=== PATIENT | male | born 1940 | race Caucasian/White ===

== ENCOUNTER 2018-02-09 12:48 | Emergency (ER) | payer MEDICARE, OTHER, SELFPAY ==
[2018-02-09 12:49] VITALS: BP 174/90; PULSE 61; RESP 14; TEMP 36.6; O2SAT 96; BMI 25.4
--- NOTE | 2018-02-09 13:07 | RAD_ITS ---
STUDY: X-RAY CHEST REASON FOR EXAM: Male, 77 years old. Chest pain for 2 weeks. TECHNIQUE: Frontal and lateral views of the chest. COMPARISON: None. FINDINGS: The lungs are hyperexpanded. There is no demonstrated pleural abnormality. There is borderline cardiomegaly with sternotomy wires and a dual-lead cardiac pacer. Normal mediastinum and heather. Normal visualized pulmonary arteries. There is atherosclerotic calcification of the aortic arch with tortuosity. Normal visualized thoracic spine. Normal visualized ribs, clavicles, and shoulders. There is no demonstrated abnormality of the visualized soft tissue structures of the upper abdomen. RAD/Chest PA and Lateral IMPRESSION: Borderline cardiomegaly with hyperexpansion. No acute or active cardiopulmonary disease. Electronically Signed: Carlos Alberto Santana MD at 14:01 EDT , Service support ,
--- NOTE | 2018-02-09 13:07 | EKG12_ITS ---
Test Reason : CP Blood Pressure : / mmHG Vent. Rate : 065 BPM Atrial Rate : 065 BPM P-R Int : 168 ms QRS Dur : 142 ms QT Int : 430 ms P-R-T Axes : 052 013 036 degrees QTc Int : 447 ms Normal sinus rhythm Right bundle branch block Abnormal ECG Confirmed by MARIANNA NICOLE, CATHERINE ([id number]), script editor MARSHA DAMIAN ([id number]) on 02/11/2018 2:11:34 PM Referred By: ERIN Confirmed By:CATHERINE CABRAL MD
--- NOTE | 2018-02-09 13:14 | PCA ---
NO OLD EKG
[2018-02-09 13:44] LABS: Absolute Lymphocyte Count 3.06 X10^3/ul (0.83-4.51); Absolute Neutrophil Count 2.3 X10^3/uL (2.0-7.7); Basophil# 0.01 X10^3/uL; Basophil% 0.2 % (0-1); Eosinophil# 0.18 X10^3/uL; Hematocrit 49.4 % (40-54); Hemoglobin 17.3 g/dl (13.0-16.5); Lymphocyte # 3.06 X10^3/ul (4.0); Mean Corpuscular Hgb 35.4 pg (27.0-32.0); Mean Platelet Vol. 9.9 fl (6.2-12.0); Monocyte% 8.3 % (0-10); Neutrophil # 2.25 X10^3/uL (2.7-7.7); Neutrophil % 37.5 % (47-70); POSITIVE COUNT NO; POSITIVE DIFFERENTIAL NO; POSITIVE MORPHOLOGY NO; Platelet Count 157 K/mm3 (150-450); RBC Distribution Width SD 48.9 fl (35.1-43.9); Red Blood Count 4.89 M/mm3 (4.6-6.2)
[2018-02-09 14:01] LABS: Anion Gap 7 (5-15); BUN 19 mg/dL (7-18); BUN/Creat Ratio 18.8 RATIO (10-20); Calcium,Total 9.5 mg/dL (8.5-10.1); Chloride 104 mmol/L (98-107); Creatinine, Serum 1.01 mg/dL (0.70-1.30); EST Glomerular Filtration Rate 77 mL/min (>60); Est Glom Filt Rate - Afr Amer 93 mL/min (>60); Estimated Creatinine Clearance 65.25 ml/min; Glucose 139 mg/dL (74-106); Potassium 4.2 mmol/L (3.5-5.1); Sodium Level 140 mmol/L (136-145)
--- NOTE | 2018-02-09 14:50 | ED.VISSUMM ---
- ER Visit Summary Date of Service: 02/09/18 Chief Complaint: Chest pain History of Present Illness: The patient is a 77 M presenting for evaluation secondary chest pain. Patient has an underlying history of a quintuple bypass as well as cardiac stenting in the past. Patient states that a couple weeks ago [place] and had an onset of chest pain. He described it as a tightness the last 2-3 minutes. He states that he has not had any similar episodes since then, but was concerned because the symptoms he was having were similar to what he had when he had his [place] in the past. Patient denies any DVT or PE risk factors. He is going to be establishing with Dr. Diaz a week from Friday. Physical Examination: Vital signs are within normal limits, patient is afebrile. General: Patient is well-nourished well-developed and in no acute distress. Head: Normocephalic, atraumatic Eyes: Pupils equal round and reactive bilaterally, extra occular motion intact bialterally ENT: Moist mucous membranes Neck: Supple, no lymphadenopathy, no JVD, no meningismus CVS: Heart regular rate and rhythm, no murmurs, rubs or gallops, radial pulses 2+ bilaterally Resp: Respirations nondistressed, lung sounds clear bilaterally Abdomen: Soft, nontender, nondistended, no palpable masses, normal bowel sounds Back: Nontender Extremities: Nontender, atraumatic, active full range of motion, no peripheral edema Skin: warm, no rashes, no petechia Neuro: Alert and oriented x 4, CN 2-12 intact, no lateralizing neurological defecits Psyc: Normal affect Test Results: EKG demonstrates right bundle branch block with a rate of [address] segments normal T waves. Chest x-ray shows cardiomegaly. CBC chemistry troponin are unremarkable. Emergency Department Course and Treatment: Patient presented for evaluation secondary to chest pain. His workup was negative as noted above. Patient's SUZANNA score is 3 and his heart score is 6. Patient seem to have an episode of stable angina. At this point I do not believe that he requires admission. I discussed patient's case with Dr. Diaz who is in agreement and will follow the patient up as an outpatient. Patient was given signs and symptoms for which to return, and he was discharged in stable condition Disposition: Discharge Impression: 1. Stable angina This note was generated with Kiss[employer] dictation software. It may contain incorrect words, spelling, and punctuation that were not noted in review of the chart prior to signing ED Disposition - Plan for ED Patient: Disposition: Home or Assisted Living Chief Complaint: Chest Pain Instructions: ED Chest Pain Angina Stable Referrals: Gregg Diza MD [STAFF PHYSICIAN] - Keep Velma appointment
--- NOTE | 2018-02-09 14:55 | ED.DCSUM_ITS ---
- ER Visit Summary Date of Service: 02/09/18 Chief Complaint: Chest pain History of Present Illness: The patient is a 77 M presenting for evaluation secondary chest pain. Patient has an underlying history of a quintuple bypass as well as cardiac stenting in the past. Patient states that a couple weeks ago he [place] and had an onset of chest pain. He described it as a tightness the last 2-3 minutes. He states that he has not had any similar episodes since then, but was concerned because the symptoms he was having were similar to what he had when he had his [place] in the past. Patient denies any DVT or PE risk factors. He is going to be establishing with Dr. Diaz a week from Friday. Physical Examination: Vital signs are within normal limits, patient is afebrile. General: Patient is well-nourished well-developed and in no acute distress. Head: Normocephalic, atraumatic Eyes: Pupils equal round and reactive bilaterally, extra occular motion intact bialterally ENT: Moist mucous membranes Neck: Supple, no lymphadenopathy, no JVD, no meningismus CVS: Heart regular rate and rhythm, no murmurs, rubs or gallops, radial pulses 2 + bilaterally Resp: Respirations nondistressed, lung sounds clear bilaterally Abdomen: Soft, nontender, nondistended, no palpable masses, normal bowel sounds Back: Nontender Extremities: Nontender, atraumatic, active full range of motion, no peripheral edema Skin: warm, no rashes, no petechia Neuro: Alert and oriented x 4, CN 2-12 intact, no lateralizing neurological defecits Psyc: Normal affect Test Results: EKG demonstrates right bundle branch block with a rate of [address] segments normal T waves. Chest x-ray shows cardiomegaly. CBC chemistry troponin are unremarkable. Emergency Department Course and Treatment: Patient presented for evaluation secondary to chest pain. His workup was negative as noted above. Patient's SUZANNA score is 3 and his heart score is 6. Patient seem to have an episode of stable angina. At this point I do not believe that he requires admission. I discussed patient's case with Dr. Diaz who is in agreement and will follow the patient up as an outpatient. Patient was given signs and symptoms for which to return, and he was discharged in stable condition Disposition: Discharge Impression: 1. Stable angina This note was generated with [employer] dictation software. It may contain incorrect words, spelling, and punctuation that were not noted in review of the chart prior to signing ED Disposition - Plan for ED Patient: Disposition: Home or Assisted Living Chief Complaint: Chest Pain Instructions: ED Chest Pain Angina Stable Referrals: Gregg Diaz MD [STAFF PHYSICIAN] - Keep Velma appointment
[2018-02-09 14:57] VITALS: BP 174/89; PULSE 71; RESP 16; O2SAT 98
== END 2018-02-09 14:58 | disposition home or self-care (01) ==
PROVIDERS: Emergency Provider Emergency Medicine; Family Provider Family Medicine; PCP Family Medicine
DX: I25.118 Atherosclerotic heart disease of native coronary artery with other forms of angina pectoris (principal); I25.2 Old myocardial infarction; Z95.1 Presence of aortocoronary bypass graft; Z95.5 Presence of coronary angioplasty implant and graft
CPT/HCPCS: 71046; 80048; 84484; 85025; 93005; 99284

== ENCOUNTER → 2018-03-05 07:03 | Outpatient (CLI) | payer MEDICARE, OTHER, SELFPAY ==
--- NOTE | 2018-03-05 07:06 | ECHOD_ITS ---
Reason For Study: CAD Procedure This was a 2D Doppler, Color Flow transthoracic echocardiogram. The exam was of adequate technical quality. Exam performed in department. Left Ventricle Normal LV size. Sigmoid septum. Left ventricular systolic function is normal. The estimated ejection fraction is 55 %. Diastolic dysfunction: considered indeterminate. No regional wall motion abnormalities noted. Right Ventricle Normal RV size. ICD or pacer leads identified within the right ventricle. Normal systolic function. Atria The left atrium is mildly enlarged. Normal right atrium. ICD or pacer leads identified within the right atrium. No doppler evidence for ASD. Mitral Valve Normal mitral valve. Mild diffuse mitral valve thickening. Mild mitral valve prolapse, posterior leaflet. Trivial mitral valve insufficiency. Tricuspid Valve Normal tricuspid valve. Trivial tricuspid valve insufficiency. Right ventricular systolic pressure estimated to be 23 mmHg. Aortic Valve Trisinus/trileaflet aortic valve. Normal aortic valve. Pulmonic Valve The pulmonic valve is not well visualized. Trivial pulmonic valve insufficiency. Great Vessels Normal sized aortic root. Pericardium/Pleural No pericardial effusion. MMode/2D Measurements & Calculations LVIDd: 3.8 cm IVSd: 0.82 cm Ao root diam: 3.1 cm LVIDs: 3.0 cm FS: 22.6 % LA dimension: 3.2 cm LAV(MOD-bp): 43.8 ml EDV(MOD-sp4): 101.4 ml EDV(MOD-sp2): 111.1 ml LAV(MOD-bp) Indexed: 22.1 ml/m2 ESV(MOD-sp4): 60.0 ml EF(MOD-sp2): 64.1 % LAV(MOD-sp2): 42.2 ml EF(MOD-sp4): 40.9 % LAV(MOD-sp4): 39.8 ml SV(MOD-sp4): 41.4 ml SV(MOD-sp2): 71.3 ml LA A4 area: 15.4 cm2 RA A4 area: 12.7 cm2 Doppler Measurements & Calculations MV E max deejay: 53.2 cm/sec Lat Peak E' Deejay: 5.3 cm/sec Med Peak E' Deejay: 6.0 cm/sec MV A max deejay: 71.2 cm/sec E/E' lat: 10.0 E/E' med: 8.9 MV E/A: 0.75 Ao V2 max: 93.7 cm/sec LV V1 max: 78.6 cm/sec PA V2 max: 117.5 cm/sec Ao max P.5 mmHg LV V1 max P.5 mmHg TR max deejay: 224.1 cm/sec TR max P.1 mmHg Interpretation Summary Left ventricular systolic function is normal. The estimated ejection fraction is 55 %. Sigmoid septum. The left atrium is mildly enlarged. Mild diffuse mitral valve thickening. Mild mitral valve prolapse, posterior leaflet Trivial mitral valve insufficiency. Trivial tricuspid valve insufficiency. Trivial pulmonic valve insufficiency. Right ventricular systolic pressure estimated to be 23 mmHg. Diastolic dysfunction: considered indeterminate ICD or pacer leads identified within the right atrium ICD or pacer leads identified within the right ventricle. Ordering Physician: Gregg Diaz Referring Physician: MICHAEL VANG Performed By: Antonella Ashton, HERICS, RVT
--- NOTE | 2018-03-05 19:04 | STRESSREP_ITS ---
Stress Test Report Date: 03/05/2018 Procedure: Pharmacologic stress nuclear imaging study Indications: Chest pain; CAD; PCI Consent: Per the patient Procedure: The patient underwent pharmacologic (Regadenoson) evaluation with a peak heart rate of 97 beats per minute (66 predicted maximal heart rate) and a peak blood pressure of 196/98 mmHg. The baseline ECG demonstrated sinus rhythm; right bundle branch block pattern. The peak pharmacologic ECG demonstrated no obvious ECG changes. There were no cardiac dysrhythmias pretest, during pharmacologic infusion, or recovery. There was no complaint of chest discomfort during pharmacologic infusion or recovery. The examination was discontinued secondary to completion of protocol. Impression: 1. Pharmacologic (Regadenoson) evaluation 2. Peak pharmacologic ECG with no obvious ECG changes. 3. No cardiac dysrhythmias pretest, during pharmacologic infusion, or recovery 4. Nuclear images pending Myocardial perfusion imaging study: Technique: The patient was injected with 10.8 millicuries of technetium 99m Cardiolite and subsequently rest SPECT Cardiolite nuclear imaging was obtained in the horizontal long, vertical long, and short axis views. The patient underwent pharmacologic (Regadenoson) evaluation with a peak heart rate of 97 beats per minute (66% percent predicted maximal heart rate) and a peak blood pressure of 196/98 mmHg. The patient was injected with the 33.5 millicuries of technetium 99m Cardiolite and subsequently stress SPECT Cardiolite nuclear imaging was obtained in the horizontal long, vertical long, and short axis views. A gated Cardiolite study at peak stress was obtained. Interpretation: Rest and stress SPECT Cardiolite nuclear imaging status post realignment, normalization, and attenuation correction demonstrate the appearance, status post stress, of an area of decreased cardio perfusion/tracer uptake in the distal inferior and inferior apical segments. There is end systolic thickening and brightening. The gated Cardiolite study demonstrates myocardial thickening and inward wall motion. The reported LVEF is 69 %. Impression: 1. And stress SPECT cardio light nuclear imaging demonstrate status post stress and area of decreased tracer uptake in portions of the distal inferior and inferior apical segments appearing concerning for an area of stress-induced myocardial ischemia. 2. The gated Cardiolite study reports an LVEF of 69 %. This note was generated with TutorialTabation software. It may contain incorrect words, spelling, and punctuation that were not noted in checking the note before signing.
== END ==
PROVIDERS: Family Provider Family Medicine; PCP Family Medicine; Visit Provider Internal Medicine Cardiovascular Disease
DX: I25.10 Atherosclerotic heart disease of native coronary artery without angina pectoris (principal); R07.9 Chest pain, unspecified; Z95.0 Presence of cardiac pacemaker; Z95.1 Presence of aortocoronary bypass graft; Z98.61 Coronary angioplasty status
CPT/HCPCS: 78452; 93017; 93306; A9500; A4216; J2785

== ENCOUNTER → 2018-03-17 08:54 | Day surgery (SDC) | payer MEDICARE, OTHER, SELFPAY ==
[2018-03-16 09:15] LABS: Hematocrit 51.2 % (40-54); Mean Corp Hgb Conc 36.3 g/gl (32-36); Mean Corpuscular Hgb 36.5 pg (27.0-32.0); Mean Corpuscular Volume 100.6 fL (80-94); Mean Platelet Vol. 9.8 fl (6.2-12.0); Platelet Count 135 K/mm3 (150-450); RBC Distribution Width SD 48.2 fl (35.1-43.9); Red Blood Count 5.09 M/mm3 (4.6-6.2); White Blood Count 6.7 K/mm3 (4.4-11.0)
[2018-03-16 09:24] LABS: Prothrombin Time (Protime)PT. 13.2 SECONDS (11.7-14.9)
[2018-03-16 09:25] LABS: Partial Thromboplast Time 25.6 Seconds (24.1-36.2)
[2018-03-16 09:38] LABS: Anion Gap 5 (5-15); BUN 15 mg/dL (7-18); BUN/Creat Ratio 13.4 RATIO (10-20); Calcium,Total 9.4 mg/dL (8.5-10.1); Chloride 104 mmol/L (98-107); Creatinine, Serum 1.12 mg/dL (0.70-1.30); EST Glomerular Filtration Rate 68 mL/min (>60); Est Glom Filt Rate - Afr Amer 82 mL/min (>60); Glucose 164 mg/dL (74-106); Potassium 4.4 mmol/L (3.5-5.1); Sodium Level 138 mmol/L (136-145)
[2018-03-16 09:59] LABS: Hemoglobin 18.6 g/dl (13.0-16.5); Scan Indicated on CBC? Y/N NO
[2018-03-16 14:50] VITALS: BMI 25.4
--- NOTE | 2018-03-17 11:45 | CL.D_ITS ---
Patient Name: FRANK MUSTAFA Study Date: 03/17/2018 Performing: Gregg Diaz MD Ht: 70.07 inches 178 cm : 1940 Wt: 176.37 lbs 80 kg Age: 77 Gender: male BSA: 1.98 PROCEDURE(S) PERFORMED IF02-OIE/COR/LV/CABG CLINICAL PROFILE AND INDICATIONS Indications: Other: Abnormal Stress Nuclear Study Heart Failure: None Stress/Imaging Stress Test w/SPECT MPI: Yes Result: PositiveStress Test with SPECT MPI: Positive Angina Classification Anginal Classification w/in 2 Weeks: CCS III CAD Presentations: Stable angina. CONCLUSIONS Normal Left Ventricular End Diastolic Pressure Segmented LV systolic dysfunction- Mild LVEF: by LV gram 50 % [place] Multivessel CAD BYERS to LAD: patent SVG to DX1: patent SVG to OM3: patent SVG to OM1: previously reported as occluded SVG to RCA: previously reported as occluded RECOMMENDATIONS Risk factor modification Medical therapy DESCRIPTION OF PROCEDURE The patient arrived to the procedure lab. The risks and benefits of the procedure as well as a full d escription of our services here and current unavailability of surgical backup were fully explained to the patient and/or their significant other prior to the catheterization. The Timeout was completed, verifying the correct patient and procedure. The patient's procedural site was prepped and draped in the usual fashion. Local anesthetic was given subcutaneously to right groin region with Lidocaine 2%. Using a modified Seldinger technique, arterial access was obtained via the right femoral artery, a 4 Fr sheath was inserted Left Coronary Artery selective angiography was performed in multiple views us ing a 4 Fr. JL4 catheter. Right Coronary Artery selective angiography was then performed in multiple views using a 4 Fr. JR4 catheter. Saphenous Vein graft to the DIAG 1 selective angiography was perfor med in multiple views using a 4 Fr. JR4 catheter. Saphenous Vein graft to the OM 3 selective angiogra phy was performed in multiple views using a 4 Fr. JR4 catheter. Left internal mammary artery graft to the LAD selective angiography was performed in multiple views using a 4 Fr. JR4 catheter. Left Ventr iculography was performed in WAGGONER projection using a 4 Fr. Pigtail catheter. LV to AO pullback pressur es were then recorded.The arterial sheath was pulled and manual compression applied until hemostasis is achieved. CORONARY ANGIOGRAPHY DOMINANCE: Right Dominant LEFT HEART ASSESSMENT Left Ventricular Ejection Fraction: by LV Gram 50 % Inferior Basal Akinesis. Inferior Mid Hypokinesis. Inferior Apical Hypokinesis Normal Left Ventricular End Diastolic Pressure LVEDP: 7 mmHg LEFT MAIN: Mild calcification, Mild luminal irregularities LEFT ANTERIOR DECENDING ARTERY: PROX LAD: Eccentric: 95 % Stenosis MID LAD: Eccentric: 95 % Stenosis DISTAL LAD: Apical: small caliber vessel: diffuse: irregular: subtotally occluded CIRCUMFLEX ARTERY: PROX CIRC: Mild luminal irregularities, Non-obstructive, is occluded OM 1: Proximal - small caliber vessel: diffuse: irregular 25-50 % Stenosis OM 3: Proximal - fills from the SVG graft with no angiographically significant disease distal to yvette t attachment RIGHT CORONARY ARTERY: PROX RCA: Previously placed stent is patent MID RCA: Mild luminal irregularities RIGHT AV SEGMENT: Previously placed stent is patent GRAFTS: BYERS graft to the Mid LAD is patent Saphenous Vein graft to the 1st Diagonal is patent Saphenous Vein graft to the 3rd OM is patent Saphenous Vein graft to the 1st OM is previously reported as occluded and not reevaluated during this examination Saphenous Vein graft to the RCA is previously reported as occluded and not reevaluated during this ex amination VALVE FINDINGS: Normal Aortic Valve function Normal Mitral Valve function AORTIC ROOT: Angiographically normal COMPLICATIONS No Complications PROCEDURE MEDICATIONS Versed 1 mg IV Versed 1 mg IV Oxygen: 2 L/min via nasal cannula SUMMARY OF HEMODYNAMIC DATA Time AIR REST ECG 09:17:52 ECG 10:26:58 AO 145/80 (106) SA 10:57:41 LV 136/-2, 6 11:01:51 LV 138/-2, 7 11:01:58 LVp 138/-3, 6 11:02:09 AOp 142/76 (103) 11:02:15 LV 162/2, 16 11:13:40 LV 150/1, 13 11:13:48 LV 143/2, 16 11:14:59 LVp 159/1, 19 11:15:14 AOp 160/82 (115) 11:15:19 Signed By Gregg Diaz MD On 03/17/2018 11:44:55 Gregg Diaz MD
== END ==
PROVIDERS: Family Provider Family Medicine; PCP Family Medicine; Visit Provider Internal Medicine Cardiovascular Disease
DX: I25.810 Atherosclerosis of coronary artery bypass graft(s) without angina pectoris (principal); R07.9 Chest pain, unspecified; I10 Essential (primary) hypertension; E78.5 Hyperlipidemia, unspecified; I45.10 Unspecified right bundle-branch block; M19.90 Unspecified osteoarthritis, unspecified site; R94.39 Abnormal result of other cardiovascular function study; Z79.82 Long term (current) use of aspirin; Z79.899 Other long term (current) drug therapy; Z95.0 Presence of cardiac pacemaker; Z95.1 Presence of aortocoronary bypass graft; Z95.5 Presence of coronary angioplasty implant and graft
CPT/HCPCS: 36415; 80048; 85027; 85610; 85730; 93459; 99152; 99153; J7040; C1894; Q9967

== ENCOUNTER 2018-09-18 18:58 | Observation (INO) | payer MEDICARE, OTHER, SELFPAY ==
[2018-09-14 09:18] VITALS: BMI 25.6
[2018-09-18] VITALS (13 sets, daily range): BP systolic 129–190; BP diastolic 72–121; PULSE 64–87; RESP 16–20; TEMP 36.2–36.7; O2SAT 95–97; BMI 25.2
--- NOTE | 2018-09-18 12:53 | EKG12_ITS ---
Test Reason : PRE-OP Blood Pressure : / mmHG Vent. Rate : 124 BPM Atrial Rate : 124 BPM P-R Int : 000 ms QRS Dur : 136 ms QT Int : 166 ms P-R-T Axes : 000 012 000 degrees QTc Int : 238 ms Wide QRS tachycardia with frequent ventricular-paced complexes and Premature supraventricular complex es in a pattern of bigeminy Right bundle branch block Abnormal ECG When compared with ECG of 09-FEB-2018 13:01, Electronic ventricular pacemaker has replaced Sinus rhythm Vent. rate has increased BY 59 BPM Confirmed by SHANNON MELO ([id number]), social media editor MARSHA DAMIAN ([id number]) on 09/30/2018 2:47:37 PM Referred By: Teddy Eli Confirmed By:SHANNON MELO
[2018-09-18 13:20] LABS: Hematocrit 46.1 % (40-54); Hemoglobin 16.2 g/dl (13.0-16.5); Mean Corp Hgb Conc 35.1 g/gl (32-36); Mean Corpuscular Hgb 35.5 pg (27.0-32.0); Mean Corpuscular Volume 101.1 fL (80-94); Mean Platelet Vol. 9.5 fl (6.2-12.0); Platelet Count 234 K/mm3 (150-450); RBC Distribution Width CV 12.2 % (11.6-14.6); RBC Distribution Width SD 44.7 fl (35.1-43.9); Red Blood Count 4.56 M/mm3 (4.6-6.2)
[2018-09-18 13:24] LABS: Scan Indicated on CBC? Y/N NO
[2018-09-18 13:28] LABS: Anion Gap 7 (5-15); BUN 19 mg/dL (7-18); BUN/Creat Ratio 15.6 RATIO (10-20); Calcium,Total 9.1 mg/dL (8.5-10.1); Chloride 105 mmol/L (98-107); Creatinine, Serum 1.22 mg/dL (0.70-1.30); EST Glomerular Filtration Rate 61 mL/min (>60); Est Glom Filt Rate - Afr Amer 74 mL/min (>60); Estimated Creatinine Clearance 54.02 ml/min; Glucose 142 mg/dL (74-106); Sodium Level 141 mmol/L (136-145)
--- NOTE | 2018-09-18 14:15 | RAD_ITS ---
HISTORY: Gallstones. COMPARISON: None FINDINGS: Total Fluoroscopic Time: 61 seconds with total radiation dose 26.2 mgy # of Fluroscopic Images: 121 Multiple spot intraoperative films are presented for evaluation. Gallbladder intraluminal filling defects related to gallstones. No filling defects are identified in the common bile duct. There is no extrahepatic biliary ductal dilatation. There is free flow of contrast into the duodenum. RAD/Cholangiogram/ O R,Initial IMPRESSION: 1. Negative exam. No biliary dilatation or retained common duct stones. 2. Please see surgical report for competence of details at 0026 Reported and signed by: Axel Cantrell MD Electronically Signed: Axel Cantrell, at 0:24 EST Tel , Service support ,
--- NOTE | 2018-09-18 14:15 | GALL_PTH ---
PATIENT: FRANK MUSTAFA LOC: MS2 U#:[id number] AGE/SX: 77/M [place] [facility] [id number] RE09/18/[address]: Dr. Teddy Eli MD : 1940 BED: 1 DIS: 09/19/2018 SPEC #: [id number] RECD: 09/21/18 09:40 STATUS: YOBANI LETTY #: [id number] LAUREN: 09/18/18 14:[address]: Teddy Eli DEPT: SURGICAL PATHOLOGY RECD BY: Flory Brady ENTERED: 09/21/18 11:15 SP TYPE: NAVIN NELSON DR: Dr. 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 Focal epithelial dysplastic changes. SJ:chris 09/22/18 COMMENT Case has been reviewed in consultation with Dr. Kulkarni who concurs with the above diagnosis. IDC:AM MICROSCOPIC DESCRIPTION Slides are reviewed. GROSS DESCRIPTION Received is one container labeled with the patient's name and designated gallbladder. The specimen consists of a gallbladder measuring 9.5 cm in length and up to 4 cm in diameter. The external surface is pink-colbert, smooth and glistening for the most part. Focally it is granular, hemorrhagic and contains cautery artifact. The gallbladder contains turbid, cloudy, reddish-brown bile and multiple black, irregular stones measuring in aggregate 3.5 x 2.5 x 1 cm and 0.3 to 1.2 cm in greatest dimension. The mucosa is bile-stained and without any mass lesions. The gallbladder wall measures up to 0.5 cm in thickness. [employer]r sections from the gallbladder and the cystic duct are submitted in one cassette. / HUMBERTO:chris 09/21/18 More sections from the gallbladder wall are submitted in three more cassettes, 2-4. / HUMBERTO:chris 09/22/18 TC:2 CPT: 73736
[2018-09-18] MEDS: Bupiv/Epi 0.5% Mpf 30 ML Vial (17:17)
--- NOTE | 2018-09-18 17:36 | PCM.DC.GB ---
Discharge Diet: Light diet - advance as tolerated Discharge Activity: Return to Normal Activity, May Not Drive - for 2-3 days or while taking narcotic pain medicataions., - - Do not drive, work heavy equipment or sign legal documents for 24 hours. May shower in (days): 1 - with the bandage in place. Lifting Restrictions: 20 lbs for 2 weeks Additional Activity Instructions:: Pain medication may cause nausea. You should typically eat light foods as you take your pain medications. Pain medication may also cause constipation. If this is a problem for you, please discuss with your doctor. Call your doctor if your incision/area has: Continuous Slow Oozing, Sudden Increased Bleeding, Increased Pain/ Swelling, Increased Redness, Foul Smelling Discharge, Fever of 101 or Higher Call your doctor if you observe: Fever of 101 or Higher Suture Line Care: Avoid Pulling/Pushing, Avoid Pinching/Bending Additional Dressing/Incision Instructions:: Leave operative bandaids on for 2 days. When you remove dressing, leave Steri-Strips on until your follow-up appointment, or until the Steri-Strips fall off on their own. Allergies/Adverse Reactions: Allergies No Known Allergies Allergy (Verified 09/17/18 12:07) Medications to take at Discharge aspirin 81 mg tablet,delayed release 162 mg PO QDAY 02/17/18 calcium carbonate 600 mg calcium (1,500 mg) tablet 600 mg PO QDAY tab 02/17/18 carvedilol 12.5 mg tablet 12.5 mg PO BID 02/17/18 pravastatin 40 mg tablet 40 mg PO QDAY 02/17/18 multivitamin tablet 1 tab PO QDAY 02/20/18 nitroglycerin 0.4 mg sublingual tablet 0.4 mg SUBLINGUAL Q5M PRN #90 tab 02/20/18 Oxycodone HCl/Acetaminophen [Percocet 5/325] 1 - 2 tablet PO Q4H PRN PRN 7 Days #30 tablet 09/18/18 The following prescriptions were given: Oxycodone HCl/Acetaminophen [Percocet 5/325] 1 - 2 tablet PO Q4H PRN PRN 7 Days #30 tablet PRN Reason: Pain Primary Care Physician: Adam Simms MD [Primary Care Provider] - Test Results: Test results from this visit will be discussed in further detail at your follow-up appointment, if applicable. Please Follow Up With: Teddy Eli MD When: Please call to schedule 2 week follow up appointment. [phone]
--- NOTE | 2018-09-18 17:38 | OP.PCM_ITS ---
Problem List (1) Acute cholecystitis Status: Acute Report of Operation Date of Procedure: 09/18/18 Pre-Operative Diagnosis: Cholecystitis Post-Operative Diagnosis: Acute cholecystitis Surgery/Procedure Performed:: Laparoscopic cholecystectomy with cholangiogram Description of Surgical Findings:: Patient had a very inflamed gallbladder. Intraoperative cholangiogram showed good flow into the duodenum with no filling defects. Specimen's removed: Gallbladder and contents Description of Procedure: After obtaining informed consent patient was brought back to the operating room. General anesthesia was induced. The abdomen was prepped and draped in usual sterile fashion. A small midline incision was made superior to the umbilicus a nd deepened to the level of fascia. The fascia was elevated and incised. Next the peritoneum was elevated and incised in the same fashion. Finger sweep was performed and the Castañeda trocar was placed into the abdomen. The balloon was inflated. The abdomen was inflated to 15 mmHg. Next a camera was introduced into the abdomen and the abdomen was inspected. Next under direct visualization three 5-mm ports were placed one subxiphoid and 2 subcostal. The gallbladder was very inflamed. The gallbladder was punctured with an aspiration needle and the contents were aspirated. Next the gallbladder was elevated and retracted toward the right shoulder. The peritoneum was stripped from the gallbladder. The infundibulum was located and retracted laterally. Next the triangle of Calot was dissected and the cystic duct and cystic artery were identified. Cholangiograms were performed. The Cain catheter was used to clamp across the infundibulum and the needle was inserted into the gallbladder. Under fluoroscopy contrast was instilled into the gallbladder and the common duct, cystic duct as well as proximal hepatic ducts were identified. There was good filling of the duodenum. There were no filling defects noted in the common bile duct. The clamp was removed as well as the needle and the infundibulum was grasped once more. Three hemolock clips were placed across the cystic duct. The cystic duct was then divided leaving 2 clips on the stump. The cystic artery was clipped and divided in the same fashion. The hook cautery was then used to take the gallbladder off of the gallbladder bed. Hemostasis was obtained. Gallbladder fossa was irrigated and no active bleeding or bile leakage was noted. Next the camera switched to a 5 mm camera and introduced in the subxiphoid port. An Endopouch bag was placed through the umbilical port and the gallbladder was placed into it. The gallbladder was then removed through the umbilical incision. The camera was then reinserted through the umbilical port. The gallbladder fossa was inspected once more and noted to be hemostatic with no leaking bile. The abdomen was suctioned dry the 5 mm ports were removed under direct visualization. The umbilical port was then removed and the air was removed from the abdomen. Next using an 0 Vicryl suture the umbilical fascia was closed in a [id number] fashion. The umbilical port site was irrigated local anesthetic was administered to all the incisions. All the incisions were closed subcuticular 4-0 Monocryl sutures followed by Steri-Strips and dressings. The patient was awoken and taken to PACU in stable condition. - Admit VTE Documentation VTE Mechan Device Prophylaxis: SCD's
[2018-09-18] MEDS: Carvedilol 12.5 MG Tablet PO (21:01)
[2018-09-18] MEDS: Docusate Sodium 100 MG Capsule PO (21:01)
[2018-09-18] MEDS: Morphine 2 MG/ML Syringe IV (21:21)
[2018-09-18] MEDS: 0.9% Normal Saline 1,000 ML 100 ML IV (21:26)
[2018-09-18] MEDS: oxyCODONE 5 MG Tablet PO (22:42)
[2018-09-19 00:28] VITALS: BP 138/77; PULSE 80; RESP 16; TEMP 36.7; O2SAT 97
[2018-09-19] MEDS: Acetaminophen 325 MG Tablet 650 MG PO ×2 (00:56→07:20)
[2018-09-19 05:33] VITALS: BP 142/78; PULSE 68; RESP 16; TEMP 36.8; O2SAT 95
[2018-09-19 05:39] VITALS: PULSE 68; RESP 16; O2SAT 95
[2018-09-19 06:52] LABS: Absolute Lymphocyte Count 2.28 X10^3/ul (0.83-4.51); Absolute Neutrophil Count 5.7 X10^3/uL (2.0-7.7); Basophil# 0.02 X10^3/uL; Basophil% 0.2 % (0-1); Eosinophil# 0.04 X10^3/uL; Eosinophils% 0.5 % (0-5); Hematocrit 41.3 % (40-54); Hemoglobin 14.4 g/dl (13.0-16.5); Lymphocyte # 2.28 X10^3/ul (4.0); Lymphocyte % 25.8 % (19-41); Mean Corp Hgb Conc 34.9 g/gl (32-36); Mean Corpuscular Hgb 35.7 pg (27.0-32.0); Mean Corpuscular Volume 102.5 fL (80-94); Mean Platelet Vol. 9.7 fl (6.2-12.0); Monocyte# 0.73 X10^3/uL; Monocyte% 8.3 % (0-10); Neutrophil # 5.74 X10^3/uL (2.7-7.7); Platelet Count 187 K/mm3 (150-450); RBC Distribution Width SD 44.3 fl (35.1-43.9); Red Blood Count 4.03 M/mm3 (4.6-6.2); White Blood Count 8.8 K/mm3 (4.4-11.0)
[2018-09-19 06:58] LABS: POSITIVE COUNT NO; POSITIVE DIFFERENTIAL NO; POSITIVE MORPHOLOGY NO
[2018-09-19 07:07] LABS: ALB/GLOB Ratio 0.9 RATIO (0.9-2.4); AST(SGOT) 98 U/L (15-37); Alanine Aminotransfer ALT/SGPT 108 U/L (16-61); Albumin, Serum 2.9 g/dL (3.2-5.0); Alkaline Phosphatase 74 U/L (45-117); Anion Gap 8 (5-15); BUN 16 mg/dL (7-18); BUN/Creat Ratio 14.3 RATIO (10-20); Calcium,Total 8.2 mg/dL (8.5-10.1); Chloride 103 mmol/L (98-107); Creatinine, Serum 1.12 mg/dL (0.70-1.30); EST Glomerular Filtration Rate 68 mL/min (>60); Est Glom Filt Rate - Afr Amer 82 mL/min (>60); Estimated Creatinine Clearance 58.84 ml/min; Globulin 3.3 g/dL (2.2-4.2); Glucose 201 mg/dL (74-106); Potassium 3.9 mmol/L (3.5-5.1); Protein, Total 6.2 g/dL (6.4-8.2); Sodium Level 138 mmol/L (136-145)
--- NOTE | 2018-09-19 07:42 | PCM.PN.SRG ---
Patient Problems: Active and Suspected Problems (Last Reviewed 09/14/18 @ 09:17 by Chio Trejo) Acute cholecystitis (Acute) Subjective: Patient is doing well this morning with no nausea or vomiting. His pain is well controlled on Tylenol. He is tolerating a diet. - Physical Exam General: Alert, Oriented x3, Cooperative, No apparent distress HEENT: Atraumatic Lungs: Normal air movement Cardiovascular: Regular rate, Regular Rhythm Abdomen: Soft, Non Tender, Non-Distended Vital Signs Temp Pulse Resp BP Pulse Ox 98.2 F 68 16 142/78 H 95 09/19/18 05:33 09/19/18 05:39 09/19/18 05:39 09/19/18 05:33 09/19/18 05:39 Oxygen Flow Rate (L/min) 1 Oxygen Delivery Method Nasal Cannula Weight: 175 lb 14.862 oz Body Mass Index (BMI) 25.2 Intake and Output for Last 24 Hours 09/17/18 09/18/18 09/19/18 23:59 23:59 23:59 Intake Total 1600 / 1600 1439 / 1439 Output Total 475 / 475 Balance 1600 / 1600 964 / 964 Laboratory Tests Past 24 Hrs 09/18/18 09/18/18 09/19/18 13:00 13:00 06:28 WBC 8.0 8.8 RBC 4.56 L 4.03 L Hgb 16.2 14.4 Hct 46.1 41.3 MCV 101.1 H 102.5 H MCH 35.5 H 35.7 H MCHC 35.1 34.9 RDW 12.2 12.0 RDW Differential 44.7 H 44.3 H Plt Count 234 187 MPV 9.5 9.7 Immature Gran % (Auto) 0.200 Neut % (Auto) 65.0 Lymph % (Auto) 25.8 [place] % (Auto) 8.3 Eos % (Auto) 0.5 Baso % (Auto) 0.2 Absolute Neuts (auto) 5.7 Absolute Lymphs (auto) 2.28 Total Counted Not Reportable Sodium 141 Potassium 4.0 Chloride 105 Carbon Dioxide 29.0 Anion Gap 7 BUN 19 H Creatinine 1.22 Estim Creat Clear Calc 54.02 Est GFR (MDRD) Af Amer 74 Est GFR (MDRD) Non-Af 61 BUN/Creatinine Ratio 15.6 Glucose 142 H Calcium 9.1 Total Bilirubin AST ALT Alkaline Phosphatase Total Protein Albumin Globulin Albumin/Globulin Ratio 09/19/18 06:28 WBC RBC Hgb Hct MCV MCH MCHC RDW RDW Differential Plt Count MPV Immature Gran % (Auto) Neut % (Auto) Lymph % (Auto) [place] % (Auto) Eos % (Auto) Baso % (Auto) Absolute Neuts (auto) Absolute Lymphs (auto) Total Counted Sodium 138 Potassium 3.9 Chloride 103 Carbon Dioxide 27.0 Anion Gap 8 BUN 16 Creatinine 1.12 Estim Creat Clear Calc 58.84 Est GFR (MDRD) Af Amer 82 Est GFR (MDRD) Non-Af 68 BUN/Creatinine Ratio 14.3 Glucose 201 H Calcium 8.2 L Total Bilirubin 1.20 H AST 98 H ALT 108 H Alkaline Phosphatase 74 Total Protein 6.2 L Albumin 2.9 L Globulin 3.3 Albumin/Globulin Ratio 0.9 Medical Necessity - Tobacco Use Smoking Status: Former smoker Assessment/Plan All Active Problems (Last Reviewed 09/14/18 @ 09:17 by Chio Trejo) Acute cholecystitis (Acute) Chest pain (Acute) Abnormal stress test (Acute) History of third degree heart block (Acute) RBBB (right bundle branch block) (Acute) 77-year-old male with acute cholecystitis status post laparoscopic cholecystectomy 1. Patient is doing well this morning. He is okay for discharge. He will follow-up with me in 2 weeks. Teddy Eli MD Pager: [facility] [address] [place] [address], [address] [place] [address] Office:
--- NOTE | 2018-09-19 07:43 | PCM.DC.SUM ---
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) CABG x5- BYERS to LAD, SVG to Diagonal, SVG to OM1, SVG to OM3, SVG to RCA 04/05/14 Presence of stent in coronary artery (Chronic ~05/04/14) PCI to the Distal RCA and PTCA/Stent x2 to Mid-Proximal RCA 05/04/14 Postsurgical percutaneous transluminal coronary angioplasty (PTCA) status (Chronic) PCI to the Distal RCA and PTCA/Stent x2 to Mid-Proximal RCA 05/04/14 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 Negative exam. No biliary dilatation or retained common duct stones. 2. Please see surgical report for competence of details at 0026 Reported and signed by: Axel Cantrell MD Electronically Signed: Axel Cantrell, at 0:24 EST Tel , Service support , Operations: [email or web address] Procedures: None Summary of Care Provided: The patient is a 77 year old M who was having right upper quadrant pain in the office. He had acute cholecystitis at an outside hospital. The patient had an elective cholecystectomy but due to the time of the surgery as it was late in the afternoon he was admitted for observation following surgery. The following morning he was tolerating a diet and doing well and discharged home in stable condition. - Physical Exam Vital Signs Temp Pulse Resp BP Pulse Ox 98.2 F 68 16 142/78 H 95 09/19/18 05:33 09/19/18 05:39 09/19/18 05:39 09/19/18 05:33 09/19/18 05:39 Oxygen Flow Rate (L/min) 1 Oxygen Delivery Method Nasal Cannula Weight: 175 lb 14.862 oz Body Mass Index (BMI) 25.2 Intake and Output for Last 24 Hours 09/17/18 09/18/18 09/19/18 23:59 23:59 23:59 Intake Total 1600 / 1600 1439 / 1439 Output Total 475 / 475 Balance 1600 / 1600 964 / 964 Laboratory Tests Past 24 Hrs 09/18/18 09/18/18 09/19/18 13:00 13:00 06:28 WBC 8.0 8.8 RBC 4.56 L 4.03 L Hgb 16.2 14.4 Hct 46.1 41.3 MCV 101.1 H 102.5 H MCH 35.5 H 35.7 H MCHC 35.1 34.9 RDW 12.2 12.0 RDW Differential 44.7 H 44.3 H Plt Count 234 187 MPV 9.5 9.7 Immature Gran % (Auto) 0.200 Neut % (Auto) 65.0 Lymph % (Auto) 25.8 [place] % (Auto) 8.3 Eos % (Auto) 0.5 Baso % (Auto) 0.2 Absolute Neuts (auto) 5.7 Absolute Lymphs (auto) 2.28 Total Counted Not Reportable Sodium 141 Potassium 4.0 Chloride 105 Carbon Dioxide 29.0 Anion Gap 7 BUN 19 H Creatinine 1.22 Estim Creat Clear Calc 54.02 Est GFR (MDRD) Af Amer 74 Est GFR (MDRD) Non-Af 61 BUN/Creatinine Ratio 15.6 Glucose 142 H Calcium 9.1 Total Bilirubin AST ALT Alkaline Phosphatase Total Protein Albumin Globulin Albumin/Globulin Ratio 09/19/18 06:28 WBC RBC Hgb Hct MCV MCH MCHC RDW RDW Differential Plt Count MPV Immature Gran % (Auto) Neut % (Auto) Lymph % (Auto) [place] % (Auto) Eos % (Auto) Baso % (Auto) Absolute Neuts (auto) Absolute Lymphs (auto) Total Counted Sodium 138 Potassium 3.9 Chloride 103 Carbon Dioxide 27.0 Anion Gap 8 BUN 16 Creatinine 1.12 Estim Creat Clear Calc 58.84 Est GFR (MDRD) Af Amer 82 Est GFR (MDRD) Non-Af 68 BUN/Creatinine Ratio 14.3 Glucose 201 H Calcium 8.2 L Total Bilirubin 1.20 H AST 98 H ALT 108 H Alkaline Phosphatase 74 Total Protein 6.2 L Albumin 2.9 L Globulin 3.3 Albumin/Globulin Ratio 0.9 Discharge Diet: Light diet - advance as tolerated Discharge Activity: Return to Normal Activity, May Not Drive - for 2-3 days or while taking narcotic pain medicataions., - - Do not drive, work heavy equipment or sign legal documents for 24 hours. May shower in (days): 1 - with the bandage in place. Additional Activity Instructions:: Pain medication may cause nausea. You should typically eat light foods as you take your pain medications. Pain medication may also cause constipation. If this is a problem for you, please discuss with your doctor. Call your doctor if your incision/area has: Continuous Slow Oozing, Sudden Increased Bleeding, Increased Pain/ Swelling, Increased Redness, Foul Smelling Discharge, Fever of 101 or Higher Call your doctor if you observe: Fever of 101 or Higher Suture Line Care: Avoid Pulling/Pushing, Avoid Pinching/Bending Additional Dressing/Incision Instructions:: Leave operative bandaids on for 2 days. When you remove dressing, leave Steri-Strips on until your follow-up appointment, or until the Steri-Strips fall off on their own. Home Medications: Medications to take at Discharge aspirin 81 mg tablet,delayed release 162 mg PO QDAY 02/17/18 calcium carbonate 600 mg calcium (1,500 mg) tablet 600 mg PO QDAY tab 02/17/18 carvedilol 12.5 mg tablet 12.5 mg PO BID 02/17/18 pravastatin 40 mg tablet 40 mg PO QDAY 02/17/18 multivitamin tablet 1 tab PO QDAY 02/20/18 nitroglycerin 0.4 mg sublingual tablet 0.4 mg SUBLINGUAL Q5M PRN #90 tab 02/20/18 Oxycodone HCl/Acetaminophen [Percocet 5/325] 1 - 2 tablet PO Q4H PRN PRN 7 Days #30 tablet 09/18/18 Following Prescrptions Were Given to Patient: Oxycodone HCl/Acetaminophen [Percocet 5/325] 1 - 2 tablet PO Q4H PRN PRN 7 Days #30 tablet PRN Reason: Pain Primary Care Physician: Adam Simms MD [Primary Care Provider] - Please Follow Up With: Teddy Eli MD When: Please call to schedule 2 week follow up appointment. [phone] Medical Necessity - Tobacco Use Smoking Status: Former smoker Meaningful Use Info Meaningful Use Diagnoses (Choose all that apply): None applicable
[2018-09-19 08:00] VITALS: O2SAT 92
[2018-09-19 08:55] VITALS: BP 126/75; PULSE 74; RESP 16; TEMP 36.6; O2SAT 92
[2018-09-19] MEDS: Aspirin E.C. 81 MG Tablet 162 MG PO (08:59)
[2018-09-19] MEDS: Calcium (Elemental) 500 MG Tablet PO (08:59)
[2018-09-19] MEDS: Docusate Sodium 100 MG Capsule PO (08:59)
[2018-09-19] MEDS: Carvedilol 12.5 MG Tablet PO (08:59)
[2018-09-19 09:09] VITALS: O2SAT 92
[2018-09-19] MEDS: Tamsulosin HCl 0.4 MG Capsule PO (11:20)
--- OUTSIDE RECORDS SUMMARY | 2018-11-04 07:42 | XMS RPT_ITS ---
:1940 Author Organization OHIP Support Name Relationship Address Phone EZEKIEL MUSTAFA Unavailable [address] + [place] [address] R Unavailable Unavailable Unavailable RAMSEY, EZEKIEL Unavailable [address] + [place] [address] R Unavailable Unavailable Unavailable RAMSEY, EZEKIEL Unavailable [address] + [place] [address] R Unavailable Unavailable Unavailable RAMSEY, EZEKIEL Unavailable [address] + [place] [address] R Unavailable Unavailable Unavailable RAMSEY, EZEKIEL Unavailable [address] + [place] [address] R Unavailable Unavailable Unavailable RAMSEY, EZEKIEL Unavailable [address] + [place] [address] R Unavailable Unavailable Unavailable RAMSEY, EZEKIEL Unavailable Unavailable + RAMSEY, GUZMAN Unavailable Unavailable + RAMSEY, EZEKIEL Unavailable [address] + [place] [address] R Unavailable Unavailable Unavailable RAMSEY, EZEKIEL Unavailable Unavailable + RAMSEY, GUZMAN Unavailable Unavailable + RAMSEY, EZEKIEL Unavailable Unavailable + RAMSEY, GUZMAN Unavailable Unavailable + RAMSEY, EZEKIEL Unavailable Unavailable + RAMSEY, GUZMAN Unavailable Unavailable + RAMSEY, EZEKIEL Unavailable [address] [phone] [place] [address] R Unavailable Unavailable Unavailable RAMSEY, EZEKIEL Unavailable [address] + [place] [address] R Unavailable Unavailable Unavailable RAMSEY, EZEKIEL Unavailable [address] [phone] [place] [address] R Unavailable Unavailable Unavailable RAMSEY, EZEKIEL Unavailable [address] + [place] [address] R Unavailable Unavailable Unavailable RAMSEY, EZEKIEL Unavailable [address] [phone] [place] [phone] R Unavailable Unavailable Unavailable R Unavailable Unavailable Unavailable RAMSEY, EZEKIEL Unavailable [address] [phone] [place] [address] CELESTE MUSTAFA Unavailable [address] + [place] [address] R Unavailable Unavailable Unavailable RAMSEY, EZEKIEL Unavailable [address] [phone] [place] [address] CELESTE MUSTAFA Unavailable [address] + [place] [address] R Unavailable Unavailable Unavailable Care Team Providers Name Role Phone CIERA SIMMONS, DR. MICHAEL Avila Attending Unavailable CIERA SIMMONS, DR. MICHAEL Avila Primary Care Unavailable CIERA SIMMONS, DR. MICHAEL Avila Attending Unavailable CIERA SIMMONS, DR. MICHAEL Avila Primary Care Unavailable SHERLYN SIMMONS, DR. AYE Gallardo Attending Unavailable CIERA SIMMONS, DR. MICHAEL Avila Primary Care Unavailable SHERLYN SIMMONS, DR. AYE Gallardo Attending Unavailable CIERA SIMMONS, DR. MICHAEL Avila Primary Care Unavailable Teddy Eli Attending Unavailable Teddy Eli Referring Unavailable MICHAEL SIMMS Primary Care Unavailable Teddy Eli Admitting Unavailable Teddy Eli Attending Unavailable Teddy Eli Referring Unavailable MICHAEL SIMMS Primary Care Unavailable Teddy Eli Consulting Unavailable MICHAEL SIMMS Primary Care Unavailable Celeste Luciano Attending Unavailable Alcira, Teddy Admitting Unavailable Teddy Eli Attending Unavailable Teddy Eli Referring Unavailable MICHAEL SIMMS Primary Care Unavailable Teddy Eli Consulting Unavailable Teddy Eli Attending Unavailable NAUMOFF, MICHAEL Referring Unavailable Krishna Melo Attending Unavailable Calabretta, Teddy Referring Unavailable Garima Bailey Attending Unavailable Moodispaw, Gregg Attending Unavailable NAUMOFF, MICHAEL Referring Unavailable Moodispaw, Gregg Attending Unavailable Moodisp[place], Gregg Referring Unavailable NAUMOFF, MICHAEL Primary Care Unavailable Moodispaw, Gregg Attending Unavailable NAUMOFF, MICHAEL Primary Care Unavailable Mood[place], Gregg Referring Unavailable Moodispaw, Gregg Attending Unavailable [place], Gregg Attending Unavailable Chacha Mejia Attending Unavailable NAUMOFF, MICHAEL Referring Unavailable Calabretta, Teddy Attending Unavailable NAUMOFF, MICHAEL Referring Unavailable PROBLEMS PROBLEMS DATE TYPE CONDITION / CODE ATTENDING STATUS SOURCE 09/21/2018 Unknown K81.0 - Acute Calnikki, Active [facility] cholecystitis / [facility] K81.0(ICD-10) Hospital Repository 10/14/2018 Unknown R94.31 - Abnormal Krishna Melo Active [facility] electrocardiogram Community [ECG] [EKG] / Hospital R94.31(ICD-10) Repository 10/14/2018 Unknown I10 - Essential Krishna Melo Active [facility] (primary) hypertension Community / I10(ICD-10) Hospital Repository 10/14/2018 Unknown I45.10 - Unspecified Krishna Melo Active [facility] right bundle-branch Community block / I45.10(ICD-10) Hospital Repository 10/14/2018 Unknown 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 / Community I25.2(ICD-10) Hospital Repository 10/14/2018 Unknown Z95.0 - Presence of MeloKrishna Active [facility] cardiac pacemaker / Community Z95.0(ICD-10) Hospital Repository 09/14/2018 Unknown I25.810 - Calabrmadhu, Active [facility] Atherosclerosis of [facility] coronary artery bypass Hospital graft(s) without Repository angina pectoris / I25.810(ICD-10) 09/11/2018 Unknown Z86.79 - Personal Chacha Mejia Active [facility] history of other Community diseases of the Hospital circulatory system / Repository Z86.79(ICD-10) 03/17/2018 Unknown R07.9 - Chest pain, Moodispaw, Active [facility] unspecified / [place] [facility] R07.9(ICD-10) Hospital Repository 03/17/2018 Unknown Z95.1 - Presence of [place], Active [facility] aortocoronary bypass [facility] graft / Z95.1(ICD-10) Hospital Repository 03/17/2018 Unknown Z95.5 - Presence of [place], Active [place] coronary angioplasty [facility] implant and graft / Hospital Z95.5(ICD-10) Repository 03/17/2018 Unknown I25.10 - [place]aw, Active [facility] Atherosclerotic heart [facility] disease of [facility] coronary artery Repository without angina pectoris / I25.10(ICD-10) 03/17/2018 Unknown R94.39 - Abnormal [place], Active [facility] result of other [facility] cardiovascular Hospital function study / Repository R94.39(ICD-10) 02/20/2018 Unknown Z98.61 - Coronary [place], Active [facility] angioplasty status / [facility] Z98.61(ICD-10) Hospital Repository PROCEDURES PROCEDURES No Procedure Records FoundRESULTS RESULTS SURGERY VISIT REPORT Observed: 10/02/2018 Status: F Source: [place] 11:07 AM [facility] REPOSITORY [facility] [address] [place] [address]. [address] [place] [address] OFFICE VISIT Date of Service: 10/02/18 MR#: [id number] Acct: [id number] Name: FRANK MUSTAFA Rep #: [id number] : 1940 Provider: Teddy Eli MD Age/Sex: 77/M Location: [facility] Status: Signed Intake Intake Visit Reasons: F/U CHOLECYSTECTOMY 09/18/18 Chief Complaint: post robbie Circular Saw Operator Required: No Is patient in pain?: No Allergies No Known Allergies Allergy (Verified 10/02/18 10:29) Medications aspirin 81 mg tablet,delayed release 162 mg PO QDAY 02/17/18 [History Confirmed 09/18/18] calcium carbonate 600 mg calcium (1,500 mg) tablet 600 mg PO QDAY tab 02/17/18 [History Confirmed 09/18/18] carvedilol 12.5 mg tablet 12.5 mg PO BID 02/17/18 [History Confirmed 09/18/18] pravastatin 40 mg tablet 40 mg PO QDAY 02/17/18 [History Confirmed 09/18/18] multivitamin tablet 1 tab PO QDAY 02/20/18 [History Confirmed 09/18/18] nitroglycerin 0.4 mg sublingual tablet 0.4 mg SUBLINGUAL Q5M PRN #90 tab 02/20/18 [Rx Confirmed 09/18/18] Subjective Details: Patient is doing well after his laparoscopic cholecystectomy. He had some transient diarrhea after surgery but this has resolved. Objective Details: Patient's abdomen is soft and nontender. His incisions are healing well. Assessment AND Plan Problems 1. Acute cholecystitis K81.0 Plan 1. Patient is doing well after laparoscopic cholecystectomy. Activity and diet as tolerated. Follow-up as needed. Teddy Eli MD Pager: [facility] [address] [place] [address] [address] [place] [address] Office: Coding Level of Care Code Global Post Op Diagnoses Acute cholecystitis K81.0 10/02/18 1107 <Electronically signed by Teddy Eli MD> Date Teddy Eli MD Cosign Signature: Date (if applicable) CC: Michael Simms MD 12 LEAD ELECTROCARDIOGRAM Observed: 09/30/2018 Status: F Source: [place] 2:48 PM [facility] REPOSITORY [facility] [address] [place] [id number] 12 Lead EKG 09/18/18 1257 MR#: [id number] Acct: [id number] Name: FRANK MUSTAFA Rep #: [id number] : 1940 77 From: Krishna Melo MD Attending Dr: Teddy Eli MD Status: DIS JOSE LUIS Ordering Dr: Tanner Manley MD Date: 09/18/18 Location: [facility]2 Sex: M C Admitted: 09/18/18 Test Reason : PRE-OP Blood Pressure : / mmHG Vent. Rate : 124 BPM Atrial Rate : 124 BPM P-R Int : 000 ms QRS Dur : 136 ms QT Int : 166 ms P-R-T Axes : 000 012 000 degrees QTc Int : 238 ms Wide QRS tachycardia with frequent ventricular-paced complexes and Premature supraventricular complexes in a pattern of bigeminy Right bundle branch block Abnormal ECG When compared with ECG of 09-FEB-2018 13:01, Electronic ventricular pacemaker has replaced Sinus rhythm Vent. rate has increased BY 59 BPM Confirmed by KRISHNA MELO ([id number]), index editor MARSHA DAMIAN ([id number]) on 09/30/2018 2:47:37 PM Referred By: Teddy Eli Confirmed By:KRISHNA MELO 09/30/18 1447 Date Krishna Melo MD CC: Michael Simms MD; Teddy Eli MD; Tanner Manley MD Signed DISCHARGE SUMMARY Observed: 09/20/2018 Status: F Source: [place] 10:09 AM [facility] REPOSITORY [facility] Medical Records Department [address] [place] [address] Discharge Summary 09/19/18 0743 MR#: [id number] Acct: [id number] Name: FRANK MUSTAFA Rep #: [id number] : 1940 77 From: Teddy Eli MD PCP: Michael Simms MD Status: ADM JOSE LUIS Y Location: [place] [id number] Discharge Date and Diagnosis Date of Admission: 09/18/18 Date of Discharge: 09/19/18 - Primary Discharge Diagnosis Active and Suspected Problems (Last Reviewed 09/14/18 @ 09:17 by Chio Trejo) Acute cholecystitis (Acute) - Secondary Discharge Diagnosis Chronic Problems (Last Reviewed 09/14/18 @ 09:17 by Chio Trejo) 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 of permanent cardiac pacemaker (Chronic 05/06/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) CABG x5- BYERS to LAD, SVG to Diagonal, SVG to OM1, SVG to OM3, SVG to RCA 04/05/14 Presence of stent in coronary artery (Chronic 05/04/14) PCI to the Distal RCA and PTCA/Stent x2 to Mid-Proximal RCA 05/04/14 Postsurgical percutaneous transluminal coronary angioplasty (PTCA) status (Chronic) PCI to the Distal RCA and PTCA/Stent x2 to Mid-Proximal RCA 05/04/14 Atherosclerotic heart disease of [place] coronary artery without angina pectoris (Chronic) PCI to the Distal RCA and PTCA/Stent x2 to Mid-Proximal RCA 05/04/14; CABG x5- BYERS to LAD, SVG to Diagonal, SVG to OM1, SVG to OM3, SVG to RCA 04/05/14 Hyperlipidemia (Chronic) Hypertension (Chronic) Hospital Course and Treatment Imaging Results: Clinical Impression(s) from Imaging Studies Cholangiogram 09/18/18 14:15 IMPRESSION: 1. Negative exam. No biliary dilatation or retained common duct stones. 2. Please see surgical report for competence of details at 0026 Reported and signed by: Axel Cantrell MD Electronically Signed: Axel Cantrell, at 0:24 EST Tel , Service support , Operations: cholecystecomy Procedures: None Summary of Care Provided: The patient is a 77 year old M who was having right upper quadrant pain in the office. He had acute cholecystitis at an outside hospital. The patient had an elective cholecystectomy but due to the time of the surgery as it was late in the afternoon he was admitted for observation following surgery. The following morning he was tolerating a diet and doing well and discharged home in stable condition. - Physical Exam Vital Signs Temp Pulse Resp BP Pulse Ox 98.2 F 68 16 142/78 H 95 09/19/18 05:33 09/19/18 05:39 09/19/18 05:39 09/19/18 05:33 09/19/18 05:39 Oxygen Flow Rate (L/min) 1 Oxygen Delivery Method Nasal Cannula Weight: 175 lb 14.862 oz Body Mass Index (BMI) 25.2 Intake and Output for Last 24 Hours Intake Total 1600 / 1600 1439 / 1439 Output Total 475 / 475 Balance 1600 / 1600 964 / 964 Laboratory Tests Past 24 Hrs WBC 8.0 8.8 RBC 4.56 L 4.03 L Hgb 16.2 14.4 Hct 46.1 41.3 MCV 101.1 H 102.5 H MCH 35.5 H 35.7 H WBC RBC Hgb Hct MCV MCH MCHC RDW RDW Differential Plt Count MPV Immature Gran % (Auto) Discharge Diet: Light diet - advance as tolerated Discharge Activity: Return to Normal Activity, May Not Drive - for 2-3 days or while taking narcotic pain medicataions., - - Do not drive, work heavy equipment or sign legal documents for 24 hours. May shower in (days): 1 - with the bandage in place. Additional Activity Instructions:: Pain medication may cause nausea. You should typically eat light foods as you take your pain medications. Pain medication may also cause constipation. If this is a problem for you, please discuss with your doctor. Call your doctor if your incision/area has: Continuous Slow Oozing, Sudden Increased Bleeding, Increased Pain/ Swelling, Increased Redness, Foul Smelling Discharge, Fever of 101 or Higher Call your doctor if you observe: Fever of 101 or Higher Suture Line Care: Avoid Pulling/Pushing, Avoid Pinching/Bending Additional Dressing/Incision Instructions:: Leave operative bandaids on for 2 days. When you remove dressing, leave Steri-Strips on until your follow-up appointment, or until the Steri-Strips fall off on their own. Home Medications: Medications to take at Discharge aspirin 81 mg tablet,delayed release 162 mg PO QDAY 02/17/18 calcium carbonate 600 mg calcium (1,500 mg) tablet 600 mg PO QDAY tab 02/17/18 carvedilol 12.5 mg tablet 12.5 mg PO BID 02/17/18 pravastatin 40 mg tablet 40 mg PO QDAY 02/17/18 multivitamin tablet 1 tab PO QDAY 02/20/18 nitroglycerin 0.4 mg sublingual tablet 0.4 mg SUBLINGUAL Q5M PRN #90 tab 02/20/18 Oxycodone HCl/Acetaminophen [Percocet 5/325] 1 - 2 tablet PO Q4H PRN PRN 7 Days #30 tablet 09/18/18 Following Prescrptions Were Given to Patient: Oxycodone HCl/Acetaminophen [Percocet 5/325] 1 - 2 tablet PO Q4H PRN PRN 7 Days #30 tablet PRN Reason: Pain Primary Care Physician: Michael Simms MD [Primary Care Provider] - Please Follow Up With: Teddy Eli MD When: Please call to schedule 2 week follow up appointment. [phone] Medical Necessity - Tobacco Use Smoking Status: Former smoker Meaningful Use Info Meaningful Use Diagnoses (Choose all that apply): None applicable 09/20/18 1009 <Electronically signed by Teddy Eli MD> Date Teddy Eli MD Cosigner Signature (if applicable): Date CC: Michael Simms MD; Teddy Eli MD Signed CBC W/DIFF, AUTOMATED Collected: 09/19/2018 Status: F Source: [place] 6:28 AM [facility] REPOSITORY TYPE CODE TESTS RESULT OUT OF RANGE REFERENCE UNITS LAB L100.1000 4.4-11.0 K/mm3 Normal WBC 8.8 LAB L100.1200 4.6-6.2 M/mm3 Low RBC 4.03 LAB L100.1300 13.0-16.5 g/dl Normal HGB 14.4 LAB L100.1400 40-54 % Normal HCT 41.3 LAB L100.1500 80-94 fL High MCV 102.5 LAB L100.1600 27.0-32.0 pg High MCH 35.7 LAB L100.1700 32-36 g/gl Normal MCHC 34.9 LAB L100.1810 11.6-14.6 % Normal RDW CV 12.0 LAB L100.1820 35.1-43.9 fl High RDW SD 44.3 LAB L100.1900 150-450 K/mm3 Normal PLT 187 LAB L100.2000 6.2-12.0 fl Normal MPV 9.7 LAB L100.2100 47-70 % Normal NEUT% 65.0 LAB L100.2200 19-41 % Normal LY% 25.8 LAB L100.2300 0-10 % Normal MONO% 8.3 LAB L100.2400 0-5 % Normal EO% 0.5 LAB L100.2500 0-1 % Normal BASO% 0.2 LAB L100.2550 0.0-0.9 % Normal IM GRAN % 0.200 Result Comment: IG% - Immature Granulocytes (promyelocytes, myelocytes and metamyelocytes) > 1% indicates that a LEFT SHIFT is Present. LAB L100.2620 2.0-7.7 X10 3/uL Normal Absolute Neut 5.7 LAB L100.2720 0.83-4.51 X10 3/ul Normal Absolute Lymph 2.28 Performed By: #### L100.0100 #### [facility] [address] [place], [address] COMPREHENSIVE METABOLIC Collected: 09/19/2018 Status: F Source: [facility] 6:28 AM [facility] REPOSIT[facility] TYPE CODE TESTS RESULT OUT OF RANGE REFERENCE UNITS LAB L501.0100 74-106 mg/dL High GLU 201 Result Comment: Glucose result greater than or equal to 200 mg/dL suggests DIABETES MELLITUS per A.D.A. criteria. Please note revised GLUCOSE reference range effective 2017. LAB L501.1000 7-18 mg/dL Normal BUN 16 LAB L501.1100 0.70-1.30 mg/dL Normal CREAT,SERUM 1.12 Result Comment: The validity of the calculated GFR AND GFRAA in patients over 70 years has not been determined. Clinical correlation is essential. LAB L501.1110 >60 mL/min Normal EST GFR 68 Result Comment: Non- GFR Calc LAB L501.1115 >60 mL/min Normal EST GFR - AA 82 Result Comment: GFR Calc LAB L501.1255 ml/min Normal Estimated CRCL 58.84 LAB L501.1300 10-20 RATIO Normal BUN/CRE 14.3 LAB L501.1500 6.4-8. g/dL Low 2 T PROT 6.2 LAB L501.1800 3.2-5. g/dL Low 0 ALB 2.9 LAB L501.1950 2.2-4. g/dL Normal 2 GLOB 3.3 LAB L501.2000 0.9-2. RATIO Normal 4 A/G 0.9 LAB L501.2200 8.5-10 mg/dL Low .1 CA 8.2 LAB L501.4100 15-37 U/L High AST 98 LAB L501.4305 45-117 U/L Normal ALK P 74 LAB L501.4405 16-61 U/L High ALT 108 LAB L501.4600 0.20-1 mg/dL High .00 T BILI 1.20 LAB L501.5300 136-14 mmol/L Normal 5 NA 138 LAB L501.5600 3.5-5. mmol/L Normal 1 K 3.9 LAB L501.5900 98-107 mmol/L Normal CL 103 LAB L501.6100 21.0-3 mmol/L Normal 2.0 CO2 27.0 LAB L501.6200 5-15 Normal GAP 8 Performed By: #### L500.4050 #### [facility] [address] [facility] [place], [address] OPERATIVE REPORT Observed: 09/18/2018 Status: F Source: [place] 5:38 PM [facility] REPOSITORY [facility] Medical Records Department [address] [place] [address] Operative Report 09/18/18 1737 MR#: [id number] Acct: [id number] Name: FRANK MUSTAFA Rep #: [id number] : 1940 77 From: Teddy Eli MD PCP: Michael Simms MD Status: REG [facility] Y Location: [place] [address] Problem List (1) Acute cholecystitis Status: Acute Report of Operation Date of Procedure: 09/18/18 Pre-Operative Diagnosis: Cholecystitis Post-Operative Diagnosis: Acute cholecystitis Surgery/Procedure Performed:: Laparoscopic cholecystectomy with cholangiogram Description of Surgical Findings:: Patient had a very inflamed gallbladder. Intraoperative cholangiogram showed good flow into the duodenum with no filling defects. Specimen's removed: Gallbladder and contents Description of Procedure: After obtaining informed consent patient was brought back to the operating room. General anesthesia was induced. The abdomen was prepped and draped in usual sterile fashion. A small midline incision was made superior to the umbilicus and deepened to the level of fascia. The fascia was elevated and incised. Next the peritoneum was elevated and incised in the same fashion. Finger sweep was performed and the Castañeda trocar was placed into the abdomen. The balloon was inflated. The abdomen was inflated to 15 mmHg. Next a camera was introduced into the abdomen and the abdomen was inspected. Next under direct visualization three 5-mm ports were placed one subxiphoid and 2 subcostal. The gallbladder was very inflamed. The gallbladder was punctured with an aspiration needle and the contents were aspirated. Next the gallbladder was elevated and retracted toward the right shoulder. The peritoneum was stripped from the gallbladder. The infundibulum was located and retracted laterally. Next the triangle of Calot was dissected and the cystic duct and cystic artery were identified. Cholangiograms were performed. The Cain catheter was used to clamp across the infundibulum and the needle was inserted into the gallbladder. Under fluoroscopy contrast was instilled into the gallbladder and the common duct, cystic duct as well as proximal hepatic ducts were identified. There was good filling of the duodenum. There were no filling defects noted in the common bile duct. The clamp was removed as well as the needle and the infundibulum was grasped once more. Three hemolock clips were placed across the cystic duct. The cystic duct was then divided leaving 2 clips on the stump. The cystic artery was clipped and divided in the same fashion. The hook cautery was then used to take the gallbladder off of the gallbladder bed. Hemostasis was obtained. Gallbladder fossa was irrigated and no active bleeding or bile leakage was noted. Next the camera switched to a 5 mm camera and introduced in the subxiphoid port. An Endopouch bag was placed through the umbilical port and the gallbladder was placed into it. The gallbladder was then removed through the umbilical incision. The camera was then reinserted through the umbilical port. The gallbladder fossa was inspected once more and noted to be hemostatic with no leaking bile. The abdomen was suctioned dry the 5 mm ports were removed under direct visualization. The umbilical port was then removed and the air was removed from the abdomen. Next using an 0 Vicryl suture the umbilical fascia was closed in a [id number] fashion. The umbilical port site was irrigated local anesthetic was administered to all the incisions. All the incisions were closed subcuticular 4-0 Monocryl sutures followed by Steri-Strips and dressings. The patient was awoken and taken to PACU in stable condition. - Admit VTE Documentation VTE Mechan Device Prophylaxis: SCD's 09/18/181737 <Electronically signed by Teddy Eli MD> Date Teddy Eli MD CC: Michael Simms MD; Teddy Eli MD Signed DISCHARGE INSTRUCTION Observed: 09/18/2018 Status: F Source: [place] 5:37 PM [facility] REPOSITORY [facility] Medical Records Department [address] [place] [address] Instructions for Home/Discharge Instructions 09/18/181735 MR#: [id number] Acct: [id number] Name: FRANK MUSTAFA Rep #: [id number] : 1940 77 From: Teddy Eli MD PCP: Michael Simms MD Status: [facility] Discharge Diet: Light diet - advance as tolerated Discharge Activity: Return to Normal Activity, May Not Drive - for 2-3 days or while taking narcotic pain medicataions., - - Do not drive, work heavy equipment or sign legal documents for 24 hours. May shower in (days): 1 - with the bandage in place. Lifting Restrictions: 20 lbs for 2 weeks Additional Activity Instructions:: Pain medication may cause nausea. You should typically eat light foods as you take your pain medications. Pain medication may also cause constipation. If this is a problem for you, please discuss with your doctor. Call your doctor if your incision/area has: Continuous Slow Oozing, Sudden Increased Bleeding, Increased Pain/ Swelling, Increased Redness, Foul Smelling Discharge, Fever of 101 or Higher Call your doctor if you observe: Fever of 101 or Higher Suture Line Care: Avoid Pulling/Pushing, Avoid Pinching/Bending Additional Dressing/Incision Instructions:: Leave operative bandaids on for 2 days. When you remove dressing, leave Steri-Strips on until your follow-up appointment, or until the Steri-Strips fall off on their own. Allergies/Adverse Reactions: Allergies No Known Allergies Allergy (Verified 09/17/18 12:07) Medications to take at Discharge aspirin 81 mg tablet,delayed release 162 mg PO QDAY 02/17/18 calcium carbonate 600 mg calcium (1,500 mg) tablet 600 mg PO QDAY tab 02/17/18 carvedilol 12.5 mg tablet 12.5 mg PO BID 02/17/18 pravastatin 40 mg tablet 40 mg PO QDAY 02/17/18 multivitamin tablet 1 tab PO QDAY 02/20/18 nitroglycerin 0.4 mg sublingual tablet 0.4 mg SUBLINGUAL Q5M PRN #90 tab 02/20/18 Oxycodone HCl/Acetaminophen [Percocet 5/325] 1 - 2 tablet PO Q4H PRN PRN 7 Days #30 tablet 09/18/18 The following prescriptions were given: Oxycodone HCl/Acetaminophen [Percocet 5/325] 1 - 2 tablet PO Q4H PRN PRN 7 Days #30 tablet PRN Reason: Pain Primary Care Physician: Michael Simms MD [Primary Care Provider] - Test Results: Test results from this visit will be discussed in further detail at your follow-up appointment, if applicable. Please Follow Up With: Teddy Eli MD When: Please call to schedule 2 week follow up appointment. [phone] 09/18/18 1737 <Electronically signed by Teddy Eli MD> Date Teddy Eli MD CC: Michael Simms MD GALLBLADDER Observed: 09/18/2018 Status: F Source: [place] 2:15 PM [facility] REPOSITORY Patient: FRANK MUSTAFA : 1940 (77/M) Acct Num: [id number] Phys: Teddy Eli MD Unit Num: [id number] Loc: MS2 [id number] Specimen: [id number] Received: 09/21/18939 Spec Type: GALLBLADDE TISSUES 1 TISSUES: Gallbladder, NOS COMMENT Case has been reviewed in consultation with Dr. Kulkarni who concurs with the above diagnosis. IDC:AM GROSS DESCRIPTION Received is one container labeled with the patient's name and designated gallbladder. The specimen consists of a gallbladder measuring 9.5 cm in length and up to 4 cm in diameter. The external surface is pink-colbert, smooth and glistening for the most part. Focally it is granular, hemorrhagic and contains cautery artifact. The gallbladder contains turbid, cloudy, reddish-brown bile and multiple black, irregular stones measuring in aggregate 3.5 x 2.5 x 1 cm and 0.3 to 1.2 cm in greatest dimension. The mucosa is bile-stained and without any mass lesions. The gallbladder wall measures up to 0.5 cm in thickness. Surveyor Instrument Assistant sections from the gallbladder and the cystic duct are submitted in one cassette. / : 09/21/18 More sections from the gallbladder wall are submitted in three more cassettes, 2-4. / : 09/22/18 TC:2 CPT: 93986 HEADER OPERATION: Laparoscopic cholecystectomy with intraoperative cholangiogram PRE-OP DIAGNOSIS: Acute cholecystitis TISSUE SUBMITTED: Gallbladder MICROSCOPIC DESCRIPTION Slides are reviewed. MICROSCOPIC DIAGNOSIS Gallbladder: Acute and chronic ulcerated cholecystitis and cholelithiasis. Focal epithelial dysplastic changes. : 09/22/18 Signed Bo Hernandez MD 09/23/18 <signature on file> Performed By: #### PGALL #### [facility] [address] [place] [address]. [place], [place], [address] CBC-COMPLETE BLOOD CNT Collected: 09/18/2018 Status: F Source: [place] NO DIFF 1:00 PM [facility] REPOSITORY TYPE CODE TESTS RESULT OUT OF RANGE REFERENCE UNITS LAB L100.1000 4.4-11.0 K/mm3 Normal WBC 8.0 LAB L100.1200 4.6-6.2 M/mm3 Low RBC 4.56 LAB L100.1300 13.0-16.5 g/dl Normal HGB 16.2 LAB L100.1400 40-54 % Normal HCT 46.1 LAB L100.1500 80-94 fL High MCV 101.1 LAB L100.1600 27.0-32.0 pg High MCH 35.5 LAB L100.1700 32-36 g/gl Normal MCHC 35.1 LAB L100.1810 11.6-14.6 % Normal RDW CV 12.2 LAB L100.1820 35.1-43.9 fl High RDW SD 44.7 LAB L100.1900 150-450 K/mm3 Normal PLT 234 LAB L100.2000 6.2-12.0 fl Normal MPV 9.5 Performed By: #### L100.0500 #### [facility] [address] [facility] [place], [address] BASIC METABOLIC Collected: 09/18/2018 Status: F Source: [place] PROFILE (BMP) 1:00 PM [facility] REPOSITORY TYPE CODE TESTS RESULT OUT OF RANGE REFERENCE UNITS LAB L501.0100 74-106 mg/dL High GLU 142 Result Comment: Fasting Glucose result greater than or equal to 126 mg/dL suggests DIABETES MELLITUS per A.D.A. criteria. Please note revised GLUCOSE reference range effective 2017. LAB L501.1000 7-18 mg/dL High BUN 19 LAB L501.1100 0.70-1.30 mg/dL Normal CREAT,SERUM 1.22 Result Comment: The validity of the calculated GFR AND GFRAA in patients over 70 years has not been determined. Clinical correlation is essential. LAB L501.1110 >60 mL/min Normal EST GFR 61 Result Comment: Non- GFR Calc LAB L501.1115 >60 mL/min Normal EST GFR - AA 74 Result Comment: GFR Calc LAB L501.1255 ml/min Normal Estimated CRCL 54.02 LAB L501.1300 10-20 RATIO Normal BUN/CRE 15.6 LAB L501.2200 8.5-10 mg/dL Normal .1 CA 9.1 LAB L501.5300 136-14 mmol/L Normal 5 NA 141 LAB L501.5600 3.5-5. mmol/L Normal 1 K 4.0 LAB L501.5900 98-107 mmol/L Normal CL 105 LAB L501.6100 21.0-3 mmol/L Normal 2.0 CO2 29.0 LAB L501.6200 5-15 Normal GAP 7 Performed By: #### L500.2500 #### [facility] [address] [place], [address] CHOLANGIOGRAM/ O Observed: 09/18/2018 Status: F Source: [place] R,INITIAL 3:38 AM [facility] REPOSITORY [facility] Imaging Services [address] [place] [address] Cholangiogram/ O R,Initial MR#: [id number] Acct: [id number] Name: FRANK MUSTAFA Rep #: [id number] : 1940 M 77 From: Axel Cantrell MD PCP: Michael Simms MD Status: ADM JOSE LUIS Study: Cholangiogram/ O R,Initial Date of Exam: 09/18/18 Exam# [id number] Ordering Dr: Teddy Eli MD HISTORY: Gallstones. COMPARISON: None FINDINGS: Total Fluoroscopic Time: 61 seconds with total radiation dose 26.2 mgy # of Fluroscopic Images: 121 Multiple spot intraoperative films are presented for evaluation. Gallbladder intraluminal filling defects related to gallstones. No filling defects are identified in the common bile duct. There is no extrahepatic biliary ductal dilatation. There is free flow of contrast into the duodenum. RAD/Cholangiogram/ O R,Initial IMPRESSION: 1. Negative exam. No biliary dilatation or retained common duct stones. 2. Please see surgical report for competence of details at 0026 Reported and signed by: Axel Cantrell MD Electronically Signed: Axel Cantrell, at 0:24 EST Tel , Service support , CC: Michael Simms MD; Teddy Eli MD [place]: Signed SURGERY VISIT REPORT Observed: 09/14/2018 Status: F Source: [place] 9:52 AM [facility] REPOSITORY [facility] [address] [place] [address] OFFICE VISIT Date of Service: 09/14/18 MR#: [id number] Acct: [id number] Name: FRANK MUSTAFA Rep #: [id number] : 1940 Provider: Teddy Eli MD Age/Sex: 77/M Location: [facility] Status: Signed Intake Vital Signs09/14/18 Height 5 ft 10 in 09/14/18 Weight: 178 lb 8 oz 09/14/18 Body Mass Index (BMI) 25.6 09/14/18 Blood Pressure 147/79 H Intake Visit Reasons: CHOLELITHIASIS, OFFICE TO FAX INFO Chief Complaint: gallstones, abd pain Circular Saw Operator Required: No Is patient in pain?: No Allergies No Known Allergies Allergy (Verified 09/14/18 09:19) Medications aspirin 81 mg tablet,delayed release 81 mg PO QDAY 02/17/18 [History Confirmed 09/14/18] calcium carbonate 600 mg calcium (1,500 mg) tablet 600 mg PO QDAY tab 02/17/18 [History Confirmed 09/14/18] carvedilol 12.5 mg tablet 12.5 mg PO BID 02/17/18 [History Confirmed 09/14/18] pravastatin 40 mg tablet 40 mg PO QDAY 02/17/18 [History Confirmed 09/14/18] multivitamin tablet 1 tab PO QDAY 02/20/18 [History Confirmed 09/14/18] nitroglycerin 0.4 mg sublingual tablet 0.4 mg SUBLINGUAL Q5M PRN #90 tab 02/20/18 [Rx Confirmed 09/14/18] PFS Medical History Chest pain (Acute) Abnormal stress test (Acute) Atherosclerosis of coronary artery bypass graft without angina pectoris (Chronic) History of third degree heart block (Acute) RBBB (right bundle branch block) (Acute) 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) Hyperlipidemia (Chronic) Hypertension (Chronic) Osteoarthritis (Acute) Paresthesia (Acute) Surgical History Aortocoronary bypass status (Chronic 04/05/14) Presence of stent in coronary artery (Chronic 05/04/14) Postsurgical percutaneous transluminal coronary angioplasty (PTCA) status (Chronic) History of local excision of skin lesion (Resolved) Hx of appendectomy (Resolved) Family History Brother COPD (chronic obstructive pulmonary disease) Sister History of DVT (deep vein thrombosis) Brother COPD (chronic obstructive pulmonary disease) Father COPD (chronic obstructive pulmonary disease) Social History Smoking Status: Former smoker alcohol intake: never substance use type: does not use HPI HPI HPI: FRANK MUSTAFA, is a 77 M who presents to the office today for right upper quadrant pain. The patient says that for the last 2 weeks has been having right upper quadrant pain that radiates to the epigastric region. He has had some nausea and vomiting. He had an ultrasound done on September 04 which showed thickening of the gallbladder as well as stones and sludge in the gallbladder. The patient has been antibiotics since that he says he is feeling better. He has no pain today. The patient did not note any radiation of symptoms. He is not having any nausea or vomiting. He says he has never had problems before the last 2 weeks. ROS General General: No weight change, appetite, fatigue, colon cancer, breast cancer or weakness HEENT HEENT: No difficulty swallowing, eye injury, eye surgery, swollen glands or hoarseness Endo Endocrine: No thyroid disease, diabetes mellitus, thyroid cancer, Hair loss, heat intolerance or cold intolerance Musc Musculoskeletal: Yes back problems and arthritis; no rheumatoid arthritis, gout or joint pain Cardio Cardiovascular: Yes pacemaker, heart disease, heart attack and heart stent; no atrial fibrillation, high blood pressure, palpitations, shortness of breat with exertion or chest pain Resp Respiratory: No shortness of breath, No sleep apnea, No cough, No COPD, No asthma, No emphysema, No wheezing Gastro Gastrointestinal: Yes abdominal pain, No nausea or vomiting, No diarrhea, No constipation, No blood in stool, No acid reflux, No hemorrhoids, No ulcers, Yes gallbladder problem, No black,tarry stools Allan Hematologic: No blood thinners, No blood disorders, No bleeding, No anemia, No blood clots Neuro Neurologic: No weakness Exam Const General: cooperative Orientation: alert, oriented x3 HENMT Head: normal to inspection Ears: hearing grossly normal bilaterally Eyes General: appearance normal, both eyes and all related structures Visual Cam: normal visual cam by confrontation Neck Neck: normal visual inspection Chest Chest palpation AND inspection: pacemaker Resp Effort AND Inspection: normal respiratory effort Auscultation: clear to auscultation bilaterally Cardio Rate: regular rate Rhythm: regular rhythm GI Inspection: non-distended Palpation: soft, nontender Musc Cervical Spine: normal cervical lordosis, cervical ROM normal Skin General: no rashes or lesions noted Neuro General: alert, oriented x3 Cranial Nerves: CN's II-XI intact bilaterally Cognition: normal cognition Extrem General: normal to inspection, full ROM Psych Appearance: grossly normal Affect: normal affect Assessment AND Plan 1. Acute cholecystitis K81.0 Plan 1. Patient appear to have acute cholecystitis at the end of last month. That time the patient did have mild elevation of his bilirubin as well as an elevated white count. The patient has been on antibiotics since and he is not having any pain or symptoms at this time. 2. I do recommend laparoscopic cholecystectomy to the patient. I discussed the procedure in detail with the patient. I discussed the risks, benefits, and alternatives of the procedure. I discussed the risks including but not limited to bleeding, infection, injury to surrounding organs such as the liver, bile duct, bowels. I did discuss the possibility of having to convert to an open procedure as well as the possibility that if any injuries occurred this may necessitate further surgery at a tertiary care center. 3. I will check LFTs and a CBC the day of the procedure. 2. Atherosclerosis of coronary artery bypass graft of [place] heart without angina pectoris I25.810 Plan 1. The patient has severe coronary artery disease. Patient had an echo recently and sees Dr. Cabral. I will obtain cardiac clearance. The tire builder operator has verbally cleared the patient for surgery. Teddy Eli MD Pager: [facility] [address] [place] [address], [address] [place] [address] Office: Coding Level of Care Code Off vis,new,level 4 Diagnoses Acute cholecystitis K81.0 Atherosclerosis of coronary artery bypass graft of [place] heart without angina pectoris I25.810 [place] vs. transplanted heart: [place] heart Time Spent (min) 45 09/14/18 6752 <Electronically signed by Teddy Eli MD> Date Teddy Eli MD Cosigner Signature: Date (if applicable) CC: Michael Simms MD PACEMAKER CHECK Observed: 09/10/2018 Status: F Source: [place] 5:25 PM [facility] REPOSITORY [facility] [address] [place] [address] Pacemaker Check Date of Service: 09/10/18 1301 MR#: [id number] Acct: [id number] Name: FRANK MUSTAFA Rep #: [id number] : 1940 From: Chacha Mejia Age/Sex: 77/M [place] [facility] [place]: Signed Billing Codes PM Device Codes: PM Dev Prog Eval, Dual 09/10/18 1303 <Electronically signed by Chacha Mejia > Date Chacha Mejia 09/10/18 1725<Electronically signed by Gregg Cabral MD> Cosigner Signature: Date (if applicable) Gregg Cabral MD CC: US ABDOMEN COMPLETE Observed: 09/04/2018 Status: F Source: [place] 2:03 PM [facility] RE[facility] ORIGINAL US ABDOMEN COMPLETE CLINICAL STATEMENT: epigastric pain x2 days. RIGHT upper quadrant pain last night, no family history of AAA, appendectomy 50 years ago COMPARISON: None FINDINGS: The liver is diffusely increased in echogenicity in comparison to the adjacent kidney with decreased visualization of periportal echoes, suggesting hepatic steatosis. There is no intra or extrahepatic b ile duct dilatation. The common duct is 4 mm at the ramona hepatis. Sludge and stones are noted within the gallbladder there is gallbladder wall thickening measuring 4 mm. The visualized pancreas is unremarkable although its tail portion is not well seen. The spleen is normal in size and echogenicity. No ascites. The visualized kidneys show no pelvicaliectasis. Visualized IVC and aorta are not abnormally dilated. IMPRESSION: 1. Findings of cholelithiasis with acute cholecystitis. 2. Hepatic steatosis. Interpreted By: Olimpia Rodriguez MD Preliminary Report By: Olimpia Rodriguez MD Electronically Signed By: Olimpia Rodriguez MD Dictated Date: 09/04/2018 3:07:02 PM Prelim Date: 09/04/2018 3:07:02 PM Sign Date: 09/04/2018 3:46:50 PM CBC Collected: 09/04/2018 Status: C Source: [facility] 12:20 [facility] REPOSITORY TYPE CODE TESTS RESULT OUT OF REFERENCE UNITS RANGE LAB WBC(LOINC) 4.60-10.80 10 3/mcL High WBC 11.50 LAB RBCCT(LOINC 4.04-6.13 10 6/mcL ) RBC 4.89 LAB HGB(LOINC) 14.0-18.0 G/dL Hgb 17.4 LAB HCT(LOINC) 42.0-52.0 % Hct 50.0 LAB MCV(LOINC) 80.0-94.0 fL High MCV 102.3 LAB MCH(LOINC) 27.0-31.2 pg High MCH 35.7 LAB MCHC(LOINC) 31.8-35.4 G/dL MCHC 34.9 LAB RDW(LOINC) 11.5-14.5 % RDW 12.3 LAB PLT(LOINC) 130-400 10 3/mcL Platelet 185 LAB MPV(LOINC) 7.4-10.4 fL MPV 8.2 Performed By: #### CBC, ADIFF, MORPH, ANEU #### [place] [place], [place] [address] #### CMP, GFR #### [address] [address] CMP Collected: 09/04/2018 Status: F Source: [facility] 12:20 PM [facility] REPOSITORY TYPE CODE TESTS RESULT OUT OF REFERENCE UNITS RANGE LAB GLU(LOINC) 83-110 mg/dL Glucose High Level 196 LAB NA(LOINC) 136-145 mmol/L Low Sodium Level 135 LAB K(LOINC) 3.5-5.1 mmol/L Potassium Level 4.1 LAB CL(LOINC) 98-107 mmol/L Chloride 99 LAB CO2(LOINC) 23-31 mmol/L CO2 High 32 LAB EBAL(LOINC mEq/L ) Electrolyte Balance 4.0 LAB BUN(LOINC) 7-18 mg/dL BUN 14 LAB CRE(LOINC) 0.70-1.30 mg/dL Creatinine Lvl (s) 1.23 LAB BC(LOINC) 7-27 ratio BUN/Creatinine 11 Ratio LAB CA(LOINC) 8.4-10.2 mg/dL Calcium Lvl 9.0 LAB PROT(LOINC 6.4-8.2 G/dL ) Total Protein 7.4 LAB ALB(LOINC) 3.4-4.8 G/dL Albumin Level 4.0 LAB GLB(LOINC) G/dL Globulin 3.4 LAB AG(LOINC) 1.1-2.5 ratio A/G Ratio 1.2 LAB BILT(LOINC 0.2-1.0 mg/dL ) Bili Total High 1.8 LAB AP(LOINC) 40-135 U/L Alk Phos 59 LAB AST(LOINC) 10-40 U/L AST/SGOT 17 LAB ALT(LOINC) 10-35 U/L ALT/SGPT High 38 Performed By: #### CBC, ADIFF, MORPH, ANEU #### [address] [address] #### CMP, GFR #### [address] [address] .GFR Collected: 09/04/2018 Status: F Source: [facility] 12:20 PM [facility] REPOSIT[facility] TYPE CODE TESTS RESULT OUT OF REFERENCE UNITS RANGE LAB GFRAA(LOINC ml/min/1.73 ) sqm GFR 70 [place] Result Comment: GFR Population mean for , Non- Americans Ages 20-29 = 116 mL/min/1.73 sq.m. Ages 30-39 = 107 mL/min/1.73 sq.m. Ages 40-49 = 99 mL/min/1.73 sq.m. Ages 50-59 = 93 mL/min/1.73 sq.m. Ages 60-69 = 85 mL/min/1.73 sq.m. Ages 70+ = 75 mL/min/1.73 sq.m. Chronic Kidney Disease: Less than 60 mL/min/1.73 square meters End Stage Renal Disease: Less than 15 mL/min/1.73 square meters LAB GFRNO(LOINC) ml/min/1.73sqm GFR Non- 57 Result Comment: GFR Population mean for , Non- Americans Ages 20-29 = 116 mL/min/1.73 sq.m. Ages 30-39 = 107 mL/min/1.73 sq.m. Ages 40-49 = 99 mL/min/1.73 sq.m. Ages 50-59 = 93 mL/min/1.73 sq.m. Ages 60-69 = 85 mL/min/1.73 sq.m. Ages 70+ = 75 mL/min/1.73 sq.m. Chronic Kidney Disease: Less than 60 mL/min/1.73 square meters End Stage Renal Disease: Less than 15 mL/min/1.73 square meters Performed By: #### CBC, ADIFF, MORPH, ANEU #### [address] [address] #### CMP, GFR #### [place] [address] .AUTO DIFF Collected: 09/04/2018 Status: F Source: [facility] 12:20 PM [facility] REPOSITORY TYPE CODE TESTS RESULT OUT OF REFERENCE UNITS RANGE LAB TIEN(LOINC) 37.0-80.0 % Neutrophil % 49.6 LAB LYM(LOINC) 10.0-50.0 % Lymphocyte % 34.4 LAB MON(LOINC) 1.7-13.0 % Monocyte High % 13.2 LAB EO(LOINC) 0.0-7.0 % Eosinophil % 2.0 LAB BAS(LOINC) 0.0-2.5 % Basophil % 0.8 LAB ABLYM(LOIN 0.77-3.85 10 3/mcL C) High Lymphocyte, 3.90 Absolute LAB LORE(LOINC 0.15-1.00 10 3/mcL ) High Monocyte, 1.50 Absolute LAB AEOS(LOINC 0.00-0.40 10 3/mcL ) Eosinophil, 0.20 Absolute LAB ABAS(LOINC 0.00-0.19 10 3/mcL ) Basophil, 0.10 Absolute Performed By: #### CBC, ADIFF, MORPH, ANEU #### [address] [address] #### CMP, GFR #### [address] [address] .MORPH Collected: 09/04/2018 Status: F Source: [facility] 12:20 PM [facility] REPOSITORY TYPE CODE TESTS RESULT OUT OF REFERENCE UNITS RANGE LAB PLTE(LOINC ) Platelet Estimate Normal LAB MACYT(LOIN C) Macrocytosis Slight Performed By: #### CBC, ADIFF, MORPH, ANEU #### [address] [address] #### CMP, GFR #### [address] [address] .NEUABS Collected: 09/04/2018 Status: F Source: [facility] 12:20 PM [facility] REPOSITORY TYPE CODE TESTS RESULT OUT OF REFERENCE UNITS RANGE LAB ANEU(LOINC) 2.85-6.16 10 3/mcL Neutrophil, 5.70 Absolute Performed By: #### CBC, ADIFF, MORPH, ANEU #### [address] [address] #### CMP, GFR #### [address] [address] PROTHROMBIN TIME W/INR Collected: 03/16/2018 Status: F Source: [place] 9:00 AM [facility] REPOSITORY TYPE CODE TESTS RESULT OUT OF RANGE REFERENCE UNITS LAB L300.4150 11.7-14.9 SECONDS Normal PROTIME 13.2 LAB L300.4200 Normal INR 1.0 Performed By: #### L300.3900, L300.4310, L100.0500 #### [facility] [address] [place], [address] PARTIAL THROMBOPLAST Collected: 03/16/2018 Status: F Source: [place] TIME 9:00 AM [facility] REPOSITORY TYPE CODE TESTS RESULT OUT OF RANGE REFERENCE UNITS LAB L300.4310 24.1-36.2 Seconds Normal PTT 25.6 Performed By: #### L300.3900, L300.4310, L100.0500 #### [facility] [address] [place], [place], [address] CBC-COMPLETE BLOOD CNT Collected: 03/16/2018 Status: F Source: [place] NO DIFF 9:00 AM [facility] REPOSITORY TYPE CODE TESTS RESULT OUT OF RANGE REFERENCE UNITS LAB L100.1000 4.4-11.0 K/mm3 Normal WBC 6.7 LAB L100.1200 4.6-6.2 M/mm3 Normal RBC 5.09 LAB L100.1300 13.0-16.5 g/dl High alert HGB 18.6 Result Comment: CRITICAL VALUE VERIFIED. CALLED TO SANJUANA AT [facility] 03/16/18 0942 Bela Chan. RESULTS READ BACK BY SAME . LAB L100.1400 40-54 % Normal HCT 51.2 LAB L100.1500 80-94 fL High MCV 100.6 LAB L100.1600 27.0-32.0 pg High MCH 36.5 LAB L100.1700 32-36 g/gl High MCHC 36.3 LAB L100.1810 11.6-14.6 % Normal RDW CV 13.0 LAB L100.1820 35.1-43.9 fl High RDW SD 48.2 LAB L100.1900 150-450 K/mm3 Low PLT 135 LAB L100.2000 6.2-12.0 fl Normal MPV 9.8 Performed By: #### L300.3900, L300.4310, L100.0500 #### [facility] [address] [place], [address] BASIC METABOLIC Collected: 03/16/2018 Status: F Source: [place] PROFILE (BMP) 9:00 AM [facility] REPOSITORY TYPE CODE TESTS RESULT OUT OF RANGE REFERENCE UNITS LAB L501.0100 74-106 mg/dL High GLU 164 Result Comment: Fasting Glucose result greater than or equal to 126 mg/dL suggests DIABETES MELLITUS per A.D.A. criteria. Please note revised GLUCOSE reference range effective 2017. LAB L501.1000 7-18 mg/dL Normal BUN 15 LAB L501.1100 0.70-1.30 mg/dL Normal CREAT,SERUM 1.12 Result Comment: The validity of the calculated GFR AND GFRAA in patients over 70 years has not been determined. Clinical correlation is essential. LAB L501.1110 >60 mL/min Normal EST GFR 68 Result Comment: Non- GFR Calc LAB L501.1115 >60 mL/min Normal EST GFR - AA 82 Result Comment: GFR Calc LAB L501.1300 10-20 RATIO Normal BUN/CRE 13.4 LAB L501.2200 8.5-10.1 mg/dL CA Normal 9.4 LAB L501.5300 136-145 mmol/L NA Normal 138 LAB L501.5600 3.5-5.1 mmol/L K Normal 4.4 LAB L501.5900 98-107 mmol/L CL Normal 104 LAB L501.6100 21.0-32.0 mmol/L Normal CO2 29.0 LAB L501.6200 5-15 Normal GAP 5 Performed By: #### L500.2500 #### [facility] [address] [facility] [place], [address] STRESS REPORT Observed: 03/05/2018 Status: F Source: [place] 7:04 PM [facility] REPOSITORY [facility] Cardiovascular Services [address] [place] [address] MR#: [id number] Acct: [id number] Name: FRANK MUSTAFA Rep #: [id number] : 1940 77 From: Gregg Cabral MD Primary Care: Michael Simms MD Status: REG CLI Ordering Dr: Lianne: Shankar Agarwal Stress Test Report Date: 03/05/2018 Procedure: Pharmacologic stress nuclear imaging study Indications: Chest pain; CAD; PCI Consent: Per the patient Procedure: The patient underwent pharmacologic (Regadenoson) evaluation with a peak heart rate of 97 beats per minute (66 predicted maximal heart rate) and a peak blood pressure of 196/98 mmHg. The baseline ECG demonstrated sinus rhythm; right bundle branch block pattern. The peak pharmacologic ECG demonstrated no obvious ECG changes. There were no cardiac dysrhythmias pretest, during pharmacologic infusion, or recovery. There was no complaint of chest discomfort during pharmacologic infusion or recovery. The examination was discontinued secondary to completion of protocol. Impression: 1. Pharmacologic (Regadenoson) evaluation 2. Peak pharmacologic ECG with no obvious ECG changes. 3. No cardiac dysrhythmias pretest, during pharmacologic infusion, or recovery 4. Nuclear images pending Myocardial perfusion imaging study: Technique: The patient was injected with 10.8 millicuries of technetium 99m Cardiolite and subsequently rest SPECT Cardiolite nuclear imaging was obtained in the horizontal long, vertical long, and short axis views. The patient underwent pharmacologic (Regadenoson) evaluation with a peak heart rate of 97 beats per minute (66% percent predicted maximal heart rate) and a peak blood pressure of 196/98 mmHg. The patient was injected with the 33.5 millicuries of technetium 99m Cardiolite and subsequently stress SPECT Cardiolite nuclear imaging was obtained in the horizontal long, vertical long, and short axis views. A gated Cardiolite study at peak stress was obtained. Interpretation: Rest and stress SPECT Cardiolite nuclear imaging status post realignment, normalization, and attenuation correction demonstrate the appearance, status post stress, of an area of decreased cardio perfusion/tracer uptake in the distal inferior and inferior apical segments. There is end systolic thickening and brightening. The gated Cardiolite study demonstrates myocardial thickening and inward wall motion. The reported LVEF is 69 %. Impression: 1. And stress SPECT cardio light nuclear imaging demonstrate status post stress and area of decreased tracer uptake in portions of the distal inferior and inferior apical segments appearing concerning for an area of stress-induced myocardial ischemia. 2. The gated Cardiolite study reports an LVEF of 69 %. This note was generated with Vertical Circuits[employer] software. It may contain incorrect words, spelling, and punctuation that were not noted in checking the note before signing. 03/05/181903 <Electronically signed by Gregg Cabral MD> Date Gregg Cabral MD CC: Michael Simms MD; Gregg Cabral MD Date Dictated: 03/05/181858 Date Transcribed: 03/05/181858 Carroter: PM Signed ECHOCARDIOGRAM COMPLETE Observed: 03/05/2018 Status: F Source: [place] 2:26 PM [facility] REPOSITORY [facility] Cardiovascular Services [address] [place] [address] Echo Complete 03/05/18 1052 MR#: [id number] Acct: [id number] Name: FRANK MUSTAFA Rep #: [id number] : 1940 77 From: Gregg Cabral MD Attending Dr: Gregg Cabral MD Status: REG CLI Ordering Dr: Gregg Cabral MD Date: 03/05/18 Location: [facility] Sex: M C Admitted: Reason For Study: CAD Procedure This was a 2D Doppler, Color Flow transthoracic echocardiogram. The exam was of adequate technical quality. Exam performed in department. Left Ventricle Normal LV size. Sigmoid septum. Left ventricular systolic function is normal. The estimated ejection fraction is 55 %. Diastolic dysfunction: considered indeterminate. No regional wall motion abnormalities noted. Right Ventricle Normal RV size. ICD or pacer leads identified within the right ventricle. Normal systolic function. Atria The left atrium is mildly enlarged. Normal right atrium. ICD or pacer leads identified within the right atrium. No doppler evidence for ASD. Mitral Valve Normal mitral valve. Mild diffuse mitral valve thickening. Mild mitral valve prolapse, posterior leaflet. Trivial mitral valve insufficiency. Tricuspid Valve Normal tricuspid valve. Trivial tricuspid valve insufficiency. Right ventricular systolic pressure estimated to be 23 mmHg. Aortic Valve Trisinus/trileaflet aortic valve. Normal aortic valve. Pulmonic Valve The pulmonic valve is not well visualized. Trivial pulmonic valve insufficiency. Great Vessels Normal sized aortic root. Pericardium/Pleural No pericardial effusion. MMode/2D Measurements AND Calculations LVIDd: 3.8 cm IVSd: 0.82 cm Ao root diam: 3.1 cm LVIDs: 3.0 cm FS: 22.6 % LA dimension: 3.2 cm LAV(MOD-bp): 43.8 ml EDV(MOD-sp4): 101.4 ml EDV(MOD-sp2): 111.1 ml LAV(MOD-bp) Indexed: 22.1 ml/m2 ESV(MOD-sp4): 60.0 ml EF(MOD-sp2): 64.1 % LAV(MOD-sp2): 42.2 ml EF(MOD-sp4): 40.9 % LAV(MOD-sp4): 39.8 ml SV(MOD-sp4): 41.4 ml SV(MOD-sp2): 71.3 ml LA A4 area: 15.4 cm2 RA A4 area: 12.7 cm2 Doppler Measurements AND Calculations MV E max deejay: 53.2 cm/sec Lat Peak E' Deejay: 5.3 cm/sec Med Peak E' Deejay: 6.0 cm/sec MV A max deejay: 71.2 cm/sec E/E' lat: 10.0 E/E' med: 8.9 MV E/A: 0.75 Ao V2 max: 93.7 cm/sec LV V1 max: 78.6 cm/sec PA V2 max: 117.5 cm/sec Ao max P.5 mmHg LV V1 max P.5 mmHg TR max deejay: 224.1 cm/sec TR max P.1 mmHg Interpretation Summary Left ventricular systolic function is normal. The estimated ejection fraction is 55 %. Sigmoid septum. The left atrium is mildly enlarged. Mild diffuse mitral valve thickening. Mild mitral valve prolapse, posterior leaflet Trivial mitral valve insufficiency. Trivial tricuspid valve insufficiency. Trivial pulmonic valve insufficiency. Right ventricular systolic pressure estimated to be 23 mmHg. Diastolic dysfunction: considered indeterminate ICD or pacer leads identified within the right atrium ICD or pacer leads identified within the right ventricle. Ordering Physician: Gregg Cabral Referring Physician: MICHAEL SIMMS Performed By: Antonella Ashton, SAPNA, RVT 03/05/18 1425 Date Gregg Cabral MD CC: Michael Simms MD; Gregg Cabral MD Date Dictated: 03/05/18 1052 Date Transcribed: 03/05/18 1425 Carroter: Signed CARDIOLOGY VISIT Observed: 02/20/2018 Status: F Source: [place] REPORT 12:31 PM [facility] REPOSITORY [facility] [address] [place] [address] OFFICE VISIT Date of Service: 02/20/18 MR#: [id number] Acct: [id number] Name: FRANK MUSTAFA Rep #: [id number] : 1940 Provider: Gregg Cabral MD Age/Sex: 77/M Location: [facility] Status: Signed HPI HPI Details: FRANK MUSTAFA, is a 77 M who presents to the office today for for outpatient cardiovascular consultation for history of underlying CAD, PCI, CABG, permanent pacemaker placement, superimposed upon a history of hyperlipidemia and hypertension. He has been previously cared for by the late Karlos Raza, III, DO, for the aforementioned conditions. He states he is now wanting to establish care with the [facility]. Based upon his recollection and medical records available for review it appears that he has undergone noninvasive and invasive evaluation and care in the past. It appears that on 05/16/2014 he had a transthoracic echocardiogram performed. According to the report he had the left ventricle to have mild inferobasal hypokinesis with an LVEF of 50-55%, biatrial enlargement, mild MR, as well as dilatation of the right ventricle being mildly enlarged and hypokinetic with a permanent pacemaker noted in the right ventricle. It appears that on 03/01/2014 he had a pharmacologic stress nuclear imaging study performed which suggested a small inferior wall scar with minimal to mild emerson-infarct ischemia with an LVEF at 61%. On 05/03/2014 he had a diagnostic cardiac catheterization performed at [facility] in [place], [place]. According to the report he had significant left main disease, severe three-vessel disease, and at that time patent grafts to the mid LAD, diagonal branch, and distal LCx with occluded grafts to the proximal LCx and the distal RCA. His LV demonstrated inferobasal hypokinesis with an LVEF of 50-55%. He was recommended for medical management at that time. Of note, his RCA was considered nondominant with an 80-85% stenosis with consideration depending upon his clinical course of possible stenting of the RCA vessel. There does not appear to be a previous PCI report available for review at this time. However, in an outpatient cardiovascular visit note from March 17, 2017 there is a comment that patient had a previous PCI of the distal RCA and the mid to proximal RCA with Promus Premier drug-eluting stents performed on 05/04/2014. It appears that he had a previous coronary artery bypass grafting surgery performed on 04/05/2014. According to the note he received a BYERS to the LAD, and SVG to the diagonal branch, and SVG to OM1, and SVG to OM 3, and an SVG to the RCA. His permanent pacemaker was placed on 05/06/2014. According to the report he received a [employer] dual-chamber pacemaker model number K174 serial #[id number]. He believes his last permanent pacemaker check was performed in September 2017. He states he is scheduled for pacemaker interrogation approximately 1 month. At the present time he states overall he remains active and has done relatively well. However he does note that recently, approximately 1 month ago, while in an airport, he got a vague chest discomfort across the top of his chest. He states that that reminded him of symptoms he had prior to his cardiac diagnosis and need for cardiovascular intervention/surgery. At other times with activity he has not noted the symptoms. He has not been complaining of worsening shortness of breath or dyspnea. There is been no issues of orthopnea or PND or peripheral pitting edema. There has been no near syncope or syncope. He did have an ECG performed in the office today. He was noted to be in an underlying sinus rhythm with a right bundle branch block pattern. Intake Vital Signs02/20/18 Height 5 ft 10 in 02/20/18 Weight: 177 lb 02/20/18 Body Mass Index (BMI) 25.4 02/20/18 Blood Pressure 130/74 Intake Visit Reasons: establish care/ Former Dr. Raza patient Allergies No Known Allergies Allergy (Unverified 02/20/18 09:08) Medications aspirin 81 mg tablet,delayed release 81 mg PO QDAY 02/17/18 [History Confirmed 02/20/18] calcium carbonate 600 mg calcium (1,500 mg) tablet 600 mg PO QDAY tab 02/17/18 [History Confirmed 02/20/18] carvedilol 12.5 mg tablet 12.5 mg PO BID 02/17/18 [History Confirmed 02/20/18] pravastatin 40 mg tablet 40 mg PO QDAY 02/17/18 [History Confirmed 02/20/18] multivitamin tablet 1 tab PO QDAY 02/20/18 [History Confirmed 02/20/18] nitroglycerin 0.4 mg sublingual tablet 0.4 mg SUBLINGUAL Q5M PRN #90 tab 02/20/18 [Rx Confirmed 02/20/18] [facility] Medical History Atherosclerosis of coronary artery bypass graft without angina pectoris (Chronic) History of third degree heart block (Acute) RBBB (right bundle branch block) (Acute) Presence of permanent cardiac pacemaker (Chronic 05/06/14) Presence of stent in coronary artery (Chronic 05/04/14) Atherosclerotic heart disease of [place] coronary artery without angina pectoris (Chronic) Hyperlipidemia (Chronic) Hypertension (Chronic) Osteoarthritis (Acute) Paresthesia (Acute) Surgical History Aortocoronary bypass status (Chronic 04/05/14) Postsurgical percutaneous transluminal coronary angioplasty (PTCA) status (Chronic) History of local excision of skin lesion (Resolved) Hx of appendectomy (Resolved) Family History Brother COPD (chronic obstructive pulmonary disease) Sister History of DVT (deep vein thrombosis) Brother COPD (chronic obstructive pulmonary disease) Father COPD (chronic obstructive pulmonary disease) Social History Smoking Status: Former smoker alcohol intake: never substance use type: does not use ROS Const Const: Negative for fatigue, weakness, weight gain, weight loss, frequent falls or excessive sweating Eyes Eyes: Negative for change in vision, blurry vision or transient loss of vision ENT ENT: Negative for dizziness or balance problems Cardio Chest Pain: Yes Character: other (tired muscle feeling) Location: other (across upper chest) Duration: minutes (1-2 minutes) Exacerbation: activity Palpitations: No Edema: None Muscle aches with walking: None Additional Details: Patient reports experiencing chest discomfort about a month agree after walking a long distance and upstairs while at the airport. Patient describes the feeling as a tired muscle across the upper chest lasting 1-2 minutes. Patient states that discomfort was similar in [facility] as to what he experienced prior to needing CABG. Resp Respiratory: Negative for SOB with activity or SOB at rest GI GI: Negative vomiting or vomiting blood/hematemesis : Negative for hematuria Musc Musc: Positive for muscle aches/ myalgia (knee pain) and joint pain (occasional knees, fingers, wrist, pedals); negative for balance problems or muscle weakness Skin Skin: Negative non-healing lesions or rash Neuro Neuro: Positive for other (benign essential tremors bilat hands); negative for weakness, blurry vision, dizziness, lightheadedness, frequent falls or orthostatic symptoms Allan Hematologic/Lymphatic: Negative for easy bleeding Endo Endo: Negative for fatigue or excessive sweating Psych Psych: Negative for anxiety or depression Allergy Allergy/Immunology: Negative for hives, Negative for rash Cardiology Exam Const Appearance: cooperative, healthy appearing, comfortable, no acute distress, well developed and well groomed Nutritional Appearance: average body habitus Orientation: alert, awake and oriented x3 Head Head: normal to inspection, normocephalic and atraumatic Ears: hearing grossly normal bilaterally Nose: external nose normal Face and Sinus: face symmetric Mouth: oral mucosae normal Teeth and gingiva: fair dentition Eyes Eyelids: eyelids normal Conjunctivae: conjunctivae normal Pupils: PERRL EOM: EOM intact bilaterally Neck Neck: normal visual inspection and full ROM Carotids: normal carotid upstroke Chest Chest inspection: normal inspection of the chest and symmetric chest movement Auscultation: Bilateral: Clear to Auscultation Cardio Palpation: normal PMI Rhythm: regular rhythm Heart sounds: S1 normal, S2 normal and positive S4 GI GI: normal to inspection, soft, no hepatosplenomegaly and bowel sounds present Neuro General: alert, awake, oriented x3, gait normal, moves all extremities, no focal sensory deficit and no focal motor deficits Skin Skin: no rashes or lesions noted Extremities Pulses: Normal: Right Radial Pulse, Left Radial Pulse Lower Extremity Edema: None: Bilateral Psych Psychological: normal affect Assessment AND Plan 1. Coronary artery disease of [place] artery of [place] heart with stable angina pectoris I25.118 Plan At the present time he does have underlying CAD. He is undergone a combination of PCI and CABG in the past. He does have symptoms that are concerning for his cardiovascular symptoms as noted above. Thus was felt reasonable that he not only continue medical management, which would include nitroglycerin sublingual as needed, but proceed with additional cardiovascular diagnostic studies. This would include an exercise tolerance test/imaging study to reassess his coronary anatomy physiology/ischemic burden. Depending upon the findings he may or may not need repeat diagnostic cardiac catheterization. He will also have a follow-up transthoracic echocardiogram. This will be to reevaluate his left ventricular wall motion systolic function for any obvious new wall motion abnormalities that may indicate ongoing progression of CAD or graft vessel disease, etc. and warrant further evaluation and care as well. 2. S/P PTCA (percutaneous transluminal coronary angioplasty) Z98.61 PCI to the Distal RCA and PTCA/Stent x2 to Mid-Proximal RCA 05/04/14 Plan He does have a history of previous PCI as noted above. Again he will undergo evaluation care as noted above. Orders Orders: 3. Postsurgical aortocoronary bypass status Z95.1 CABG x5- BYERS to LAD, SVG to Diagonal, SVG to OM1, SVG to OM3, SVG to RCA 04/05/14 Plan He has undergone previous CABG. He has demonstrated evidence of graft closure. He will continue risk factor modification medical management. He will continue evaluation as noted above. Orders Orders: 4. Presence of permanent cardiac pacemaker Z95.0 Plan He does have a permanent pacemaker in place. He is going to keep his future pacemaker appointment. However he is agreeable to reestablishing his pacemaker care in the future with the [facility]. Orders Orders: 5. Hyperlipidemia, unspecified hyperlipidemia type E78.5 Plan He does have a history of hyperlipidemia. He is on lipid- lowering medication. He states this is followed by his primary care physician. 6. Hypertension, unspecified type I10 Plan His blood pressure appears to be recently well controlled. He will continue his current medical management. Plan Detail Other Orders Orders: Other Medications New: nitroglycerin until response; do not exceed 3 dos0.4 mg Sublingual Q5M PRN chest pain es per event Additional Comments The above was discussed with the patient. He was agreeable to this approach. Thank you for allowing me to participate in the care of your patient. Please don't hesitate to call if any issues arise. This note was generated using a voice recognition system and there may be incorrect words, spelling or punctuation that were not noted when reviewing the office note prior to saving. Follow Up 6 Months (PFM) 02/20/18 (Establish with Rajendra Mejia RN for [facility]) Coding Level of Care Code Off vis,new,level 5 Diagnoses Coronary artery disease of [place] artery of [place] heart with stable angina pectoris I25.118 Associated angina: with stable angina Coronary Disease-Associated Artery/Lesion type: [place] artery [place] vs. transplanted heart: [place] heart S/P PTCA (percutaneous transluminal coronary angioplasty) Z98.61 Postsurgical aortocoronary bypass status Z95.1 Presence of permanent cardiac pacemaker Z95.0 Hyperlipidemia, unspecified hyperlipidemia type E78.5 Hyperlipidemia type: unspecified Hypertension, unspecified type I10 Hypertension type: unspecified Coding Level of Care Code Off vis,new,level 5 Diagnoses Coronary artery disease of [place] artery of [place] heart with stable angina pectoris I25.118 Associated angina: with stable angina Coronary Disease-Associated Artery/Lesion type: [place] artery [place] vs. transplanted heart: [place] heart S/P PTCA (percutaneous transluminal coronary angioplasty) Z98.61 Postsurgical aortocoronary bypass status Z95.1 Presence of permanent cardiac pacemaker Z95.0 Hyperlipidemia, unspecified hyperlipidemia type E78.5 Hyperlipidemia type: unspecified Hypertension, unspecified type I10 Hypertension type: unspecified 02/20/18 1231 <Electronically signed by Gregg Cabral MD> Date Gregg Cabral MD Cosigner Signature: Date (if applicable) CC: Michael Simms MD 12 LEAD EKG PERFORMED Observed: 02/20/2018 Status: F Source: [place] [facility] 9:[address] [address] 12 Lead EKG performed by [facility] 02/20/18 0907 MR#: [id number] Acct: [id number] Name: FRANK MUSTAFA Rep #: [id number] : 1940 77 From: Gregg Cabral MD Attending Dr: Gregg Cabral MD Status: DEP AMB Ordering Dr: Gregg Cabral MD Date: 02/20/18 [place] [facility] [place] C Admitted: BMS/12 Lead EKG performed by [facility] [place] ECG Report Interpretation Sinus Rhythm Right bundle branch block. ABNORMAL Electronically signed on 02/20/2018 at 12:38 by Gregg Cabral 02/20/18 1239 Date Gregg Cabral MD CC: Michael Simms MD Date Dictated: 02/20/18906 Date Transcribed: 02/20/18906 Carroter: PM Signed 12 LEAD ELECTROCARDIOGRAM Observed: 02/11/2018 Status: F Source: [place] 2:11 PM [facility] REPOSIT[facility] Cardiovascular Services [address] [place] [address] 12 Lead EKG 02/09/18 1301 MR#: [id number] Acct: [id number] Name: FRANK MUSTAFA Rep #: [id number] : 1940 77 From: Gregg Cabral MD Attending Dr: Status: DEP ER Ordering Dr: Celeste Luciano MD Date: 02/09/18 Location: ED Sex: M C Admitted: Test Reason : CP Blood Pressure : / mmHG Vent. Rate : 065 BPM Atrial Rate : 065 BPM P-R Int : 168 ms QRS Dur : 142 ms QT Int : 430 ms P-R-T Axes : 052 013 036 degrees QTc Int : 447 ms Normal sinus rhythm Right bundle branch block Abnormal ECG Confirmed by MARIANNA NICOLE, GREGG ([id number]), index editor MARSHA DAMIAN ([id number]) on 02/11/2018 2:11:34 PM Referred By: ERIN Confirmed By:GREGG CABRAL MD 02/11/18 1411 Date Gregg Cabral MD CC: Michael Simms MD; Celeste Luciano Signed EMERGENCY DEPARTMENT Observed: 02/09/2018 Status: F Source: [place] SUMMARY 5:25 PM [facility] REPOSIT[facility] Medical Records Department [address] [place] [address] Emergency Department Summary 02/09/18 1450 MR#: [id number] Acct: [id number] Name: FRANK MUSTAFA Rep #: [id number] : 1940 77 From: Celeste Luciano MD PCP: Michael Simms MD Status: DEP ER - ER Visit Summary Date of Service: 02/09/18 Chief Complaint: Chest pain History of Present Illness: The patient is a 77 M presenting for evaluation secondary chest pain. Patient has an underlying history of a quintuple bypass as well as cardiac stenting in the past. Patient states that a couple weeks ago he was [place] stairs at the airport and had an onset of chest pain. He described it as a tightness the last 2-3 minutes. He states that he has not had any similar episodes since then, but was concerned because the symptoms he was having were similar to what he had when he had his [place] in the past. Patient denies any DVT or PE risk factors. He is going to be establishing with Dr. Cabral a week from Friday. Physical Examination: Vital signs are within normal limits, patient is afebrile. General: Patient is well-nourished well-developed and in no acute distress. Head: Normocephalic, atraumatic Eyes: Pupils equal round and reactive bilaterally, extra occular motion intact bialterally ENT: Moist mucous membranes Neck: Supple, no lymphadenopathy, no JVD, no meningismus CVS: Heart regular rate and rhythm, no murmurs, rubs or gallops, radial pulses 2+ bilaterally Resp: Respirations nondistressed, lung sounds clear bilaterally Abdomen: Soft, nontender, nondistended, no palpable masses, normal bowel sounds Back: Nontender Extremities: Nontender, atraumatic, active full range of motion, no peripheral edema Skin: warm, no rashes, no petechia Neuro: Alert and oriented x 4, CN 2-12 intact, no lateralizing neurological defecits Psyc: Normal affect Test Results: EKG demonstrates right bundle branch block with a rate of [address] segments normal T waves. Chest x-ray shows cardiomegaly. CBC chemistry troponin are unremarkable. Emergency Department Course and Treatment: Patient presented for evaluation secondary to chest pain. His workup was negative as noted above. Patient's SUZANNA score is 3 and his heart score is 6. Patient seem to have an episode of stable angina. At this point I do not believe that he requires admission. I discussed patient's case with Dr. Cabral who is in agreement and will follow the patient up as an outpatient. Patient was given signs and symptoms for which to return, and he was discharged in stable condition Disposition: Discharge Impression: 1. Stable angina This note was generated with [employer] dictation software. It may contain incorrect words, spelling, and punctuation that were not noted in review of the chart prior to signing ED Disposition - Plan for ED Patient: Disposition: Home or Assisted Living Chief Complaint: Chest Pain Instructions: ED Chest Pain Angina Stable Referrals: Gregg Cabral MD [STAFF PHYSICIAN] - Keep Velma appointment What to do if you have Problems For any increased pain, shortness of breath, bleeding, nausea or vomiting, chest pain, or any unexpected problems, contact your Primary Care Provider. Call [facility] ([phone]) or report to the closest Emergency Room. Call 911 if necessary. 02/09/18 0285 <Electronically signed by Celeste Luciano MD> Date Celeste Luciano MD Cosigner Signature (If Indicated): Date CC: Michael Simms MD CBC W/DIFF, AUTOMATED Collected: 02/09/2018 Status: F Source: [place] 1:20 PM [facility] REPOSIT[facility] TYPE CODE TESTS RESULT OUT OF RANGE REFERENCE UNITS LAB L100.1000 4.4-11.0 K/mm3 Normal WBC 6.0 LAB L100.1200 4.6-6.2 M/mm3 Normal RBC 4.89 LAB L100.1300 13.0-16.5 g/dl High HGB 17.3 LAB L100.1400 40-54 % Normal HCT 49.4 LAB L100.1500 80-94 fL High MCV 101.0 LAB L100.1600 27.0-32.0 pg High MCH 35.4 LAB L100.1700 32-36 g/gl Normal MCHC 35.0 LAB L100.1810 11.6-14.6 % Normal RDW CV 13.0 LAB L100.1820 35.1-43.9 fl High RDW SD 48.9 LAB L100.1900 150-450 K/mm3 Normal PLT 157 LAB L100.2000 6.2-12.0 fl Normal MPV 9.9 LAB L100.2100 47-70 % Low NEUT% 37.5 LAB L100.2200 19-41 % High LY% 51.0 LAB L100.2300 0-10 % Normal MONO% 8.3 LAB L100.2400 0-5 % Normal EO% 3.0 LAB L100.2500 0-1 % Normal BASO% 0.2 LAB L100.2550 0.0-0.9 % Normal IM GRAN % 0.000 Result Comment: IG% - Immature Granulocytes (promyelocytes, myelocytes and metamyelocytes) > 1% indicates that a LEFT SHIFT is Present. LAB L100.2620 2.0-7.7 X10 3/uL Normal Absolute Neut 2.3 LAB L100.2720 0.83-4.51 X10 3/ul Normal Absolute Lymph 3.06 Performed By: #### L100.0100 #### [facility] [address] [place], [place], [address] BASIC METABOLIC Collected: 02/09/2018 Status: F Source: [place] PROFILE (BMP) 1:20 PM [facility] REPOSIT[facility] Order Comment: 'TROP' Serial specimen #1, #2, #3, or #4: 1 TYPE CODE TESTS RESULT OUT OF RANGE REFERENCE UNITS LAB L501.0100 74-106 mg/dL High GLU 139 Result Comment: Fasting Glucose result greater than or equal to 126 mg/dL suggests DIABETES MELLITUS per A.D.A. criteria. Please note revised GLUCOSE reference range effective 2017. LAB L501.1000 7-18 mg/dL High BUN 19 LAB L501.1100 0.70-1.30 mg/dL Normal CREAT,SERUM 1.01 Result Comment: The validity of the calculated GFR AND GFRAA in patients over 70 years has not been determined. Clinical correlation is essential. LAB L501.1110 >60 mL/min Normal EST GFR 77 Result Comment: Non- GFR Calc LAB L501.1115 >60 mL/min Normal EST GFR - AA 93 Result Comment: GFR Calc LAB L501.1255 ml/min Normal Estimated CRCL 65.25 LAB L501.1300 10-20 RATIO Normal BUN/CRE 18.8 LAB L501.2200 8.5-10 mg/dL Normal .1 CA 9.5 LAB L501.5300 136-14 mmol/L Normal 5 NA 140 LAB L501.5600 3.5-5. mmol/L Normal 1 K 4.2 LAB L501.5900 98-107 mmol/L Normal CL 104 LAB L501.6100 21.0-3 mmol/L Normal 2.0 CO2 29.0 LAB L501.6200 5-15 Normal GAP 7 Performed By: #### L500.2500, L501.4010 #### [facility] Laboratory [address], [address] TROPONIN-I Collected: 02/09/2018 Status: F Source: PURCELL 1:20 PM [facility] REPOSITORY Order Comment: 'TROP' Serial specimen #1, #2, #3, or #4: 1 TYPE CODE TESTS RESULT OUT OF RANGE REFERENCE UNITS LAB L501.4010 <0.06 ng/mL Normal < 0.02 TROPONIN-I Result Comment: TROPONIN-I EXPECTED VALUES <0.05 NEGATIVE 0.06 - 0.59 AT RISK OF [place] > OR = 0.60 SUGGEST [place] Performed By: #### L500.2500, L501.4010 #### [facility] Laboratory [address] [place], [address] CHEST PA AND LATERAL Observed: 02/09/2018 Status: F Source: PURCELL 1:08 PM [facility] REPOSITORY [facility] Imaging Services [address] [place] [address] Chest PA and Lateral MR#: [id number] Acct: [id number] Name: FRANK MUSTAFA Rep #: [id number] : 1940 M 77 From: Carlos Alberto Santana MD PCP: Michael Simms MD Status: REG ER Study: Chest PA and Lateral Date of Exam: 02/09/18 Exam# [id number] Ordering Dr: Celeste Luciano MD STUDY: X-RAY CHEST REASON FOR EXAM: Male, 77 years old. Chest pain for 2 weeks. TECHNIQUE: Frontal and lateral views of the chest. COMPARISON: None. FINDINGS: The lungs are hyperexpanded. There is no demonstrated pleural abnormality. There is borderline cardiomegaly with sternotomy wires and a dual-lead cardiac pacer. Normal mediastinum and heather. Normal visualized pulmonary arteries. There is atherosclerotic calcification of the aortic arch with tortuosity. Normal visualized thoracic spine. Normal visualized ribs, clavicles, and shoulders. There is no demonstrated abnormality of the visualized soft tissue structures of the upper abdomen. RAD/Chest PA and Lateral IMPRESSION: Borderline cardiomegaly with hyperexpansion. No acute or active cardiopulmonary disease. Electronically Signed: Carlos Alberto Santana MD at 14:01 EDT , Service support , CC: Michael Simms MD; Celeste Luciano Carroter: Signed ALLERGIES ALLERGIES DATE TYPE / CODE NAME / CODE REACTION SEVERITY SOURCE 10/02/2018 Drug No Known Unknown [facility] Allergy/4160 Allergies/F00 [facility] 51397(SNOMED 7415087(RXNOR Repository CT) M) ENCOUNTERS ENCOUNTERS ADMIT/DISCHARGE ACCOUNT NUMBER ADMITTING ENCOUNTER LOCATION SOURCE CLASS 10/02/2018/10/02/20 [id number] Ambulatory BMSBuilding: [place] 18 [facility] Repository 09/19/2018 [id number] [facility] BMSBuilding: [place] Teddy BMS.CF.[facility] Repository 09/18/2018/09/19/20 [id number] [facility] [place] 18 [facility] ding:ZB4Hlrb Repository : NO458Cki: 1 09/18/2018 [id number] Ambulatory BMSBuilding: [facility] Repository 09/18/2018 [id number] Ambulatory BMSBuilding: [place] BMS.CF[facility] Repository 09/14/2018/09/14/20 [id number] Ambulatory BMSBuilding: [place] 18 [facility] Repository 09/11/2018 [id number] Ambulatory BBuilding:OS [facility]ong [facility] Repository 09/10/2018/09/10/20 [id number] Ambulatory BMSBuilding: [place] 18 [facility]MS[facility] Repository 09/08/2018/09/08/20 [id number] Ambulatory BBuilding:OP [place] 18 RS [facility] Repository 09/04/2018/09/04/20 [id number] Ambulatory BBuilding:RA [place] [address] D [facility] Repository 09/04/2018/09/04/20 [id number] Ambulatory BBuilding:OL [place] [address] AB [facility] Repository 03/17/2018 [id number] Ambulatory [facility] ding:CLSP Repository 03/17/2018 [id number] Ambulatory BMSBuilding: [facility] Repository 03/05/2018 [id number] Ambulatory [facility] ding:[facility] Repository 03/05/2018 [id number] Ambulatory BMSBuilding: [facility] Repository 02/20/2018/02/21/20 [id number] Ambulatory BMSBuilding: [place] 18 BMS.[facility] Repository 02/17/2018 [id number] Ambulatory BMSBuilding: [place] BMS.[facility] Repository 02/09/2018/02/10/20 [id number] Emergency [address] ding:ED Repository PAYERS PAYERS ENCOUNTER GUARANTOR PAYER SUBSCRIBER SOURCE 10/02/2018 FRANK A Primary FRANK A [place] [id number] Insurance:MEDICARE GEISERDOB: [facility] PART A [facility] [id number] Number: Repository [address]Qua: (511) [id number] [phone] () Date:2018-09-21 10/02/2018 Secondary FRANK A [place] Insurance:CIGNAPolicy GEISERDOB: Community Number: [id number] Hospital [id number] Repository Date:6666-64-89QF [address], [place] [address]YT: 10/02/2018 Tertiary NOT GIVENUNK [place] Insurance:SELF PAY [facility] Number: Effective Repository Date:2018-09-30 09/19/2018 FRANK A Primary FRANK A [place] [id number] Insurance:MEDICARE GEISERDOB: Community NAYAN PART A [facility] [id number] [place] [address] Number: Repository 324[address]Nma: 330 [id number] [phone] () Date:2018-09-15 09/19/2018 Secondary FRANK A [place] Insurance:CIGNAPolicy GEISERDOB: Community Number: [id number] [place] [address] [id number] Repository Date:9964-48-06EA [address]ZK[place]FRY, [place] [address]LW: 09/19/2018 Tertiary NOT GIVENUNK [place] Insurance:SELF PAY [facility] Number: Effective Repository Date:2018-09-19 09/18/2018 FRANK A Primary FRANK A [place] [id number] Insurance:MEDICARE [facility] [id number] Number: Repository [address]Xoo: 330 [id number] [phone] () Date:2018-09-15 09/18/2018 Secondary FRANK A [place] Insurance:CIGNAPolicy GEISERDOB: Community Number: [id number] [place] [address] [id number] Repository Date:3202-49-88IJ [address]AN[place], [place] [address]WZ: 09/18/2018 Tertiary NOT GIVENUNK [place] Insurance:SELF PAY [facility] Number: Effective Repository Date:2018-09-15 09/18/2018 FRANK A Primary FRANK A [place] [id number] Insurance:MEDICARE GEISERDOB: Community NAYAN PART A [facility] [id number] Number: Repository [address]Wia: 330 [id number] [phone] () Date:2018-09-15 09/18/2018 Secondary FRANK A [place] Insurance:CIGNAPolicy GEISERDOB: Community Number: [id number] [place] [address] [id number] Repository Date:5342-35-18ER [address] [place] [address]BW: 09/18/2018 Tertiary NOT GIVENUNK [place] Insurance:SELF PAY [facility] Number: Effective Repository Date:2018-09-18 09/18/2018 FRANK A Primary FRANK A [place] [id number] Insurance:MEDICARE GEISERDOB: [facility] [id number] [place] [address] Number: Repository [id number]: 330 [id number] [phone] () Date:2018-09-15 09/18/2018 Secondary FRANK A [place] Insurance:CIGNAPolicy GEISERDOB: Community Number: [id number] [place] [address] [id number] Repository Date:0042-89-38PN [address]INV[place], [place] [address]DA: 09/18/2018 Tertiary NOT GIVENUNK [place] Insurance:SELF PAY [facility] Number: Effective Repository Date:2018-09-18 09/14/2018 FRANK A Primary FRANK A [place] [id number] Insurance:MEDICARE GEISERDOB: Community NAYAN PART A [facility] [id number] [place] [address] Number: Repository [id number]: 330 [id number] [phone] () Date:2018-09-11 09/14/2018 Secondary FRANK A [place] Insurance:CIGNAPolicy GEISERDOB: Community Number: [id number] [place] [address] [id number] Repository Date:8666-11-04BC [address] [place] [address] 447[address]DE: 09/14/2018 Tertiary NOT GIVENUNK [place] Insurance:SELF PAY [facility] Number: Effective Repository Date:2018-09-14 09/11/2018 FRANK A Primary FRANK A [facility] GEISERDOB: Insurance:MEDICARE GEISERDOB: [facility] [id number] PART B IN[employer] [id number] Repository [facility] Number: [address] [place], [place] [id number] [place] [address]~TIMWZWIF00 Date:2018-09-11 31570Mug: 330) @[facility] [id number] [phone] : Name:[facility] ()Tel: (000) (HP)Tel: (999) Otveciiskhokhy LLCPO 000-0000 (WP) [phone] () [address] [place] [address]YJ: 09/11/2018 Secondary FRANK A [facility] Insurance:CIGNA GEISERDOB: [facility] Number: [id number] Repository [id number] 87 [place] Date:2018-09-11 - [place], [place] 5312-19-89Piot [address]Kkg: (330) Name:SAUSAGE [address] [address]Qgndjaoqgsw, [place] ()Tel: [phone]) [phone]: () [phone] 09/10/2018 FRANK A Primary FRANK A [place] [id number] Insurance:MEDICARE GEISERDOB: [facility] PART A [facility] [id number] Number: Repository [address]Efy: 330 [id number] [phone] () Date:2018-04-06 09/10/2018 Secondary FRANK A [place] Insurance:CIGNAPolicy GEISERDOB: [facility] Number: [id number] Hospital [id number] Repository Date:7247-25-16VS [address]WIHUNXCPBEV, [place] [address]FD: 09/10/2018 Tertiary NOT GIVENUNK [place] Insurance:SELF PAY [facility] Number: Effective Repository Date:2018-09-08 09/08/2018 FRANK A Primary FRANK A [facility] GEISERDOB: Insurance:MEDICARE GEISERDOB: [facility] PART B [employer] [id number] Repository [place] Number: [address] [place] [place] [id number] [place] [address]~[id number] Date:2018-09-07Tel: (330) @[employer] [id number] [phone] : Name:[facility] (HP)Tel: (000) (HP)Tel: (999) Towjpuexxesxje LLCFF 000-0000 (WP) [phone] () [address] [place] [address] 322[address]DU: 09/08/2018 Secondary FRANK Margo [facility] Insurance:CIGNA GEISERDOB: [facility] Number: [id number] Repository [id number] 87 N[place] Date:2018-09-07 [place] 5013-30-05Psaj [address]Teq: (330) Name:SAUSAGE [address] 766[address]Swdmlctyzpa, [place] ()Tel: 000) [phone]: (WP) [phone] 09/04/2018 FRANK A Primary [facility] GEISERD[facility]: Insurance:MEDICARE GEISERDOB: [facility] PART B INSC[employer] [id number] Repository [place] Number: [address] [place] [place] [id number] [place] [address]~[id number] Date:2018-09-0498870Aki: (330) @[employer] SystemsTe 8795-67-37Rndk59Wlcd [phone] : Name:[facility] (HP)Tel: (000) (HP)Tel: (999) Administrators LLCPO 000-0000 (WP) [phone] (WP) [address] [place] [address] [place] [address]UJ: 09/04/2018 Secondary [facility] Insurance[facility] INSCOPolicy Number: [id number] Repository [id number] 87 [facility] Date:2018-09-04 - [place] 3436-13-81Rihd [address]Wgn: (330) Name:[place] [address] ()Tel: (110) [phone]: (WP) [phone] 09/04/2018 FRANK [facility] Insurance:MEDICARE GEISERDOB: [facility] [id number] [facility] [id number] Repository [place] Number: [address] [place], [place] [id number] [place] [address]~[id number] Date:2018-09-04 826[address]Lzd: 330) @[facility] [id number] [phone] : Name:[facility] (HP)Tel: (000) (HP)Tel: (999) Administrators LLCPO 000-0000 (WP) [phone] (WP) [address] [address]Ojjjlsmps, [place] [address]QJ: 09/04/2018 Secondary [facility] Insurance:[facility]: [facility] INSCOPolicy Number: [id number] Repository [id number] 87 [address] Date:2018-09-04 [place] 5890-60-51Pfic [address]Wad: (403) Name:[address]83[facility]Ammclkcxffs, [place] ()Tel: ([phone]) [phone]: (WP) [phone] 03/17/2018 FRANK A Primary FRANK A [place] [id number] Insurance:MEDICARE GEISERDOB: Community NAYAN PART A [facility] [id number] [place] [address] Number: Repository [address]Apu: [id number] [phone] Date:2018-03-12 () 03/17/2018 Secondary FRANK A [place] Insurance:CIGNAPolicy GEISERDOB: Community Number: [id number] [place] [address] [id number] Repository Date:2982-77-41AT [address]TLLUISSSRFU, [place] [address]LB: 03/17/2018 Tertiary NOT GIVENUNK [place] Insurance:SELF PAY [facility] Number: Effective Repository Date:2018-03-12 03/17/2018 FRANK A Primary FRANK A [place] [id number] Insurance:MEDICARE GEISERDOB: [facility] PART A [facility] [id number] [place] [address] Number: Repository 316[address]Nin: 330 [id number] [phone] () Date:2018-03-12 03/17/2018 Secondary FRANK A [place] Insurance:CIGNAPolicy GEISERDOB: Community Number: [id number] [place] [address] [id number] Repository Date:8839-17-57SM [address]WRLVFZGPEXM, [place] [address]SI: 03/17/2018 Tertiary NOT GIVENUNK [place] Insurance:SELF PAY [facility] Number: Effective Repository Date:2018-03-17 03/05/2018 FRANK A Primary FRANK A [place] [id number] Insurance:MEDICARE [facility]DOB[facility] [id number] [place] [address] Number: Repository 227[address]Yss: [id number] [phone] Date:2018-02-20 () 03/05/2018 Secondary FRANK A [place] Insurance:CIGNAPolicy GEISERDOB: Community Number: [id number] [place] [address] [id number] Repository Date:8490-54-34VP [address]JNKJUZEUNVF, [place] [address]TS: 03/05/2018 Tertiary NOT GIVENUNK [place] Insurance:SELF PAY [facility] Number: Effective Repository Date:2018-02-20 03/05/2018 FRANK A Primary FRANK A [place] [id number] Insurance:MEDICARE GEISERDOB: Community NAYAN PART A [facility] [id number] [place] [address] Number: Repository [phone]: 330 [id number] [phone] () Date:2018-02-20 03/05/2018 Secondary FRANK A [place] Insurance:CIGNAPolicy GEISERDOB: [facility] Number: [id number] Hospital [id number] Repository Date:4086-98-87QK [address]DUVWCDNWDCY, [place] [address]OL: 03/05/2018 Tertiary NOT GIVENUNK [place] Insurance:SELF PAY [facility] Number: Effective Repository Date:2018-03-05 02/20/2018 FRANK A Primary FRANK A [place] [id number] Insurance:MEDICARE GEISERDOB: Community NAYAN PART A [facility] [id number] [place] [address] Number: Repository [address]Sdp: [id number] [phone] Date:2018-01-06 () 02/20/2018 Secondary FRANK A [place] Insurance:CIGNAPolicy GEISERDOB: Community Number: [id number] [place] [address] [id number] Repository Date:5450-44-56OR [address]YODDGOGTZIO, [place] [address]VN: 02/20/2018 Tertiary NOT GIVENUNK [place] Insurance:SELF PAY [facility] Number: Effective Repository Date:2018-02-20 02/17/2018 FRANK A Primary FRANK A [place] [id number] Insurance:MEDICARE GEISERDOB: Community NAY[place] PART A [facility] [id number] Number: Repository [address]Qdd: [id number] [phone] Date:2018-02-17 () 02/17/2018 Secondary FRANK A [place] Insurance:CIGNAPolicy GEISERDOB: Community Number: [id number] Hospital [id number] Repository Date:5770-12-38GG [address]UGTGYTGASFK, [place] [address]XH: 02/17/2018 Tertiary NOT GIVENUNK [place] Insurance:SELF PAY [facility] Number: Effective Repository Date:2018-02-17 02/09/2018 FRANK A Primary FRANK A [place] [id number] Insurance:MEDICARE [facility]ERDOB[facility] [id number] Number: Repository [address]Esd: [id number] [phone] Date:2018-02-09 () 02/09/2018 Secondary FRANK A [place] Insurance:CIGNAPolicy GEISERDOB: Community Number: [id number] Hospital [id number] Repository Date:1845-81-60QA [address]WQANNBSLJGG, [place] [address]HS: 02/09/2018 Tertiary NOT GIVENUNK [place] Insurance:SELF PAY [facility] Number: Effective Repository Date:2018-02-09
== END 2018-09-19 11:45 | disposition home or self-care (01) ==
LOC: SDC 09-19 18:04 → MS2 09-21 08:45
PROVIDERS: Anesthesiology; Admitting Provider Surgery; Family Provider Family Medicine; PCP Family Medicine; Referring Provider Surgery; Visit Provider Surgery
PROC: (CPT 47610; principal; 2018-09-18 13:55)
DX: K80.12 Calculus of gallbladder with acute and chronic cholecystitis without obstruction (principal); I25.2 Old myocardial infarction; I10 Essential (primary) hypertension; E78.00 Pure hypercholesterolemia, unspecified; I25.810 Atherosclerosis of coronary artery bypass graft(s) without angina pectoris; E78.5 Hyperlipidemia, unspecified; Z95.1 Presence of aortocoronary bypass graft; Z95.0 Presence of cardiac pacemaker; Z79.899 Other long term (current) drug therapy; Z79.82 Long term (current) use of aspirin; Z87.891 Personal history of nicotine dependence; Z85.828 Personal history of other malignant neoplasm of skin; M19.90 Unspecified osteoarthritis, unspecified site
CPT/HCPCS: 00790; 47563; 36415; 74300; 76000; 80048; 80053; 85025; 85027; 88304; 93005; 96361; 96374; 99218; J7030; J7120; G0378; G0379; J2405

== ENCOUNTER → 2020-04-05 | Outpatient (CLI) | payer MEDICARE, OTHER, SELFPAY ==
[2020-03-06 10:28] VITALS: BMI 25.4
--- NOTE | 2020-04-05 10:31 | VDLE_ITS ---
Reason For Study: DVT RIGHT LEFT CFV is compressible, spontaneous, phasic, GSV is normal. competent and demonstrates normal CFV is compressible, spontaneous, phasic, augmentation. competent, and demonstrates normal GSV was previously harvested. augmentation. FV prox-mid is compressible with normal FV is compressible, spontaneous, phasic, venous flow. competent and demonstrates normal FV distal is partially compressible with augmentation. minimal flow noted. POP V is compressible, spontaneous, phasic, Acute deep vein thrombosis is noted in the competent and demonstrates normal right popliteal vein. augmentation. T/P Tunk is partially compressible with T/P Trunk is compressible. minimal flow noted. PTV is compressible. PTV is compressible. LT PerV is compressible. RT PerV is compressible. Nonvascularized strucutre noted in the Procedure popliteal space measuring 1.07 x 3.23 x 3.64 Exam performed in department. cm. A preliminary report was called and/or faxed to [facility]. Interpretation Summary Acute deep venous thrombosis right popliteal vein with extension into the tibioperoneal trunk. Minimal flow noted in the right distal femoral vein. 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
== END | disposition home or self-care (01) ==
LOC: CVS 10:31
PROVIDERS: PCP Family Medicine; Referring Provider Internal Medicine Cardiovascular Disease; Visit Provider Internal Medicine Cardiovascular Disease
DX: I82.401 Acute embolism and thrombosis of unspecified deep veins of right lower extremity (principal); I25.810 Atherosclerosis of coronary artery bypass graft(s) without angina pectoris; R07.9 Chest pain, unspecified; E78.00 Pure hypercholesterolemia, unspecified; I10 Essential (primary) hypertension; Z95.0 Presence of cardiac pacemaker; Z95.1 Presence of aortocoronary bypass graft; Z95.5 Presence of coronary angioplasty implant and graft
CPT/HCPCS: 93970

== ENCOUNTER → 2020-07-06 | Outpatient (CLI) | payer MEDICARE, OTHER, SELFPAY ==
[2020-03-06 10:28] VITALS: BMI 25.4
--- NOTE | 2020-07-06 07:45 | VDLE_ITS ---
Reason For Study: DVT RIGHT LEFT CFV is compressible, spontaneous, phasic, GSV is normal. competent and demonstrates normal CFV is compressible, spontaneous, phasic, augmentation. competent, and demonstrates normal PTV is compressible. augmentation. RT PerV is compressible. FV is compressible, spontaneous, phasic, GSV was previously harvested. competent and demonstrates normal FV prox-mid is compressible with normal augmentation. venous flow. POP V is compressible, spontaneous, phasic, FV distal is partially compressible with competent and demonstrates normal minimal flow noted. augmentation. Pop V is dilated and noncompressible. T/P Trunk is compressible. T/P Tunk is partially compressible with PTV is compressible. minimal flow noted. LT PerV is compressible. No significant change from previuos study Hypoechoic area behind the knee measuring done 04/05/2020. 1.16 x 1.86 x 5.64 cm. Area is nonvascular. Procedure Exam performed in department. The exam was diagnostic. A preliminary report was called and/or faxed to Dr. Diaz. Interpretation Summary Chronic deep venous thrombosis right distal femoral vein with partial compressibility. 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
== END | disposition home or self-care (01) ==
LOC: CVS 07:45
PROVIDERS: PCP Family Medicine; Referring Provider Internal Medicine Cardiovascular Disease; Visit Provider Internal Medicine Cardiovascular Disease
DX: I82.511 Chronic embolism and thrombosis of right femoral vein (principal); I82.431 Acute embolism and thrombosis of right popliteal vein; I25.10 Atherosclerotic heart disease of native coronary artery without angina pectoris; I25.810 Atherosclerosis of coronary artery bypass graft(s) without angina pectoris; Z95.5 Presence of coronary angioplasty implant and graft
CPT/HCPCS: 93970

== ENCOUNTER 2020-12-12 08:45 | Outpatient (RCR) | payer MEDICARE, OTHER, SELFPAY ==
[2020-08-21 10:04] VITALS: BMI 25.1
[2020-12-12] MEDS: COVID-19 VACC, MRNA(PFIZER)/PF 30 MCG/0.3 ML SYRINGE IM (16:29)
[2021-01-02] MEDS: COVID-19 VACC, MRNA(PFIZER)/PF 30 MCG/0.3 ML SYRINGE IM (16:22)
== END 2021-03-13 23:59 ==
LOC: IMMUN 08:45
PROVIDERS: PCP Family Medicine; Referring Provider Family Medicine; Visit Provider Family Medicine
DX: Z23 Encounter for immunization (principal)
CPT/HCPCS: 0001A; 0002A; 91300

== ENCOUNTER → 2021-06-19 06:58 | Outpatient (CLI) | payer MEDICARE, OTHER, SELFPAY ==
--- NOTE | 2021-06-19 09:02 | STRESSREP_ITS ---
Stress Test Report Date: 06-19-2021 Procedure: Pharmacologic stress nuclear imaging study Indications: CAD; PCI; CABG; PAF; conduction system disorder; PPM Consent: Per the patient Procedure: The patient underwent pharmacologic (Regadenoson 0.4mg ) evaluation with a peak heart rate of 92 beats per minute (64%predicted maximal heart rate) and a peak blood pressure of 174/86 mmHg. The baseline ECG demonstrated sinus rhythm; intermittent electronic atrial pacemaker; right bundle branch block pattern. The peak pharmacologic ECG demonstrated no obvious ECG changes. There were no cardiac dysrhythmias pretest, during pharmacologic infusion, or recovery. There was no complaint of chest discomfort during pharmacologic infusion or recovery. The examination was discontinued secondary to completion of protocol. Impression: 1. Pharmacologic (Regadenoson) evaluation 2. Peak pharmacologic ECG with no obvious ECG changes. 3. There were no cardiac dysrhythmias pretest, during pharmacologic infusion, or recovery. 4. Nuclear images pending Myocardial perfusion imaging study: Technique: The patient was injected with 10.2 millicuries of technetium 99m Cardiolite and subsequently rest SPECT Cardiolite nuclear imaging was obtained in the horizontal long, vertical long, and short axis views. The patient underwent pharmacologic (Regadenoson) evaluation with a peak heart rate of 92 beats per minute (64% percent predicted maximal heart rate) and a peak blood pressure of 174/86 mmHg. The patient was injected with 32.8 millicuries of technetium 99m Cardiolite and subsequently stress SPECT Cardiolite nuclear imaging was obtained in the horizontal long, vertical long, and short axis views. A gated Cardiolite study at peak stress was obtained. Interpretation: Rest and stress SPECT Cardiolite nuclear imaging status post realignment, normalization, and attenuation correction demonstrate relative uniform tracer uptake and myocardial perfusion appearing within normal limits. There is end systolic thickening and brightening. The gated Cardiolite study demonstrates myocardial thickening and inward wall motion. The reported LVEF is 72%. Impression: 1. Rest and stress SPECT Cardiolite nuclear imaging demonstrate relative uniform tracer uptake and myocardial perfusion appearing within normal limits. 2. The gated Cardiolite study reports an LVEF of 72%. This note was generated with Atlas Poweredation software. It may contain incorrect words, spelling, and punctuation that were not noted in checking the note before signing.
== END ==
PROVIDERS: PCP Family Medicine; Referring Provider Internal Medicine Cardiovascular Disease; Visit Provider Internal Medicine Cardiovascular Disease
DX: I25.119 Atherosclerotic heart disease of native coronary artery with unspecified angina pectoris (principal); I10 Essential (primary) hypertension; E78.00 Pure hypercholesterolemia, unspecified; Z98.61 Coronary angioplasty status; Z86.79 Personal history of other diseases of the circulatory system; Z95.0 Presence of cardiac pacemaker; Z95.1 Presence of aortocoronary bypass graft
CPT/HCPCS: 78452; 93017; A9500; A4216; J2785

== ENCOUNTER → 2022-06-28 | Outpatient (CLI) | payer MEDICARE, OTHER, SELFPAY ==
--- NOTE | 2022-06-28 09:53 | VDLE_ITS ---
Reason For Study: LEG PAIN RIGHT LEFT GSV is normal. GSV is normal. CFV is compressible, spontaneous, phasic, CFV is compressible, spontaneous, phasic, competent and demonstrates normal competent, and demonstrates normal augmentation. augmentation. FV is compressible, spontaneous, phasic, FV is compressible, spontaneous, phasic, competent and demonstrates normal competent and demonstrates normal augmentation. augmentation. POP V is compressible, spontaneous, phasic, POP V is compressible, spontaneous, phasic, competent and demonstrates normal competent and demonstrates normal augmentation. augmentation. T/P Trunk is compressible. T/P Trunk is compressible. RT PerV is compressible. PTV is compressible. T/P trunk demostrates hyperechoic echoes with LT PerV is compressible. partial compressiblity suggest chronic DVT. Flow is noted throughout vessel. Procedure This is a venous duplex using B-mode, color flow and spectral Doppler. Exam performed in department. The study was technically difficult. A preliminary report was called and/or faxed to by fax @ [phone] @ 10:30 am. VL/Venous Duplex US - Miki Extrem Interpretation Summary Right lower extremity with chronic DVT noted at the tibial peroneal trunk. Left lower extremity no evidence of DVT. Ordering Physician: Gonzalez Patino Referring Physician: Hector Roberts Performed By: Jennyfer Davis, RDCS, RVT
== END | disposition home or self-care (01) ==
PROVIDERS: Referring Provider Surgery Vascular Surgery; Visit Provider Surgery Vascular Surgery
DX: M79.606 Pain in leg, unspecified (principal); M79.89 Other specified soft tissue disorders; Z86.718 Personal history of other venous thrombosis and embolism
CPT/HCPCS: 93970

== ENCOUNTER 2024-06-07 17:46 | Inpatient (IN) | payer MEDICARE, OTHER, SELFPAY ==
[2024-06-07] VITALS (9 sets, daily range): BP systolic 118–134; BP diastolic 66–105; PULSE 103–115; RESP 16–22; TEMP 36.2–36.9; O2SAT 87–95; BMI 23.0
--- NOTE | 2024-06-07 18:29 | EKG12_ITS ---
Test Reason : SOB Blood Pressure : / mmHG Vent. Rate : 105 BPM Atrial Rate : 105 BPM P-R Int : 168 ms QRS Dur : 128 ms QT Int : 368 ms P-R-T Axes : 061 037 050 degrees QTc Int : 486 ms Sinus tachycardia Right bundle branch block Abnormal ECG Confirmed by NAS NICOLE, MAGDI ([id number]), non linear editor TONY VÁZQUEZ ([id number]) on 06/08/2024 1:21:06 PM Referred By: VI/ROS Confirmed By:MAGDI LOVELL MD
[2024-06-07 19:44] LABS: Absolute Lymphocyte Count 3.55 X10^3/uL (0.83-4.51); Absolute Neutrophil Count 6.2 X10^3/uL (2.0-7.7); Basophil# 0.04 X10^3/uL; Basophil% 0.4 % (0-1); Eosinophil# 0.16 X10^3/uL; Eosinophils% 1.5 % (0-5); Hematocrit 51.2 % (40-54); Hemoglobin 17.4 g/dL (13.0-16.5); Lymphocyte # 3.55 X10^3/ul (0.83-4.51); Lymphocyte % 32.9 % (19-41); Mean Corpuscular Hgb 34.3 pg (27.0-32.0); Mean Platelet Vol. 9.4 fl (6.2-12.0); Monocyte# 0.87 X10^3/uL; Monocyte% 8.1 % (0-10); NRBC Flagged by Analyzer 0 % (0-5); Neutrophil # 6.15 X10^3/uL (2.7-7.7); Neutrophil % 56.9 % (47-70); Platelet Count 231 K/mm3 (150-450); RBC Distribution Width CV 12.5 % (11.6-14.6); RBC Distribution Width SD 46.6 fl (35.1-43.9); Red Blood Count 5.07 M/mm3 (4.6-6.2); White Blood Count 10.8 K/mm3 (4.4-11.0)
[2024-06-07 19:55] LABS: Anion Gap 4 (5-15); BUN 15 mg/dL (7-18); BUN/Creat Ratio 11.9 RATIO (10-20); Calcium,Total 10.6 mg/dL (8.5-10.1); Chloride 105 mmol/L (98-107); Creatinine, Serum 1.26 mg/dL (0.70-1.30); EST Glomerular Filtration Rate 58 mL/min (>60); Est Glom Filt Rate - Afr Amer 71 mL/min (>60); Glucose 141 mg/dL (74-106); Potassium 4.5 mmol/L (3.5-5.1); Sodium Level 138 mmol/L (136-145); Troponin-I HS 22 pg/mL (3.0-78.0)
--- NOTE | 2024-06-07 20:34 | EX.ED.DYSGE1 ---
HPI History of Present Illness Chief Complaint: Shortness of Breath 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 Paresthesia Osteoarthritis Hyperlipidemia Home Medications ?Medication ?Instructions ?Recorded ?Last Taken ?Type calcium carbonate (Calcium 600) 600 mg PO QDAY 02/17/18 Unknown History pravastatin 40 mg tablet 40 mg PO QDAY 02/17/18 Unknown History multivitamin 1 tab PO QDAY 02/20/18 Unknown History nitroglycerin 0.4 mg sublingual 0.4 mg sublingual Q5M PRN chest 01/10/20 Unknown Rx tablet pain #25 tabs glipizide 5 mg tablet 5 mg PO DAILY 01/21/22 Unknown History aspirin 81 mg tablet,delayed 162 mg PO QDAY 07/23/22 Unknown History release lisinopril 5 mg tablet 5 mg PO DAILY #90 tabs 09/20/22 Unknown Rx carvedilol 6.25 mg tablet 6.25 mg PO BID #180 tabs 08/11/23 Unknown Rx metformin 500 mg tablet,extended 500 mg PO BID 09/19/23 Unknown History release 24hr (osmotic) Allergy/AdvReac Type Severity Reaction Status Date / Time No Known Allergies Allergy Verified 06/07/24 17:47 Family History (Reviewed 09/19/23 @ 10:00 by Edi Montero BUSINESS OFFICE SPECIALIST, BUSINESS OFFICE SPECIALIST-C) Brother COPD (chronic obstructive pulmonary disease) Sister History of DVT (deep vein thrombosis) Brother COPD (chronic obstructive pulmonary disease) Father COPD (chronic obstructive pulmonary disease) Surgical History History of laparoscopic cholecystectomy (~09/2018) History of local excision of skin lesion Hx of appendectomy Aortocoronary bypass status (~04/05/14) Presence of stent in coronary artery (~05/04/14) Postsurgical percutaneous transluminal coronary angioplasty (PTCA) status Social History (Reviewed 09/19/23 @ 10:00 by Edi Montero BUSINESS OFFICE SPECIALIST, BUSINESS OFFICE SPECIALIST-C) Smoking Status: Former smoker how long ago did patient quit smokin + years ago alcohol intake: never substance use type: does not use caffeine: Yes Type: coffee Number of servings: 3 EXAM Physical Exam Const Vital Signs: 06/07/24 17:47 06/07/24 19:46 06/07/24 19:48 Temperature 97.2 F L 98.4 F Temperature Source Temporal Temporal Pulse Rate 115 H 110 H Respiratory Rate 20 H 22 H Respiratory Effort Blood Pressure 118/105 H 125/79 H 125/79 H Blood Pressure Mean 109 94 94 Pulse Ox 93 87 Oxygen Delivery Method Room Air Nasal Cannula Oxygen Flow Rate (L/min) 3 06/07/24 20:26 06/07/24 20:30 06/07/24 20:31 Temperature Temperature Source Pulse Rate Respiratory Rate Respiratory Effort Short of Breath Blood Pressure Blood Pressure Mean Pulse Ox 90 Oxygen Delivery Method Room Air Nasal Cannula Oxygen Flow Rate (L/min) 3 06/07/24 21:00 06/07/24 21:00 06/07/24 22:31 Temperature 97.8 F 97.9 F Temperature Source Temporal Temporal Pulse Rate 105 H 106 H Respiratory Rate 16 20 H Respiratory Effort Blood Pressure 130/91 H 130/91 H 133/66 H Blood Pressure Mean 104 104 88 Pulse Ox 95 90 Oxygen Delivery Method Nasal Cannula Oxygen Flow Rate (L/min) 2 06/07/24 22:35 06/07/24 23:00 06/07/24 23:05 Temperature 97.5 F L Temperature Source Temporal Pulse Rate 106 H Respiratory Rate 20 H Respiratory Effort Blood Pressure 134/100 H Blood Pressure Mean 112 Pulse Ox 92 92 Oxygen Delivery Method Nasal Cannula High Flow Oxygen Flow Rate (L/min) 3 6 MDM MDM MDM Narrative Medical decision making narrative: HISTORY OF PRESENT ILLNESS: 83-year-old male with past medical history of Parkinson's disease, DVT, hyperlipidemia, hypertension, right bundle branch block status post pacemaker, status post CABG, status post stent presents with shortness of breath. He states he has been experiencing shortness of breath for a week. He further states he feels very weak diffusely. States he is having difficulty ambulating. Notes he gets really bad shortness of breath with just mild ambulation of only 50 feet. Denies lower extremity edema, unilateral leg swelling. Endorse history of DVT but denies any other VTE risk factors. Denies any chest pain. Denies any cough fever chills. Denies any sick contacts. Denies any bleeding diathesis. REVIEW OF SYSTEMS: Pertinent positives: Shortness of breath Pertinent negatives: Chest pain, vomiting PHYSICAL EXAM: Nursing triage notes reviewed, Vital signs reviewed Constitutional: please see mdm HENT: MMM Eyes: Pupils equal round and reactive to light, Extraocular muscles intact Neck: No stridor, no JVD, full neck ROM Lungs: Clear to auscultation, No wheezing or rales. No increased work of breathing, no conversational dyspnea, no accessory muscle use, no nasal flaring. No respiratory distress noted Heart: Regular rate and rhythm, No murmurs, No rubs and No gallops, 2+ distal pulses (radial, femoral, posterior tibial) in all extremities Abdomen: Soft, there is no tenderness, rigidity, rebound or guarding, no obvious peritoneal signs, no palpable pulsatile abdominal masses, no auscultated abdominal bruit : No CVAT Extremities: No edema Neuro: No focal neurological deficits, cranial nerves II through XII intact, 5/5 strength in all extremities. Intact sensation to light touch in all extremities, 2+ reflexes bilateral patella tendons. Normal gait. No ataxia. Skin: No rash or lesions noted MEDICAL DECISION MAKING: Chief Complaint: Shortness of breath External records reviewed: Reviewed prior pacemaker report from May 2024. Showed normal sinus rhythm, 0 atrial high rate episodes detected, 0 ventricular high rate episodes detected Factors affecting care: As per HPI Social determinants of health: none History obtained from others: Consults: Internal medicine [facility] Narrative: Patient was initially tachycardic with a rate of 115, otherwise comfortable appearing, no respiratory distress. No indication for BiPAP, and IV or intubation at this time. I considered the following differential diagnosis: Pneumonia, anemia, electrolyte disturbance, ACS, heart failure, PE I obtained a broad lab and imaging workup to further elucidate etiology the patient complaint. Given history of DVT, hypoxia and clear lungs I was concerned about PE so obtain a CTA of the chest. ALL IMAGES (IF OBTAINED) HAVE BEEN PERSONALLY REVIEWED AND INTERPRETED BY MYSELF. EKG with sinus tachycardia rate of 105, normal axis, prolonged QT interval, right bundle branch block, no STEMI. When compared to prior EKG from 2020 no significant changes. High-sensitivity troponin is negative, no evidence of myocardial ischemia CBC without leukocytosis, severe anemia, no thrombocytopenia. BMP without evidence of significant electrolyte abnormalities, no anion gap, no acute kidney injury. CT of the chest shows evidence of acute PE with signs of right heart strain I start the patient heparin. Made the patient to the PCU under Dr. Jackson. The patient and/or family, caregivers express understanding. The patient and/or family, caregivers agrees with the plan. Shared decision making: I will have a discussion with the patient and or visitors regarding risk/benefits of further testing or admission. They will be made aware of of the risk/benefits inherent in this decision they will be given the opportunity to voice understanding. Total critical care time today provided was at least 35 minutes. This excludes separately billable procedures. Critical care time (if documented) is secondary to the patient having high probability of clinically significant/life threatening deterioration in the patient's condition which required my urgent intervention. Impression: 1. Dyspnea 2. Hypoxia 3. Acute pulmonary embolism Dispo: Admit to PCU This note was generated with Canatu dictation software. It may contain incorrect words, spelling, and punctuation that were not noted in review of the chart prior to signing. Lab Data Labs: Laboratory Results - last 24 hr 06/07/24 19:15 WBC 10.8 RBC 5.07 Hgb 17.4 H Hct 51.2 MCV 101.0 H MCH 34.3 H MCHC 34.0 RDW Std Deviation 46.6 H RDW Coeff of Matt 12.5 Plt Count 231 MPV 9.4 Immature Gran % (Auto) 0.200 Neut % (Auto) 56.9 Lymph % (Auto) 32.9 Noble % (Auto) 8.1 Eos % (Auto) 1.5 Baso % (Auto) 0.4 Absolute Neuts (auto) 6.2 Absolute Lymphs (auto) 3.55 Nucleated RBC % 0 PT 13.8 INR 1.1 APTT 28.7 Sodium 138 Potassium 4.5 Chloride 105 Carbon Dioxide 29.0 Anion Gap 4 L BUN 15 Creatinine 1.26 Est GFR (MDRD) Af Amer 71 Est GFR (MDRD) Non-Af 58 L BUN/Creatinine Ratio 11.9 Glucose 141 H Calcium 10.6 H Troponin I High Sens 22 B-Natriuretic Peptide 32.5 Radiography Diagnostic Testing: Clinical Impression(s) from Imaging Studies Chest CTA 06/07/24 20:58 IMPRESSION: Large bilateral pulmonary emboli with evidence of right heart strain. Mild bilateral peribronchial thickening as can be seen with underlying bronchitis bronchiolitis. Right posterior lateral upper lobe opacity likely representing atelectasis. Short interval follow-up CT may be obtained as clinically indicated to exclude infarct. Subacute to chronic anterior compression deformity of T12, new compared with February 09, 2018 N.B. : The above Results were Read Back by Axel Alemida MD to Ashvin Matthews DO, and understanding confirmed on 06/07/2024 23:09:31 (ET). Electronically Signed: Axel Almeida MD at 23:18 EDT , ADDENDUM: 06/07/24 2325 IMPRESSION: Large bilateral pulmonary emboli with evidence of right heart strain. Mild bilateral peribronchial thickening as can be seen with underlying bronchitis bronchiolitis. Right posterior lateral upper lobe opacity likely representing atelectasis. Short interval follow-up CT may be obtained as clinically indicated to exclude infarct. Subacute to chronic anterior compression deformity of T12, new compared with February 09, 2018 N.B. : The above Results were Read Back by Axel Almeida MD to Ashvin Matthews DO, and understanding confirmed on 06/07/2024 23:09:31 (ET). Electronically Signed: Axel Almeida MD at 23:18 EDT , Discharge Plan Triage Chief Complaint: Shortness of Breath ED Provider: Ashvin Matthews Dx/Rx/DC Orders Prescriptions: No Action multivitamin tablet 1 tab PO QDAY calcium carbonate [Calcium 600] 600 mg calcium (1,500 mg) tablet 600 mg PO QDAY pravastatin 40 mg tablet 40 mg PO QDAY aspirin 81 mg tablet,delayed release (DR/EC) 162 mg PO QDAY nitroglycerin 0.4 mg tablet, sublingual 0.4 mg SUBLINGUAL Q5M PRN (Reason: chest pain) Qty: 25 1RF Rx Instructions: until response; do not exceed 3 doses per event glipizide 5 mg tablet 5 mg PO DAILY Patient Comments: TAKE ONE TABLET BY MOUTH EVERY DAY metformin 500 mg tablet extended release 24hr 500 mg PO BID Patient Comments: TAKE ONE TABLET BY MOUTH TWICE DAILY lisinopril 5 mg tablet 5 mg PO DAILY Qty: 90 3RF carvedilol 6.25 mg tablet 6.25 mg PO BID Qty: 180 3RF Rx Instructions: must administer with a meal/food Primary Care Provider: Hector Roberts Referrals: Hector Roberts DO [Primary Care Provider] - Print Language: Korean
--- NOTE | 2024-06-07 20:58 | CT_ITS ---
STUDY: CTA CHEST REASON FOR EXAM: Male, 83 years old. SOB, hypoxia RADIATION DOSAGE (If Supplied By Facility): CTDIvol = ( 11.70 ) mGy, DLP = ( 433.43 ) mGycm TECHNIQUE: The examination was performed with the intravenous administration of IV 100mL Isovue-370. Post-processing of the angiographic images was performed, with multiplanar reformation and 3D reconstruction. Individualized dose optimization techniques were used for this CT. COMPARISON: Chest radiograph February 09, 2018. FINDINGS: Pulmonary arteries are well opacified. Acute large pulmonary embolus right main pulmonary artery extending into upper middle and lower lobar arteries, anterior and apical right upper lobe segments, and diffuse throughout the right lower lobe segments. Left distal main pulmonary artery embolus extending into upper and lower lobar arteries, and throughout the left anterior and apical segments and left anterior and posterior lower lobe segments Aortic atherosclerosis without hyperplasia or dissection. No Global cardiomegaly. Abnormal RV LV ratio 1.2 with flattening of the interventricular septum. No pericardial effusion. Left chest cardiac pacer noted. Moderate [place] vessel calcified coronary atherosclerosis. Prior Coronary bypass noted. No mediastinal adenopathy. Subcentimeter hilar hilar lymph nodes are present, likely reactive. Unremarkable esophagus. No endobronchial lesion. Mild bilateral peribronchial thickening. Lateral posterior right upper lobe somewhat linear opacity, likely atelectasis no other consolidation. No effusion. No pneumothorax. T12 subacute to chronic anterior compression fracture with sclerosis, new compared with Feb 09 2018, with smooth chronic mild retropulsion of the superior endplate causing minimal spinal canal narrowing, and 50% anterior vertebral height loss. Sternotomy wires noted. Normal visualized upper abdomen. CT/CTA Chest W/WO Contrast IMPRESSION: Large bilateral pulmonary emboli with evidence of right heart strain. Mild bilateral peribronchial thickening as can be seen with underlying bronchitis bronchiolitis. Right posterior lateral upper lobe opacity likely representing atelectasis. Short interval follow-up CT may be obtained as clinically indicated to exclude infarct. Subacute to chronic anterior compression deformity of T12, new compared with February 09, 2018 N.B. : The above Results were Read Back by Axel Almeida MD to Ashvin Matthews DO, and understanding confirmed on 06/07/2024 23:09:31 (ET). Electronically Signed: Axel Almeida MD at 23:18 EDT ,
[2024-06-07 21:55] LABS: BNP,B-Type NATRIURETIC PEPTIDE 32.5 pg/mL (0-100)
[2024-06-07 23:28] LABS: International Normalized Ratio 1.1; Prothrombin Time (Protime)PT. 13.8 SECONDS (11.7-14.9)
[2024-06-07 23:29] LABS: Partial Thromboplast Time 28.7 Seconds (24.1-36.2)
[2024-06-07] MEDS: Heparin Injection (Vial) 5,000 UNIT/ML VIAL IV (23:46)
[2024-06-07] MEDS: HEPARIN/D5w 25,000 UNITS 25,000 UNITS/250 ML IV.SOLN. 9 UNITS CONT INF (23:48)
[2024-06-08] VITALS (8 sets, daily range): BP systolic 101–142; BP diastolic 59–91; PULSE 89–108; RESP 16–18; TEMP 36.6–36.8; O2SAT 91–98; BMI 22.5
--- NOTE | 2024-06-08 00:58 | PCM.HP.STD ---
[facility] - General General Date of Admission: 06/08/24 Date of Service: 06/08/24 Chief Complaint: Shortness of breath HPI Narrative FRANK MUSTAFA, is a 83 M who presents to the emergency room with chief complaint of shortness of breath. Patient has significant past medical history of Parkinson disease, DVT hyperlipidemia hypertension and right bundle branch block with a history of pacemaker, status post CABG and cardiac stenting. He was last diagnosed with DVT 2 years ago and placed on Xarelto at that time. Over the last week or 2 patient has admittedly become more short of breath with exertion. He denies any lower extremity pain or leg swelling or other symptoms of DVT at this time. He denies any chest pain, fevers or chills, nausea vomiting or diarrhea. CT scan shows large bilateral pulmonary emboli with right heart strain. Patient will be admitted to progressive care unit and anticoagulated appropriately. [facility] Medical History (Updated 06/08/24 @ 01:[address] 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 Paresthesia Osteoarthritis Hyperlipidemia Home Medications ?Medication ?Instructions ?Recorded ?Last Taken ?Type calcium carbonate (Calcium 600) 600 mg PO QDAY 02/17/18 Unknown History pravastatin 40 mg tablet 40 mg PO QDAY 02/17/18 Unknown History multivitamin 1 tab PO QDAY 02/20/18 Unknown History nitroglycerin 0.4 mg sublingual 0.4 mg sublingual Q5M PRN chest 01/10/20 Unknown Rx tablet pain #25 tabs glipizide 5 mg tablet 5 mg PO DAILY 01/21/22 Unknown History aspirin 81 mg tablet,delayed 162 mg PO QDAY 07/23/22 Unknown History release lisinopril 5 mg tablet 5 mg PO DAILY #90 tabs 09/20/22 Unknown Rx carvedilol 6.25 mg tablet 6.25 mg PO BID #180 tabs 08/11/23 Unknown Rx metformin 500 mg tablet,extended 500 mg PO BID 09/19/23 Unknown History release 24hr (osmotic) Allergy/AdvReac Type Severity Reaction Status Date / Time No Known Allergies Allergy Verified 06/07/24 17:47 Family History Brother COPD (chronic obstructive pulmonary disease) Sister History of DVT (deep vein thrombosis) Brother COPD (chronic obstructive pulmonary disease) Father COPD (chronic obstructive pulmonary disease) Surgical History History of laparoscopic cholecystectomy (~09/2018) History of local excision of skin lesion Hx of appendectomy Aortocoronary bypass status (~04/05/14) Presence of stent in coronary artery (~05/04/14) Postsurgical percutaneous transluminal coronary angioplasty (PTCA) status Social History Smoking Status: Former smoker how long ago did patient quit smokin + years ago alcohol intake: never substance use type: does not use caffeine: Yes Type: coffee Number of servings: 3 ROS Constitutional Constitutional: Reports fatigue; Denies chills or fever(s) Eyes Eyes: Denies change in vision ENT HEENT: Denies abnormal hearing Cardiovascular Cardiovascular: Reports chest pain; Denies syncope Respiratory/Chest Respiratory/Chest: Reports shortness of breath at rest and shortness of breath with exertion Gastrointestinal Gastrointestinal: Denies abdominal pain, nausea or vomiting Genitourinary Genitourinary: Denies dysuria Musculoskeletal Musculoskeletal: Denies back pain Integumentary Integumentary: Denies dry skin Neurologic Neurologic: Denies abnormal gait Psychiatric Psychiatric: Denies anxiety Endocrine Endocrinology: Denies change in body appearance Vital Signs Vital Signs Vital Signs: 06/07/24 17:47 06/07/24 19:46 06/07/24 19:48 Temperature 97.2 F L 98.4 F Temperature Source Temporal Temporal Pulse Rate 115 H 110 H Respiratory Rate 20 H 22 H Respiratory Effort Blood Pressure 118/105 H 125/79 H 125/79 H Blood Pressure Mean 109 94 94 Pulse Ox 93 87 Oxygen Delivery Method Room Air Nasal Cannula Oxygen Flow Rate (L/min) 3 06/07/24 20:26 06/07/24 20:30 06/07/24 20:31 Temperature Temperature Source Pulse Rate Respiratory Rate Respiratory Effort Short of Breath Blood Pressure Blood Pressure Mean Pulse Ox 90 Oxygen Delivery Method Room Air Nasal Cannula Oxygen Flow Rate (L/min) 3 06/07/24 21:00 06/07/24 21:00 06/07/24 22:31 Temperature 97.8 F 97.9 F Temperature Source Temporal Temporal Pulse Rate 105 H 106 H Respiratory Rate 16 20 H Respiratory Effort Blood Pressure 130/91 H 130/91 H 133/66 H Blood Pressure Mean 104 104 88 Pulse Ox 95 90 Oxygen Delivery Method Nasal Cannula Oxygen Flow Rate (L/min) 2 06/07/24 22:35 06/07/24 23:00 06/07/24 23:05 Temperature 97.5 F L Temperature Source Temporal Pulse Rate 106 H Respiratory Rate 20 H Respiratory Effort Blood Pressure 134/100 H Blood Pressure Mean 112 Pulse Ox 92 92 Oxygen Delivery Method Nasal Cannula High Flow Oxygen Flow Rate (L/min) 3 6 06/07/24 23:51 06/08/24 00:00 Temperature 97.6 F L Temperature Source Pulse Rate 103 H 108 H Respiratory Rate 20 H 18 Respiratory Effort Blood Pressure 134/100 H 132/88 H Blood Pressure Mean 111 102 Pulse Ox 91 91 Oxygen Delivery Method High Flow Oxygen Flow Rate (L/min) 5 Weight Weight: 160 lb 11.472 oz Body Mass Index (BMI) 23.0 Physical Exam Const alert, oriented x3 and well nourished General Appearance: cooperative HEENT normocephalic and head/scalp atraumatic Eyes PERRL Neck no lymphadenopathy Lymph Lymphatic: no lymphadenopathy noted Resp normal respiratory effort, normal air movement and clear to auscultation bilaterally Cardio S1 normal heart sound, S2 normal heart sound and no murmurs Rate: tachycardic GI normal to inspection, nondistended, normoactive bowel sounds Extremity normal capillary refill Skin General Skin Exam: no breakdown Neuro no focal motor deficits and no sensory deficits noted Psych thought process normal, cooperative and affect normal Appearance: appropriate Results Lab / Micro Data 06/07/24 19:15 06/07/24 19:15 Labs: Laboratory Results - last 24 hr 06/07/24 19:15: WBC 10.8, RBC 5.07, Hgb 17.4 H, Hct 51.2, MCV 101.0 H, MCH 34.3 H, MCHC 34.0, RDW Std Deviation 46.6 H, RDW Coeff of Matt 12.5, Plt Count 231, MPV 9.4, Immature Gran % (Auto) 0.200, Neut % (Auto) 56.9, Lymph % (Auto) 32.9, [place] % (Auto) 8.1, Eos % (Auto) 1.5, Baso % (Auto) 0.4, Absolute Neuts (auto) 6.2, Absolute Lymphs (auto) 3.55, Nucleated RBC % 0, PT 13.8, INR 1.1, APTT 28.7, Sodium 138, Potassium 4.5, Chloride 105, Carbon Dioxide 29.0, Anion Gap 4 L, BUN 15, Creatinine 1.26, Est GFR (MDRD) Af Amer 71, Est GFR (MDRD) Non-Af 58 L, BUN/Creatinine Ratio 11.9, Glucose 141 H, Calcium 10.6 H, Troponin I High Sens 22, B-Natriuretic Peptide 32.5 Micro: Microbiology 06/07/24 21:05 Mucosa - Nose SARS-CoV-2, Influenza & RSV (PCR) - Final Imaging Radiology Impression Chest CTA 06/07/24 20:58 IMPRESSION: Large bilateral pulmonary emboli with evidence of right heart strain. Mild bilateral peribronchial thickening as can be seen with underlying bronchitis bronchiolitis. Right posterior lateral upper lobe opacity likely representing atelectasis. Short interval follow-up CT may be obtained as clinically indicated to exclude infarct. Subacute to chronic anterior compression deformity of T12, new compared with February 09, 2018 N.B. : The above Results were Read Back by Axel Almeida MD to Ashvin Matthews DO, and understanding confirmed on 06/07/2024 23:09:31 (ET). Electronically Signed: Axel Almeida MD at 23:18 EDT , ADDENDUM: 06/07/24 [id number] IMPRESSION: Large bilateral pulmonary emboli with evidence of right heart strain. Mild bilateral peribronchial thickening as can be seen with underlying bronchitis bronchiolitis. Right posterior lateral upper lobe opacity likely representing atelectasis. Short interval follow-up CT may be obtained as clinically indicated to exclude infarct. Subacute to chronic anterior compression deformity of T12, new compared with February 09, 2018 N.B. : The above Results were Read Back by Axel Almeida MD to Ashvin Matthews DO, and understanding confirmed on 06/07/2024 23:09:31 (ET). Electronically Signed: Axel Almeida MD at 23:18 EDT , Assessment & Plan Assessment/Plan (1) Parkinson's disease: (2) Pure hypercholesterolemia: (3) Essential hypertension: (4) Presence of permanent cardiac pacemaker: (5) Pulmonary embolism: PLAN: Plan 1 bilateral pulmonary embolism with right heart strain?admit patient to progressive care unit, heparin by weight protocol drip and can consider transitioning to Eliquis or Xarelto as an outpatient, continue oxygen supportive therapy and monitor for stability. Repeat CBC BMP in the a.m. 2. Parkinson's disease?continue routine home medications 3. Hypertension?continue blood pressure medications 4. DVT prophylaxis?patient will already be heparinized Charges/Coding Visit Charges Inpatient E&M: 11520 Init Hosp L2
--- NOTE | 2024-06-08 02:38 | ECHOD_ITS ---
Reason For Study: PULMONARY EMBOLISM Procedure This was a 2D Doppler, Color Flow transthoracic echocardiogram. The study was technically difficult. Exam performed portable in patient room. Left Ventricle Normal left ventricle. The left ventricular ejection fraction is 70 %. No regional wall motion abnormalities noted. Infero-Basal: Akinetic. Right Ventricle Normal RV size. ICD or pacer leads identified within the right ventricle. Normal systolic function. Atria Normal left atrium. Normal right atrium. Mitral Valve Normal mitral valve. Tricuspid Valve Normal tricuspid valve. Mild (1+) tricuspid valve insufficiency. Pulmonary artery systolic pressure is 35 mmHg. Aortic Valve Trisinus/trileaflet aortic valve. Normal aortic valve. Pulmonic Valve Normal pulmonic valve. Great Vessels Normal aortic root. The pulmonary artery is normal size. Normal inferior vena cava. Pericardium/Pleural No pericardial effusion. MMode/2D Measurements & Calculations LVIDd: 3.7 cm IVSd: 1.3 cm LVOT diam: 2.4 cm LVIDs: 2.3 cm LVPWd: 0.99 cm LVOT area: 4.5 cm2 RVDd: 3.4 cm FS: 38.4 % Ao root diam: 3.3 cm LAV(MOD-bp): 21.6 ml LVAd ap4: 17.6 cm2 LAV(MOD-bp) Indexed: 11.5 ml/m2 LVLd ap4: 7.3 cm LAV(MOD-sp2): 30.0 ml EDV(MOD-sp4): 35.6 ml LAV(MOD-sp4): 14.9 ml EDV(sp4-el): 36.1 ml LVAs ap4: 8.3 cm2 LVLs ap4: 6.1 cm ESV(MOD-sp4): 10.0 ml ESV(sp4-el): 9.7 ml EF(MOD-sp4): 72.0 % EF(sp4-el): 73.1 % LVAd ap2: 16.6 cm2 SV(MOD-sp4): 25.7 ml SV(MOD-sp2): 20.3 ml LVLd ap2: 7.4 cm EDV(MOD-sp2): 31.4 ml EDV(sp2-el): 31.4 ml LVAs ap2: 8.7 cm2 LVLs ap2: 6.2 cm ESV(MOD-sp2): 11.2 ml ESV(sp2-el): 10.2 ml EF(MOD-sp2): 64.5 % SV(sp4-el): 26.4 ml LA dimension(2D): 2.4 cm LA A4 area: 9.2 cm2 RA A4 area: 9.5 cm2 TAPSE: 0.84 cm Doppler Measurements & Calculations Lat Peak E' Deejay: 8.1 cm/sec Med Peak E' Deejay: 4.6 cm/sec Ao V2 max: 94.3 cm/sec Ao max P.6 mmHg Ao V2 mean: 76.2 cm/sec Ao mean P.5 mmHg Ao V2 VTI: 16.3 cm AV (velocity ratio): 0.72 COLLEEN(I,D): 3.2 cm2 COLLEEN(V,D): 3.8 cm2 LV V1 max: 81.2 cm/sec SV(LVOT): 52.0 ml PA V2 max: 42.4 cm/sec LV V1 max P.6 mmHg PA max PG (full): 0.17 mmHg LV V1 mean P.5 mmHg LV V1 mean: 57.6 cm/sec LV V1 VTI: 11.7 cm TR max deejay: 284.7 cm/sec TR max P.4 mmHg ECHO/Echo Complete Interpretation Summary The left ventricular ejection fraction is 70 %. Normal left ventricle. Normal RV size. Normal systolic function. Pulmonary artery systolic pressure is 35 mmHg. Ordering Physician: Gregg Jackson Performed By: Radha Martinez RDCS and Student
[2024-06-08 06:59] LABS: Absolute Lymphocyte Count 3.54 X10^3/uL (0.83-4.51); Absolute Neutrophil Count 5.9 X10^3/uL (2.0-7.7); Basophil# 0.05 X10^3/uL; Basophil% 0.5 % (0-1); Hematocrit 49.1 % (40-54); Hemoglobin 17.1 g/dL (13.0-16.5); Lymphocyte # 3.54 X10^3/ul (0.83-4.51); Lymphocyte % 33.9 % (19-41); Mean Corp Hgb Conc 34.8 g/dL (32-36); Mean Corpuscular Hgb 34.9 pg (27.0-32.0); Mean Corpuscular Volume 100.2 fL (80-94); Mean Platelet Vol. 9.8 fl (6.2-12.0); Monocyte# 0.82 X10^3/uL; Monocyte% 7.9 % (0-10); NRBC Flagged by Analyzer 0 % (0-5); Neutrophil % 56.4 % (47-70); Platelet Count 195 K/mm3 (150-450); RBC Distribution Width CV 12.4 % (11.6-14.6); RBC Distribution Width SD 46.2 fl (35.1-43.9); White Blood Count 10.4 K/mm3 (4.4-11.0)
[2024-06-08 07:05] LABS: Partial Thromboplast Time 70.1 Seconds (24.1-36.2)
--- NOTE | 2024-06-08 07:21 | PN.HOSP_ITS ---
Reason for Visit Reason for Visit: Shortness of breath Subjective Subjective Mr. Blankenship is an 83-year-old white male who presented to the emergency department at [facility] on 06/07/2024 with a chief complaint of shortness of breath. He reported he had been progressively worsening over about a week and he felt diffusely weak as well. He has been having difficulty ambulating due to the weakness and shortness of breath. He complained of mid shortness of breath just ambulating after about 50 feet. He denied any lower extremity edema and has a history of DVT remotely. He denies any sick contacts, chest pain, cough, fever, or chills. Vital signs on presentation showed a temperature of 97.2, heart rate 115, blood pressure 118/105, respiratory rate was 20-22 and oxygen saturations were initially 93% on room air however the next documentation has him at 87% on 3 L so I am unsure exactly what his FiO2 requirements were and what his room air pulse ox was on admission. His CBC had a normal white count however he did have a significant elevated hemoglobin at 17.4 which he has had previously. Platelet count was normal and there was no left shift. Coags were normal. His CMP was unremarkable other than some mild hyperglycemia with a blood sugar of 141 and hypercalcemia with a calcium of 10.6. Troponin was normal at [address] was 32[address] CT of the chest showed large bilateral pulmonary emboli with evidence of right heart strain, mild bilateral peribronchial thickening and right posterior lateral upper lobe opacity that was felt to be atelectasis but could represent infarct. There is also a subacute to chronic anterior compression deformity of T12 that was new compared to previous imaging from 2018. Heparin drip was initiated by the emergency department and continued on admission. He is currently requiring 6 L of high flow nasal cannula to maintain sats greater than 88% with a current saturation at 92%. Patient states he feels okay until he exerts himself and he experiences significant shortness of breath. Denies any shortness of breath at rest. Denies any chest pain. Objective Data Objective Data Vital Signs: Vital Signs Temp Pulse Resp BP Pulse Ox O2 Del Method O2 Flow Rate 98.2 F 90 18 142/91 H 92 High Flow 6 06/08/24 06:00 06/08/24 06:00 06/08/24 06:00 06/08/24 06:00 06/08/24 06:00 06/08/24 06:00 06/08/24 06:00 Oxygen Flow Rate (L/min) 6 Oxygen Delivery Method High Flow Weight: 71.3 kg Body Mass Index (BMI) 22.5 Intake & Output: Intake and Output for Last 24 Hours 06/06/24 06/07/24 06/08/24 23:59 23:59 23:59 Intake Total 100 / 100 Output Total 210 / 210 Balance -110 / -110 Lab / Micro Data 06/08/24 05:44 06/08/24 05:44 Labs: Laboratory Results - last 24 hr 06/07/24 19:15: WBC 10.8, RBC 5.07, Hgb 17.4 H, Hct 51.2, MCV 101.0 H, MCH 34.3 H, MCHC 34.0, RDW Std Deviation 46.6 H, RDW Coeff of Matt 12.5, Plt Count 231, MPV 9.4, Immature Gran % (Auto) 0.200, Neut % (Auto) 56.9, Lymph % (Auto) 32.9, [place] % (Auto) 8.1, Eos % (Auto) 1.5, Baso % (Auto) 0.4, Absolute Neuts (auto) 6.2, Absolute Lymphs (auto) 3.55, Nucleated RBC % 0, PT 13.8, INR 1.1, APTT 28.7, Sodium 138, Potassium 4.5, Chloride 105, Carbon Dioxide 29.0, Anion Gap 4 L, BUN 15, Creatinine 1.26, Est GFR (MDRD) Af Amer 71, Est GFR (MDRD) Non-Af 58 L, BUN/Creatinine Ratio 11.9, Glucose 141 H, Calcium 10.6 H, Troponin I High Sens 22, B-Natriuretic Peptide 32.5 06/08/24 05:44: WBC 10.4, RBC 4.90, Hgb 17.1 H, Hct 49.1, MCV 100.2 H, MCH 34.9 H, MCHC 34.8, RDW Std Deviation 46.2 H, RDW Coeff of Matt 12.4, Plt Count 195, MPV 9.8, Immature Gran % (Auto) 0.300, Neut % (Auto) 56.4, Lymph % (Auto) 33.9, [place] % (Auto) 7.9, Eos % (Auto) 1.0, Baso % (Auto) 0.5, Absolute Neuts (auto) 5.9, Absolute Lymphs (auto) 3.54, Nucleated RBC % 0, APTT 70.1 H Micro: Microbiology 06/07/24 21:05 Mucosa - Nose SARS-CoV-2, Influenza & RSV (PCR) - Final Radiography Diagnostic Testing: Radiology Impression Chest CTA 06/07/24 20:58 IMPRESSION: Large bilateral pulmonary emboli with evidence of right heart strain. Mild bilateral peribronchial thickening as can be seen with underlying bronchitis bronchiolitis. Right posterior lateral upper lobe opacity likely representing atelectasis. Short interval follow-up CT may be obtained as clinically indicated to exclude infarct. Subacute to chronic anterior compression deformity of T12, new compared with February 09, 2018 N.B. : The above Results were Read Back by Axel Almeida MD to Ashvin Matthews DO, and understanding confirmed on 06/07/2024 23:09:31 (ET). Electronically Signed: Axel Almeida MD at 23:18 EDT , ADDENDUM: 06/07/24 2325 IMPRESSION: Large bilateral pulmonary emboli with evidence of right heart strain. Mild bilateral peribronchial thickening as can be seen with underlying bronchitis bronchiolitis. Right posterior lateral upper lobe opacity likely representing atelectasis. Short interval follow-up CT may be obtained as clinically indicated to exclude infarct. Subacute to chronic anterior compression deformity of T12, new compared with February 09, 2018 N.B. : The above Results were Read Back by Axel Almeida MD to Ashvin Matthews DO, and understanding confirmed on 06/07/2024 23:09:31 (ET). Electronically Signed: Axel Almeida MD at 23:18 EDT , Physical Exam Const alert, oriented x3, no apparent distress and well nourished Constitutional Narrative: Elderly, white male, lying in bed, at bedside, patient currently appears comfortable on 6 L nasal cannula with high flow, does not appear toxic HEENT head/scalp atraumatic and moist oral mucous membranes HEENT Narrative: No thrush, Mallampati 2 Head and Scalp: normocephalic Resp normal respiratory effort, no retractions, no use of accessory muscles and clear to auscultation bilaterally Auscultation: Negative for rales, rhonchi or wheezes Cardio regular rhythm, S1 normal heart sound, S2 normal heart sound, no murmurs, no rub, no gallops and no clicks Cardio Narrative: Mild tachycardia GI normal to inspection, nondistended, normoactive bowel sounds, soft to palpation and non-tender Extremity no clubbing, cyanosis or edema Extremity Narrative: Pedal and radial pulses are 2+ Neuro moves all extremities and no focal motor deficits Neuro Narrative: Slight bradykinesia noted Speech: speech normal Psych affect normal Psych Narrative: Very pleasant, eye contact good, patient interacts appropriately Assessment & Plan Assessment/Plan (1) Pulmonary embolism: PLAN: Plan Acute hypoxic respiratory failure secondary to large bilateral pulmonary emboli -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 -Initial troponin and BNP unremarkable however RV strain noted on CT scan -Vascular surgery consulted -pulmonary consulted per Vasc Surg request -Echocardiogram is pending -Continue heparin drip for now but will plan to transition to Eliquis 10 mg twice daily x 7 days then 5 mg twice daily after I obtain vascular surgery input -Would recommend outpatient hematology follow-up after discharge -Patient currently requiring 6 L of heated high flow nasal cannula -Wean as able -Patient may need to go home with oxygen and will assess with ambulatory pulse ox prior to discharge Hypercalcemia -10.6 on admission with repeat pending -Discontinue home calcium supplementation -If repeat is elevated will assess further with vitamin D and PTH level -It does not appear that he has been hyper calcium and previously Erythrocytosis -He has had this previously and it has fluctuated -Platelet count is normal -Continue to monitor -Patient does have history of tobacco abuse and I do question whether or not he has some untreated COPD and possibly chronic hypoxia leading to this -Will likely need outpatient hematology follow-up after discharge History of DVT -2020 -Anticoagulation as noted above -The patient was not anticoagulated at the time of new PE CAD/HTN/HPL -PCI to the Distal RCA and PTCA/Stent x2 to Mid-Proximal RCA 05/04/14 -CABG x5- BYERS to LAD, SVG to Diagonal, SVG to OM1, SVG to OM3, SVG to RCA 04/05/14 -Continue home aspirin but reduce dose from 162 mg to 81 mg -Continue home lisinopril -Continue home carvedilol -Patient was to be on pravastatin but he is currently not taking this however patient should be on statin so we will continue hospitalized reinitiated at discharge Third-degree heart block -Patient has permanent pacemaker DM-2 -Hold metformin -Hold glipizide -Add SSI -Accu-Cheks ordered -Change insulin diet from cardiac to cardiac carb controlled DVT prophylaxis -Patient is currently fully anticoagulated with heparin drip and will be transitioning to Eliquis Charges/Coding Visit Charges Inpatient E&M: 18038 Subs Hosp L2
[2024-06-08 08:00] LABS: Anion Gap 10 (5-15); BUN 15 mg/dL (7-18); BUN/Creat Ratio 16.8 RATIO (10-20); Calcium,Total 9.9 mg/dL (8.5-10.1); Chloride 105 mmol/L (98-107); Creatinine, Serum 0.89 mg/dL (0.70-1.30); EST Glomerular Filtration Rate 87 mL/min (>60); Est Glom Filt Rate - Afr Amer 105 mL/min (>60); Estimated Creatinine Clearance 65.65 ml/min; Glucose 164 mg/dL (74-106); Potassium 3.9 mmol/L (3.5-5.1); Sodium Level 137 mmol/L (136-145)
--- NOTE | 2024-06-08 08:38 | EX.PCM.CONCC ---
Assessment & Plan Assessment/Plan (1) Pulmonary embolism: PLAN: Plan RECOMMENDATIONS: 1. Supplemental oxygen to maintain saturations at or above 90%. 2. Continue weight-based heparin infusion. 3. Await results of echocardiogram. 4. We will coordinate care with vascular surgery regarding potential thrombectomy once echocardiogram results are known. 5. Encourage incentive spirometer use and mobilize patient as tolerated. IMPRESSIONS: 1. Shortness of breath with hypoxemia in the setting of bilateral pulmonary emboli and right heart strain CTA chest demonstrated bilateral pulmonary emboli with a greater involvement in the mid to distal right main pulmonary artery with evidence of right heart strain. The patient is hemodynamically stable on 6 L/min of supplemental oxygen. I would recommend that we obtain an echocardiogram prior to considering potential thrombectomy. If the patient has significant RV dysfunction and/or pulmonary hypertension, then I would consider possible thrombectomy. Otherwise, I would plan to continue the patient on a weight-based heparin infusion, with eventual transition to either Eliquis or Xarelto, depending on insurance coverage. Ultimately, given the patient's history of VTE with recurrence, would recommend lifelong anticoagulation. 2. History of coronary artery disease status post CABG/unspecified polycythemia/hypertension/hyperlipidemia/diabetes mellitus Complicates care, management, recovery and prognosis. Continue home medications as indicated. This note was generated with [employer] dictation software. It may contain incorrect words, spelling, and punctuation that were not noted in checking the note before signing. HPI Consult Data Date of Consult: 06/08/24 HPI Narrative Reason for Consultation: Bilateral pulmonary emboli HPI Narrative: The patient is an 83-year-old male, with a history as outlined below, who presented to the emergency department on June 07 with reported shortness of breath. The patient has a known history of coronary artery disease status post CABG along with paroxysmal atrial fibrillation status post permanent pacemaker placement, hypertension and hyperlipidemia. In addition, the patient reported that he was diagnosed with a DVT multiple years ago and was treated for approximately 1 year with Xarelto. The exact circumstances regarding the development of his DVT are not entirely clear. Therefore, it is difficult to say whether the DVT was provoked or unprovoked. The patient denied any personal or family history of any hypercoagulable conditions. He denies any recent prolonged travel. He does have a remote smoking history. On presentation to the emergency department, the patient was documented to be afebrile and hemodynamically stable. Laboratory evaluation revealed a normal white blood cell count. Patient did have evidence of polycythemia with a hemoglobin of 17.4 g/dL. This appears chronic in nature. Chemistry profile was unremarkable. Troponin and BNP were within normal limits. CTA chest demonstrated bilateral pulmonary emboli, with greater involvement in the right main pulmonary artery extending into the lobar arteries. There was evidence of heart strain with an RV/LV ratio of 1.2. The patient was subsequently placed on a weight-based heparin infusion and admitted to the progressive care unit, where he is currently requiring 6 L/min of supplemental oxygen. [facility] Medical History Parkinson's disease (~2022) Deep vein thrombosis of right lower extremity (~11/03/19) Pure hypercholesterolemia Essential hypertension Chest pain Abnormal stress test Atherosclerosis of coronary artery bypass graft without angina pectoris History of third degree heart block RBBB (right bundle branch block) Presence of permanent cardiac pacemaker (~05/06/14) Atherosclerotic heart disease of [place] coronary artery without angina pectoris Paresthesia Osteoarthritis Hyperlipidemia Home Medications ?Medication ?Instructions ?Recorded ?Last Taken ?Type calcium carbonate (Calcium 600) 600 mg PO QDAY 02/17/18 Unknown History pravastatin 40 mg tablet 40 mg PO QDAY Cholesterol 02/17/18 Unknown History multivitamin 1 tab PO QDAY 02/20/18 Unknown History nitroglycerin 0.4 mg sublingual 0.4 mg sublingual Q5M PRN chest 01/10/20 Unknown Rx tablet pain #25 tabs glipizide 5 mg tablet 5 mg PO DAILY 01/21/22 Unknown History aspirin 81 mg tablet,delayed 162 mg PO QDAY 07/23/22 Unknown History release lisinopril 5 mg tablet 5 mg PO DAILY #90 tabs 09/20/22 Unknown Rx carvedilol 6.25 mg tablet 6.25 mg PO BID #180 tabs 08/11/23 Unknown Rx metformin 500 mg tablet,extended 500 mg PO BID 09/19/23 Unknown History release 24hr (osmotic) Allergy/AdvReac Type Severity Reaction Status Date / Time No Known Allergies Allergy Verified 06/07/24 17:47 Family History Brother COPD (chronic obstructive pulmonary disease) Sister History of DVT (deep vein thrombosis) Brother COPD (chronic obstructive pulmonary disease) Father COPD (chronic obstructive pulmonary disease) Surgical History History of laparoscopic cholecystectomy (~09/2018) History of local excision of skin lesion Hx of appendectomy Aortocoronary bypass status (~04/05/14) Presence of stent in coronary artery (~05/04/14) Postsurgical percutaneous transluminal coronary angioplasty (PTCA) status Social History Smoking Status: Former smoker how long ago did patient quit smokin + years ago alcohol intake: never substance use type: does not use caffeine: Yes Type: coffee Number of servings: 3 ROS ROS Narrative 10 systems were reviewed with pertinent positives as noted in the HPI above. Physical Exam Const alert and no apparent distress General Appearance: cooperative HEENT normocephalic, head/scalp atraumatic and moist oral mucous membranes Eyes PERRL, EOMs intact bilaterally and conjunctivae normal Neck supple General: trachea midline Chest inspection of chest normal Resp normal respiratory effort Auscultation: Negative for rales, rhonchi or wheezes Cardio regular rate and regular rhythm GI normal to inspection, nondistended, normoactive bowel sounds Extremity no clubbing, cyanosis or edema Skin no rashes or lesions noted Neuro CN's II-XII intact bilaterally, moves all extremities and no focal motor deficits Psych cooperative and affect normal Lab / Micro Data 06/08/24 05:44 06/08/24 05:44 Labs: Laboratory Results - last 24 hr 06/07/24 19:15: WBC 10.8, RBC 5.07, Hgb 17.4 H, Hct 51.2, MCV 101.0 H, MCH 34.3 H, MCHC 34.0, RDW Std Deviation 46.6 H, RDW Coeff of Matt 12.5, Plt Count 231, MPV 9.4, Immature Gran % (Auto) 0.200, Neut % (Auto) 56.9, Lymph % (Auto) 32.9, [place] % (Auto) 8.1, Eos % (Auto) 1.5, Baso % (Auto) 0.4, Absolute Neuts (auto) 6.2, Absolute Lymphs (auto) 3.55, Nucleated RBC % 0, PT 13.8, INR 1.1, APTT 28.7, Sodium 138, Potassium 4.5, Chloride 105, Carbon Dioxide 29.0, Anion Gap 4 L, BUN 15, Creatinine 1.26, Est GFR (MDRD) Af Amer 71, Est GFR (MDRD) Non-Af 58 L, BUN/Creatinine Ratio 11.9, Glucose 141 H, Calcium 10.6 H, Troponin I High Sens 22, B-Natriuretic Peptide 32.5 06/08/24 05:44: WBC 10.4, RBC 4.90, Hgb 17.1 H, Hct 49.1, MCV 100.2 H, MCH 34.9 H, MCHC 34.8, RDW Std Deviation 46.2 H, RDW Coeff of Matt 12.4, Plt Count 195, MPV 9.8, Immature Gran % (Auto) 0.300, Neut % (Auto) 56.4, Lymph % (Auto) 33.9, [place] % (Auto) 7.9, Eos % (Auto) 1.0, Baso % (Auto) 0.5, Absolute Neuts (auto) 5.9, Absolute Lymphs (auto) 3.54, Nucleated RBC % 0, APTT 70.1 H, Sodium 137, Potassium 3.9, Chloride 105, Carbon Dioxide 22.0, Anion Gap 10, BUN 15, Creatinine 0.89, Estim Creat Clear Calc 65.65, Est GFR (MDRD) Af Amer 105, Est GFR (MDRD) Non-Af 87, BUN/Creatinine Ratio 16.8, Glucose 164 H, Calcium 9.9 Micro: Microbiology 06/07/24 21:05 Mucosa - Nose SARS-CoV-2, Influenza & RSV (PCR) - Final Imaging Radiology Impression Chest CTA 06/07/24 20:58 IMPRESSION: Large bilateral pulmonary emboli with evidence of right heart strain. Mild bilateral peribronchial thickening as can be seen with underlying bronchitis bronchiolitis. Right posterior lateral upper lobe opacity likely representing atelectasis. Short interval follow-up CT may be obtained as clinically indicated to exclude infarct. Subacute to chronic anterior compression deformity of T12, new compared with February 09, 2018 N.B. : The above Results were Read Back by Axel Almeida MD to Ashvin Matthews DO, and understanding confirmed on 06/07/2024 23:09:31 (ET). Electronically Signed: Axel Almeida MD at 23:18 EDT , ADDENDUM: 06/07/24 [id number] IMPRESSION: Large bilateral pulmonary emboli with evidence of right heart strain. Mild bilateral peribronchial thickening as can be seen with underlying bronchitis bronchiolitis. Right posterior lateral upper lobe opacity likely representing atelectasis. Short interval follow-up CT may be obtained as clinically indicated to exclude infarct. Subacute to chronic anterior compression deformity of T12, new compared with February 09, 2018 N.B. : The above Results were Read Back by Axel Almeida MD to Ashvin Matthews DO, and understanding confirmed on 06/07/2024 23:09:31 (ET). Electronically Signed: Axel Almeida MD at 23:18 EDT , Charges/Coding Visit Charges Inpatient E&M: 59301 Init Hosp L3
[2024-06-08] MEDS: glipiZIDE 5 MG Tablet PO (10:00)
[2024-06-08] MEDS: Calcium Carbonate 500 MG Tablet PO (10:00)
[2024-06-08] MEDS: Multivitamins,Therapeutic Tablet 1 TABLET PO (10:01)
[2024-06-08] MEDS: Lisinopril 5 MG Tablet PO (10:01)
[2024-06-08] MEDS: Carvedilol 6.25 MG Tablet PO ×2 (10:01→18:30)
[2024-06-08] MEDS: Aspirin E.C. 81 MG Tablet PO (10:01)
--- NOTE | 2024-06-08 12:38 | CASEMGMT ---
REGINALD CARUSO Assessment Face to Face with patient for initial transition planning/care coordination assessment. RN SHADY introduced self and role at [facility], pt voices understanding. Pt is A&Ox4 and is resting comfortably in bed and is calm. Care providers, pharmacy, and demographics verified. Admitting dx: BL PE LACE Strata: 1 PCP: Hector Roberts Specialists: Dr. Graham ([facility]). [facility] Preferred Pharmacy: [facility] Insurance: MCR A/B, Cign[employer] Prescription Benefit: Yes LNOK: Sanam Blankenship (W) Living Arrangements: Pt lives with his in a single story home with one step to enter ADLs/IADLs: [place] Transportation: Self, DME: [employer] and supplies. FWW. BP Monitor. Pulse Ox. Cane. Pt is currently requiring additional oxygen. A verbal list of local in-network DME companies provided to the pt at this time. Pt prefers [facility] HHC/SNF: States HH and SNF in 2013 but cannot recall the name of the agency or SNF Pt?s goal: Home with pt Plan: Anticipate eventual DC home. PT is pending. Pt states that it is too early to tell if he will need HHC or OP Tx. CM to follow PT recommendations. CM to follow oxygen requirements. Report given to FACILITIES MAINTENANCE ENGINEER CM. Sam Lozano RN, CM
[2024-06-08] MEDS: Insulin Lispro 100 UNIT/ML INSULN.PEN SC ×2 (13:12→18:30)
[2024-06-08 13:25] LABS: Bedside Glucose 226 mg/dL (74-106)
[2024-06-08 13:40] LABS: Partial Thromboplast Time 51.5 Seconds (24.1-36.2)
[2024-06-08 18:31] LABS: Bedside Glucose 182 mg/dL (74-106)
--- NOTE | 2024-06-08 18:36 | EX.PCM.CON.S ---
Assessment & Plan Assessment/Plan (1) Pulmonary embolism: QUALIFIERS: Pulmonary embolism type: other Chronicity: acute Acute cor pulmonale presence: without acute cor pulmonale Qualified Code(s): I26.99 - Other pulmonary embolism without acute cor pulmonale PLAN: -CTA images reviewed, right pulm artery with significant thrombus burden, RV dilation with ratio >1 -echo with no RV strain, normal PA pressures -trop and BNP normal -normotensive, no tachycardia, some O2 support -given biomarkers, vitals, and echo would not recommend thrombectomy -ok to transition to oral anticoagulation HPI Consult Data Date of Consult: 06/08/24 HPI Narrative HPI Narrative: FRANK MUSTAFA, is a 83 M who presents with SOB and found to have PE. Initial CTA revealed RV strain with RV/LV ratio >1. No recent change in level of activity, does have history of DVT several years ago but does not recall circumstances. Was not on anticoagulation prior to admission. [facility] Medical History Parkinson's disease (~2022) Deep vein thrombosis of right lower extremity (~11/03/19) Pure hypercholesterolemia Essential hypertension Chest pain Abnormal stress test Atherosclerosis of coronary artery bypass graft without angina pectoris History of third degree heart block RBBB (right bundle branch block) Presence of permanent cardiac pacemaker (~05/06/14) Atherosclerotic heart disease of [place] coronary artery without angina pectoris Paresthesia Osteoarthritis Hyperlipidemia Home Medications ?Medication ?Instructions ?Recorded ?Last Taken ?Type calcium carbonate (Calcium 600) 600 mg PO QDAY 02/17/18 Unknown History pravastatin 40 mg tablet 40 mg PO QDAY Cholesterol 02/17/18 Unknown History multivitamin 1 tab PO QDAY 02/20/18 Unknown History nitroglycerin 0.4 mg sublingual 0.4 mg sublingual Q5M PRN chest 01/10/20 Unknown Rx tablet pain #25 tabs glipizide 5 mg tablet 5 mg PO DAILY 01/21/22 Unknown History aspirin 81 mg tablet,delayed 162 mg PO QDAY 07/23/22 Unknown History release lisinopril 5 mg tablet 5 mg PO DAILY #90 tabs 09/20/22 Unknown Rx carvedilol 6.25 mg tablet 6.25 mg PO BID #180 tabs 08/11/23 Unknown Rx metformin 500 mg tablet,extended 500 mg PO BID 09/19/23 Unknown History release 24hr (osmotic) Allergy/AdvReac Type Severity Reaction Status Date / Time No Known Allergies Allergy Verified 06/07/24 17:47 Family History Brother COPD (chronic obstructive pulmonary disease) Sister History of DVT (deep vein thrombosis) Brother COPD (chronic obstructive pulmonary disease) Father COPD (chronic obstructive pulmonary disease) Surgical History History of laparoscopic cholecystectomy (~09/2018) History of local excision of skin lesion Hx of appendectomy Aortocoronary bypass status (~04/05/14) Presence of stent in coronary artery (~05/04/14) Postsurgical percutaneous transluminal coronary angioplasty (PTCA) status Social History Smoking Status: Former smoker how long ago did patient quit smokin + years ago alcohol intake: never substance use type: does not use caffeine: Yes Type: coffee Number of servings: 3 ROS Constitutional Constitutional: Denies chills, fever(s), frequent falls, lethargy or weakness Eyes Eyes: Denies blind spots, change in vision or loss of vision ENT HEENT: Denies bleeding gums, hoarseness or sore throat Cardiovascular Cardiovascular: Denies abdominal pain, bluish discoloration of hand/feet, chest pain with activity, claudication, cold extremities, cyanosis, dyspnea on exertion, erythema on extremities, irregular heart rhythm, leg edema, leg ulcers, numbness in extremities or weakness in extremities Respiratory/Chest Respiratory/Chest: Denies cough, excessive phlegm production, shortness of breath at rest, shortness of breath with exertion or wheezing Gastrointestinal Gastrointestinal: Denies anorexia, change in stool character, constipation, diarrhea, melena or rectal bleeding Genitourinary Genitourinary: Denies dysuria or hematuria Musculoskeletal Musculoskeletal: Denies abnormal gait Integumentary Integumentary: Reports other Details: ; Denies erythema, non-healing lesions or wounds Neurologic Neurologic: Denies abnormal speech, focal weakness, headache(s), loss of vision, numbness, paresthesias or sensory deficit Hematologic/Lymphatic Hematologic/Lymphatic: Denies easy bleeding, easy bruising or lymphadenopathy Physical Exam Const alert, oriented x3, no apparent distress and healthy appearing General Appearance: cooperative; Negative for combative or lethargic Orientation / Consciousness: awake Exam Limitations: no limitations HEENT Head and Scalp: normocephalic and atraumatic Eyes EOMs intact bilaterally General Eye: normal appearance of both eyes Neck full ROM, no lymphadenopathy and thyroid normal General: trachea midline; Negative for lymphadenopathy or tenderness Thyroid: thyroid normal Resp normal respiratory effort and no use of accessory muscles Effort and Inspection: Negative for labored, stridor or audible wheezes Cardio regular rate, regular rhythm and no murmurs Peripheral Pulses: brachial pulses present, radial pulses present, femoral pulses present and popliteal pulses present GI non-tender and non-distended; Negative for hepatosplenomegaly Back/Spine Cervical Spine: cervical ROM normal Extremity full ROM, normal capillary refill and no clubbing, cyanosis or edema Skin no rashes or lesions noted and no wounds Neuro oriented x3, CN's II-XII intact bilaterally, no focal motor deficits and no sensory deficits noted Psych thought process normal, cooperative, affect normal, speech normal and activity/motor behavior normal Lab / Micro Data 06/08/24 05:44 06/08/24 05:44 Labs: Laboratory Results - last 24 hr 06/07/24 19:15: WBC 10.8, RBC 5.07, Hgb 17.4 H, Hct 51.2, MCV 101.0 H, MCH 34.3 H, MCHC 34.0, RDW Std Deviation 46.6 H, RDW Coeff of Matt 12.5, Plt Count 231, MPV 9.4, Immature Gran % (Auto) 0.200, Neut % (Auto) 56.9, Lymph % (Auto) 32.9, [place] % (Auto) 8.1, Eos % (Auto) 1.5, Baso % (Auto) 0.4, Absolute Neuts (auto) 6.2, Absolute Lymphs (auto) 3.55, Nucleated RBC % 0, PT 13.8, INR 1.1, APTT 28.7, Sodium 138, Potassium 4.5, Chloride 105, Carbon Dioxide 29.0, Anion Gap 4 L, BUN 15, Creatinine 1.26, Est GFR (MDRD) Af Amer 71, Est GFR (MDRD) Non-Af 58 L, BUN/Creatinine Ratio 11.9, Glucose 141 H, Calcium 10.6 H, Troponin I High Sens 22, B-Natriuretic Peptide 32.5 06/08/24 05:44: WBC 10.4, RBC 4.90, Hgb 17.1 H, Hct 49.1, MCV 100.2 H, MCH 34.9 H, MCHC 34.8, RDW Std Deviation 46.2 H, RDW Coeff of Matt 12.4, Plt Count 195, MPV 9.8, Immature Gran % (Auto) 0.300, Neut % (Auto) 56.4, Lymph % (Auto) 33.9, [place] % (Auto) 7.9, Eos % (Auto) 1.0, Baso % (Auto) 0.5, Absolute Neuts (auto) 5.9, Absolute Lymphs (auto) 3.54, Nucleated RBC % 0, APTT 70.1 H, Sodium 137, Potassium 3.9, Chloride 105, Carbon Dioxide 22.0, Anion Gap 10, BUN 15, Creatinine 0.89, Estim Creat Clear Calc 65.65, Est GFR (MDRD) Af Amer 105, Est GFR (MDRD) Non-Af 87, BUN/Creatinine Ratio 16.8, Glucose 164 H, Calcium 9.9 06/08/24 11:50: POC Glucose 226 H 06/08/24 13:21: APTT 51.5 H 06/08/24 18:14: POC Glucose 182 H Micro: Microbiology 06/07/24 21:05 Mucosa - Nose SARS-CoV-2, Influenza & RSV (PCR) - Final Imaging Radiology Impression Chest CTA 06/07/24 20:58 IMPRESSION: Large bilateral pulmonary emboli with evidence of right heart strain. Mild bilateral peribronchial thickening as can be seen with underlying bronchitis bronchiolitis. Right posterior lateral upper lobe opacity likely representing atelectasis. Short interval follow-up CT may be obtained as clinically indicated to exclude infarct. Subacute to chronic anterior compression deformity of T12, new compared with February 09, 2018 N.B. : The above Results were Read Back by Axel Almeida MD to Ashvin Matthews DO, and understanding confirmed on 06/07/2024 23:09:31 (ET). Electronically Signed: Axel Almeida MD at 23:18 EDT , ADDENDUM: 06/07/24 [id number] IMPRESSION: Large bilateral pulmonary emboli with evidence of right heart strain. Mild bilateral peribronchial thickening as can be seen with underlying bronchitis bronchiolitis. Right posterior lateral upper lobe opacity likely representing atelectasis. Short interval follow-up CT may be obtained as clinically indicated to exclude infarct. Subacute to chronic anterior compression deformity of T12, new compared with February 09, 2018 N.B. : The above Results were Read Back by Axel Almeida MD to Ashvin Matthews DO, and understanding confirmed on 06/07/2024 23:09:31 (ET). Electronically Signed: Axel Almeida MD at 23:18 EDT , Echocardiogram 06/08/24 02:38 Interpretation Summary The left ventricular ejection fraction is 70 %. Normal left ventricle. Normal RV size. Normal systolic function. Pulmonary artery systolic pressure is 35 mmHg. Ordering Physician: Gregg Jackson Performed By: Radha Martinez RDCS and Student Charges/Coding Visit Charges Inpatient E&M: 05081 Init Hosp L3
[2024-06-08 20:38] LABS: Partial Thromboplast Time 61.3 Seconds (24.1-36.2)
[2024-06-08 22:34] LABS: Bedside Glucose 243 mg/dL (74-106)
[2024-06-09 03:47] LABS: Partial Thromboplast Time 90.6 Seconds (24.1-36.2)
[2024-06-09 03:53] VITALS: BP 104/63; PULSE 81; RESP 18; TEMP 36.2; O2SAT 99
--- NOTE | 2024-06-09 04:06 | NURSING ---
RN called lab @ 0345 for an aPTT drawn @ 0230 that has not been resulted and updated on pt chart.
[2024-06-09] MEDS: HEPARIN/D5w 25,000 UNITS 25,000 UNITS/250 ML IV.SOLN. 8 UNITS CONT INF (04:23)
[2024-06-09] MEDS: Insulin Lispro 100 UNIT/ML INSULN.PEN SC ×3 (06:27→16:22)
[2024-06-09 07:15] LABS: Bedside Glucose 189 mg/dL (74-106)
[2024-06-09 07:27] LABS: Hematocrit 44.9 % (40-54); Hemoglobin 15.6 g/dL (13.0-16.5); Mean Corp Hgb Conc 34.7 g/dL (32-36); Mean Corpuscular Volume 100.7 fL (80-94); Mean Platelet Vol. 9.8 fl (6.2-12.0); Platelet Count 195 K/mm3 (150-450); RBC Distribution Width CV 12.3 % (11.6-14.6); RBC Distribution Width SD 46.5 fl (35.1-43.9); Red Blood Count 4.46 M/mm3 (4.6-6.2); White Blood Count 9.4 K/mm3 (4.4-11.0)
--- NOTE | 2024-06-09 07:34 | PCM.PN.INT ---
Assessment & Plan Assessment/Plan (1) Pulmonary embolism: QUALIFIERS: Acute cor pulmonale presence: without acute cor pulmonale Chronicity: acute Pulmonary embolism type: other Qualified Code(s): I26.99 - Other pulmonary embolism without acute cor pulmonale PLAN: Plan RECOMMENDATIONS: 1. Supplemental oxygen to maintain saturations at or above 90%. 2. Okay from my perspective to transition to oral anticoagulation regimen. Plan for lifelong anticoagulation. 3. Encourage incentive spirometer use and mobilize patient as tolerated. 4. Perform walking oximetry study prior to consideration for discharge home. 5. Will sign off at this time. Please call with any additional questions. IMPRESSIONS: 1. Shortness of breath with hypoxemia in the setting of bilateral pulmonary emboli and right heart strain CTA chest demonstrated bilateral pulmonary emboli with a greater involvement in the mid to distal right main pulmonary artery with evidence of right heart strain. The patient remains hemodynamically stable on 5 L/min of supplemental oxygen. Echocardiogram demonstrated no significant RV dysfunction or pulmonary hypertension. Therefore, consideration for thrombectomy was not entertained. The patient has been maintained on a weight-based heparin infusion. From my perspective, he can be transition to an oral anticoagulation regimen, with plans to continue systemic anticoagulation lifelong. 2. History of coronary artery disease status post CABG/unspecified polycythemia/hypertension/hyperlipidemia/diabetes mellitus Complicates care, management, recovery and prognosis. Continue home medications as indicated. This note was generated with Gl[employer] dictation software. It may contain incorrect words, spelling, and punctuation that were not noted in checking the note before signing. Subjective Subjective The patient was seen and examined at the bedside this morning. Events from the last 24 hours have been reviewed. The patient is currently afebrile, hemodynamically stable and maintaining appropriate oxygen saturations on 5 L/min via nasal cannula. The patient remains on a weight-based heparin infusion. There are no plans to proceed with pulmonary thrombectomy. Objective Data Objective Data The patient's most recent lab work, culture data and imaging studies have all been personally reviewed. Surface echocardiogram demonstrated normal LV size and function with an ejection fraction of 70%. Normal RV size and function was noted. Pulmonary artery systolic pressure was estimated to be 35 mmHg. Vital Signs: Vital Signs Temp Pulse Resp BP Pulse Ox O2 Del Method O2 Flow Rate 97.1 F L 81 18 104/63 99 High Flow 5 06/09/24 03:53 06/09/24 03:53 06/09/24 03:53 06/09/24 03:53 06/09/24 03:53 06/09/24 03:59 06/09/24 03:59 FiO2 97 06/08/24 15:54 Oxygen Flow Rate (L/min) 5 Oxygen Delivery Method High Flow Weight: 157 lb 3.033 oz Body Mass Index (BMI) 22.5 Intake & Output: Intake and Output for Last 24 Hours 06/07/24 06/08/24 06/09/24 23:59 23:59 23:59 Intake Total 220.98 / 220.98 124.8 / 124.8 Output Total 410 / 410 Balance -189.02 / -189.02 124.8 / 124.8 Lab / Micro Data Attestation: I reviewed the patient's lab results. 06/09/24 06:06 06/09/24 06:06 Labs: Laboratory Results - last 24 hr 06/08/24 05:44: Sodium 137, Potassium 3.9, Chloride 105, Carbon Dioxide 22.0, Anion Gap 10, BUN 15, Creatinine 0.89, Estim Creat Clear Calc 65.65, Est GFR (MDRD) Af Amer 105, Est GFR (MDRD) Non-Af 87, BUN/Creatinine Ratio 16.8, Glucose 164 H, Calcium 9.9 06/08/24 11:50: POC Glucose 226 H 06/08/24 13:21: APTT 51.5 H 06/08/24 18:14: POC Glucose 182 H 06/08/24 20:09: APTT 61.3 H 06/08/24 22:13: POC Glucose 243 H 06/09/24 02:30: APTT 90.6 H* 06/09/24 06:06: WBC 9.4, RBC 4.46 L, Hgb 15.6, Hct 44.9, MCV 100.7 H, MCH 35.0 H, MCHC 34.7, RDW Std Deviation 46.5 H, RDW Coeff of Matt 12.3, Plt Count 195, MPV 9.8 06/09/24 06:25: POC Glucose 189 H Micro: Microbiology 06/07/24 21:05 Mucosa - Nose SARS-CoV-2, Influenza & RSV (PCR) - Final Radiography Diagnostic Testing: Radiology Impression Echocardiogram 06/08/24 02:38 Interpretation Summary The left ventricular ejection fraction is 70 %. Normal left ventricle. Normal RV size. Normal systolic function. Pulmonary artery systolic pressure is 35 mmHg. Ordering Physician: Gregg Jackson Performed By: Radha Martinez RDCS and Student Physical Exam Const alert and no apparent distress General Appearance: cooperative HEENT normocephalic, head/scalp atraumatic and moist oral mucous membranes Eyes PERRL, EOMs intact bilaterally and conjunctivae normal Neck supple General: trachea midline Chest inspection of chest normal Resp normal respiratory effort Auscultation: Negative for rales, rhonchi or wheezes Cardio regular rate and regular rhythm GI normal to inspection, nondistended, normoactive bowel sounds Extremity no clubbing, cyanosis or edema Skin no rashes or lesions noted Neuro CN's II-XII intact bilaterally, moves all extremities and no focal motor deficits Psych cooperative and affect normal Charges/Coding Visit Charges Inpatient E&M: 61882 Subs Hosp L2
[2024-06-09 07:55] VITALS: O2SAT 95
[2024-06-09 08:00] LABS: ALB/GLOB Ratio 0.9 RATIO (0.9-2.4); AST(SGOT) 23 U/L (15-37); Alanine Aminotransfer ALT/SGPT 30 U/L (16-61); Albumin, Serum 3.2 g/dL (3.2-5.0); Alkaline Phosphatase 67 U/L (45-117); Anion Gap 7 (5-15); BUN 19 mg/dL (7-18); BUN/Creat Ratio 19.1 RATIO (10-20); Calcium,Total 9.4 mg/dL (8.5-10.1); Chloride 104 mmol/L (98-107); EST Glomerular Filtration Rate 77 mL/min (>60); Est Glom Filt Rate - Afr Amer 93 mL/min (>60); Estimated Creatinine Clearance 58.43 ml/min; Globulin 3.7 g/dL (2.2-4.2); Glucose 189 mg/dL (74-106); Magnesium 2.4 mg/dL (1.6-2.6); Phosphorus 3.2 mg/dL (2.5-4.9); Potassium 3.9 mmol/L (3.5-5.1); Protein, Total 6.9 g/dL (6.4-8.2); Sodium Level 135 mmol/L (136-145)
[2024-06-09 08:19] VITALS: BP 123/57; PULSE 82; RESP 18; TEMP 36.8; O2SAT 95
[2024-06-09] MEDS: Carvedilol 6.25 MG Tablet PO ×2 (08:21→16:23)
[2024-06-09] MEDS: Lisinopril 5 MG Tablet PO (08:22)
[2024-06-09] MEDS: Multivitamins,Therapeutic Tablet 1 TABLET PO (08:22)
[2024-06-09] MEDS: Aspirin E.C. 81 MG Tablet PO (08:22)
[2024-06-09] MEDS: APIXABAN 5 MG TABLET 10 MG PO ×2 (10:03→21:07)
[2024-06-09 10:30] LABS: Partial Thromboplast Time 62.3 Seconds (24.1-36.2)
[2024-06-09 11:17] VITALS: O2SAT 84; O2SAT 85; O2SAT 86; O2SAT 88; O2SAT 94
[2024-06-09 11:29] LABS: Bedside Glucose 276 mg/dL (74-106)
--- NOTE | 2024-06-09 12:54 | PN.HOSP_ITS ---
Reason for Visit Reason for Visit: Shortness of breath Subjective Subjective Patient states he is overall feeling better. I did discuss with him that we will check his oxygenation with exertion. He cannot require more than 6 L with exertion to go home. I do suspect he will need more time for clot reabsorption and for oxygen weaning prior to discharge however we will assess and see how he is doing. No intervention planned so I did discuss with him transitioning from heparin drip to Eliquis p.o. Objective Data Objective Data Vital Signs: Vital Signs Temp Pulse Resp BP Pulse Ox O2 Del Method O2 Flow Rate 98.2 F 82 18 123/57 H 86 High Flow 0 06/09/24 08:19 06/09/24 08:19 06/09/24 08:19 06/09/24 08:19 06/09/24 11:17 06/09/24 08:24 06/09/24 11:17 FiO2 97 06/08/24 15:54 Oxygen Flow Rate (L/min) [ 8 AMBULATING with Oxygen #3] Oxygen Flow Rate (L/min) [ 6 AMBULATING with Oxygen #2] Oxygen Flow Rate (L/min) [ 4 AMBULATING with Oxygen #1] Oxygen Flow Rate (L/min) [At 5 REST with Oxygen] Oxygen Flow Rate (L/min) [At 0 REST on Room Air] Oxygen Flow Rate (L/min) 5 Oxygen Delivery Method High Flow Weight: 71.3 kg Body Mass Index (BMI) 22.5 Intake & Output: Intake and Output for Last 24 Hours 06/07/24 06/08/24 06/09/24 23:59 23:59 23:59 Intake Total 220.98 / 220.98 170.4 / 170.4 Output Total 410 / 410 Balance -189.02 / -189.02 170.4 / 170.4 Lab / Micro Data 06/09/24 06:06 06/09/24 06:06 Labs: Laboratory Results - last 24 hr 06/08/24 11:50: POC Glucose 226 H 06/08/24 13:21: APTT 51.5 H 06/08/24 18:14: POC Glucose 182 H 06/08/24 20:09: APTT 61.3 H 06/08/24 22:13: POC Glucose 243 H 06/09/24 02:30: APTT 90.6 H* 06/09/24 06:06: WBC 9.4, RBC 4.46 L, Hgb 15.6, Hct 44.9, MCV 100.7 H, MCH 35.0 H , MCHC 34.7, RDW Std Deviation 46.5 H, RDW Coeff of Matt 12.3, Plt Count 195, MPV 9.8, Sodium 135 L, Potassium 3.9, Chloride 104, Carbon Dioxide 24.0, Anion Gap 7, BUN 19 H, Creatinine 1.00, Estim Creat Clear Calc 58.43, Est GFR (MDRD) Af Amer 93, Est GFR (MDRD) Non-Af 77, BUN/Creatinine Ratio 19.1, Glucose 189 H, Calcium 9.4, Phosphorus 3.2, Magnesium 2.4, Total Bilirubin 1.00, AST 23, ALT 30, Alkaline Phosphatase 67, Total Protein 6.9, Albumin 3.2, Globulin 3.7, Albumin/Globulin Ratio 0.9 06/09/24 06:25: POC Glucose 189 H 06/09/24 09:58: APTT 62.3 H 06/09/24 10:54: POC Glucose 276 H Micro: Microbiology 06/07/24 21:05 Mucosa - Nose SARS-CoV-2, Influenza & RSV (PCR) - Final Physical Exam Const alert, oriented x3, no apparent distress and well nourished Constitutional Narrative: Elderly, white male, lying in bed, and nursing at bedside, patient currently appears comfortable on 5 L nasal cannula with high flow, does not appear toxic General Appearance: cooperative HEENT normocephalic and head/scalp atraumatic Resp normal respiratory effort, normal air movement, no retractions, no use of accessory muscles and clear to auscultation bilaterally Auscultation: Negative for rales, rhonchi or wheezes Cardio regular rate, regular rhythm, S1 normal heart sound, S2 normal heart sound, no murmurs, no rub, no gallops and no clicks Rate: tachycardic GI normal to inspection, nondistended, normoactive bowel sounds, soft to palpation and non-tender Extremity normal capillary refill and no clubbing, cyanosis or edema Extremity Narrative: Pedal and radial pulses are 2+ Skin General Skin Exam: no breakdown Neuro oriented x3 and moves all extremities Neuro Narrative: Slight bradykinesia noted Speech: speech normal Psych affect normal Psych Narrative: Very pleasant, eye contact good, patient interacts appropriately Assessment & Plan Assessment/Plan (1) Pulmonary embolism: QUALIFIERS: Pulmonary embolism type: other Chronicity: acute A cute cor pulmonale presence: without acute cor pulmonale Qualified Code(s): I 26.99 - Other pulmonary embolism without acute cor pulmonale PLAN: Plan Acute hypoxic respiratory failure secondary to large bilateral pulmonary emboli -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 -Initial troponin and BNP unremarkable however RV strain noted on CT scan -Vascular and pulmonary medicine have evaluated the patient and are not recommending intervention at this time -Echocardiogram demonstrated EF of 70% with no regional wall motion abnormalities, the inferobasilar wall is akinetic, pulmonary artery systolic pressures are 35 mmHg -Discontinue heparin drip -Transition to Eliquis 10 mg twice daily x 7 days then 5 mg twice daily -Would recommend outpatient hematology follow-up after discharge -Currently requiring 4 to 5 L of nasal cannula during rest and ambulatory pulse ox was assessed and pulse ox was 88% on 8 L nasal cannula -Wean as able -Highly anticipate patient will need to discharge with oxygen but will need to be on less than 6 L nasal cannula with exertion to be able to discharge Hypercalcemia -10.6 on admission with repeat pending -Discontinue home calcium supplementation -Resolved on repeat and no further workup required at this time Erythrocytosis -Resolved History of DVT -2019 -Anticoagulation as noted above--> patient reports previously being on Xarelto -The patient was not anticoagulated at the time of new PE CAD/HTN/HPL -PCI to the Distal RCA and PTCA/Stent x2 to Mid-Proximal RCA 05/04/14 -CABG x5- BYERS to LAD, SVG to Diagonal, SVG to OM1, SVG to OM3, SVG to RCA 04/05/14 -Continue home aspirin but reduce dose from 162 mg to 81 mg -Continue home lisinopril -Continue home carvedilol -Continue statin Third-degree heart block -Patient has permanent pacemaker DM-2 -Hold metformin -Hold glipizide -Add SSI -Accu-Cheks ordered -Continue cardiac/carb controlled diet DVT prophylaxis -Eliquis started today Charges/Coding Visit Charges Inpatient E&M: 22746 Subs Hosp L2
[2024-06-09 15:00] VITALS: BP 118/78; PULSE 83; RESP 18; TEMP 36.7; O2SAT 95
[2024-06-09 16:23] LABS: Bedside Glucose 207 mg/dL (74-106)
[2024-06-09 21:02] VITALS: BP 120/76; PULSE 79; RESP 18; TEMP 36.5; O2SAT 95
[2024-06-09] MEDS: 0.9% Saline Lock 10 ML Syringe IV (21:09)
[2024-06-09 23:33] LABS: Bedside Glucose 230 mg/dL (74-106)
[2024-06-10 03:54] VITALS: BP 114/65; PULSE 89; RESP 18; TEMP 36.8; O2SAT 97
[2024-06-10] MEDS: Insulin Lispro 100 UNIT/ML INSULN.PEN SC ×2 (06:10→11:32)
[2024-06-10 06:49] LABS: Bedside Glucose 191 mg/dL (74-106)
[2024-06-10 08:17] VITALS: O2SAT 96
[2024-06-10 09:06] VITALS: O2SAT 88; O2SAT 92; O2SAT 95
[2024-06-10 09:10] VITALS: BP 132/73; PULSE 81; RESP 18; TEMP 36.6; O2SAT 95
[2024-06-10] MEDS: Multivitamins,Therapeutic Tablet 1 TABLET PO (09:12)
[2024-06-10] MEDS: Lisinopril 5 MG Tablet PO (09:12)
[2024-06-10] MEDS: Carvedilol 6.25 MG Tablet PO (09:12)
[2024-06-10] MEDS: APIXABAN 5 MG TABLET 10 MG PO (09:12)
[2024-06-10] MEDS: Aspirin E.C. 81 MG Tablet PO (09:12)
[2024-06-10 09:14] VITALS: O2SAT 96
[2024-06-10 11:54] LABS: Bedside Glucose 295 mg/dL (74-106)
--- NOTE | 2024-06-10 12:33 | PCM.DC.SUM ---
Providers Date of Admission: 06/08/24 Date of Discharge: 06/10/24 Primary Care Physician: Dr. Hector Roberts, Consultations 06/08/24 07:41 Consult: Perfect Bind Machine Operator / Pulmonary Medicine Routine Consulting Provider: Intensivists/Pulmonary Med Reason for Consult: PE EMERGENT Consult: No Notified: Yes Date Notified: 06/08/24 Time Notified: 07:42 Method of Notification: Verbal Consult: Vascular Surgery Routine Consulting Provider: Tanner Liao Reason for Consult: PE EMERGENT Consult: No Notified: Yes Date Notified: 06/08/24 Time Notified: 07:41 Method of Notification: Verbal Reason For Visit: BILATERAL PULMONARY EMBOLI Diagnosis Discharge Diagnosis (1) Pulmonary embolism: Status: Acute Code(s): I26.99 - Other pulmonary embolism without acute cor pulmonale Qualifiers: Pulmonary embolism type: other Chronicity: acute Acute cor pulmonale presence: without acute cor pulmonale Qualified Code(s): I26.99 - Other pulmonary embolism without acute cor pulmonale Medications at Discharge Home Medications calcium carbonate (Calcium 600) 600 mg PO QDAY 02/17/18 pravastatin 40 mg tablet 40 mg PO QDAY Cholesterol 02/17/18 multivitamin 1 tab PO QDAY 02/20/18 nitroglycerin 0.4 mg sublingual tablet 0.4 mg sublingual Q5M PRN chest pain #25 tabs 01/10/20 glipizide 5 mg tablet 5 mg PO DAILY 01/21/22 lisinopril 5 mg tablet 5 mg PO DAILY #90 tabs 09/20/22 carvedilol 6.25 mg tablet 6.25 mg PO BID #180 tabs 08/11/23 metformin 500 mg tablet,extended release 24hr (osmotic) 500 mg PO BID 09/19/23 apixaban 5 mg tablet (Eliquis) 5 mg PO BID #60 tabs 06/10/24 apixaban 5 mg tablet (Eliquis) 10 mg (2 x 5 mg) PO BID #11 tabs 06/10/24 aspirin 81 mg tablet,delayed release 81 mg PO DAILYCM #0 tabs 06/10/24 Hospital Course Operations None Procedures 2-D Echocardiogram, EKG and - (CTA chest) Summary of Care Provided Minutes Spent on Discharge: 38 Hospital Course: Mr. Blankenship is an 83-year-old white male who presented to the emergency department at [facility] on 06/07/2024 with a chief complaint of shortness of breath. He reported he had been progressively worsening over about a week and he felt diffusely weak as well. He has been having difficulty ambulating due to the weakness and shortness of breath. He complained of mid shortness of breath just ambulating after about 50 feet. He denied any lower extremity edema and has a history of DVT remotely. He denies any sick contacts, chest pain, cough, fever, or chills. Vital signs on presentation showed a temperature of 97.2, heart rate 115, blood pressure 118/105, respiratory rate was 20-22 and oxygen saturations were initially 93% on room air however the next documentation has him at 87% on 3 L so I am unsure exactly what his FiO2 requirements were and what his room air pulse ox was on admission. His CBC had a normal white count however he did have a significant elevated hemoglobin at 17.4 which he has had previously. Platelet count was normal and there was no left shift. Coags were normal. His CMP was unremarkable other than some mild hyperglycemia with a blood sugar of 141 and hypercalcemia with a calcium of 10.6. Troponin was normal at [address] was [address] CT of the chest showed large bilateral pulmonary emboli with evidence of right heart strain, mild bilateral peribronchial thickening and right posterior lateral upper lobe opacity that was felt to be atelectasis but could represent infarct. There is also a subacute to chronic anterior compression deformity of T12 that was new compared to previous imaging from 2018. Heparin drip was initiated by the emergency department and continued on admission. He was maintained on a heparin drip and his echocardiogram was performed to assess for RV strain. Echo showed an EF of 70% with a normal LV and normal RV size with a pulmonary artery systolic pressure of 35 mmHg. Given his findings on echo, risk versus benefit ratio for thrombectomy was great so anticoagulation was maintained. Once he was deemed not an interventional candidate we transitioned him from heparin drip to p.o. Eliquis 10 mg p.o. twice daily which she will continue through 06/15/2024. He required a significant amount of supplemental oxygen up to 6 L heated high flow during his hospital stay. With time we were slowly able to wean his oxygen and at the time of discharge she was requiring 2 L at rest and 2 L with exertion to maintain oxygen saturations greater than or equal to 89%. I did review the oxygen testing and the patient qualifies for home equipment with portability as the patient is mobile in the home and in the community. Case management assisted with arranging oxygen at discharge. He was discharged with prescription for Eliquis 10 mg p.o. twice daily for another 11 doses at which time he will then transition to 5 mg p.o. 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 Given his history, I have asked that he follow-up with hematology and he plans on calling for follow-up appointment after discharge. We did discuss there is no urgency to this at this time. He will also follow-up with pulmonary medicine within the next 3 months and have asked that he follow-up with his primary care physician within the next week. He states he already has an appointment to be seen next Friday. He is to stay on supplemental oxygen until instructed otherwise by physician. He does have a home pulse oximeter and we did discuss that his oxygen saturations needed to be greater than 89%. He was discharged home in stable condition on 06/10/2024. 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 DM-2 Physical Exam Const alert, oriented x3, no apparent distress, average body habitus and well nourished Constitutional Narrative: Elderly, white male, lying in bed, and nursing at bedside, patient currently appears comfortable on 5 L nasal cannula with high flow, does not appear toxic General Appearance: cooperative, comfortable, well kempt and well developed Orientation / Consciousness: awake, oriented to person, oriented to place and oriented to time Exam Limitations: no limitations HEENT normocephalic, head/scalp atraumatic and moist oral mucous membranes HEENT Narrative: Moderate to severe hearing loss, dentition is poor, Mallampati is 3, no thrush Eyes PERRL, EOMs intact bilaterally and conjunctivae normal Eyes Narrative: No scleral icterus Neck no lymphadenopathy and supple Neck Narrative: Trachea midline, no thyroid enlargement Resp normal respiratory effort, normal air movement, no retractions, no use of accessory muscles and clear to auscultation bilaterally Auscultation: Negative for rales, rhonchi or wheezes Cardio regular rate, regular rhythm, S1 normal heart sound, S2 normal heart sound, no murmurs, no rub, no gallops and no clicks GI normal to inspection, nondistended, normoactive bowel sounds, soft to palpation and non-tender Extremity no clubbing, cyanosis or edema Extremity Narrative: Pedal and radial pulses are 2+ Skin no rashes or lesions noted, no wounds, skin turgor normal and no jaundice Neuro oriented x3, moves all extremities, no focal motor deficits and no sensory deficits noted Neuro Narrative: Slight bradykinesia noted Speech: speech normal Psych Psych Narrative: Very pleasant, eye contact good, patient interacts appropriately Weight / BMI Weight Weight: 71.3 kg Body Mass Index (BMI) 22.5 ABG / Lab / Microbiology Data 06/09/24 06:06 06/09/24 06:06 Laboratory: Laboratory Results - last 24 hr 06/09/24 15:53: POC Glucose 207 H 06/09/24 21:05: POC Glucose 230 H 06/10/24 06:09: POC Glucose 191 H 06/10/24 11:30: POC Glucose 295 H Microbiology: Microbiology 06/07/24 21:05 Mucosa - Nose SARS-CoV-2, Influenza & RSV (PCR) - Final D/C Instructions Discharge Diet: Low fat / Low cholesterol and 1800 Calorie Control Diet Discharge Activity: Return to Normal Activity (Advance activity slowly as tolerated) Meaningful Use Info Meaningful Use Meaningful Use Diagnoses (Choose all that apply): VTE Ischemic Stroke Statin Dosing Therapy Reference: STATIN DOSE THERAPY REFERENCE: * Patients > 75 years receive moderate or high dose statin therapy. * Patients 75 years or YOUNGER should receive HIGH intensity statin dose unless contraindicated. You will be required to document reason for non-treatment if statin daily dose does not meet guidelines. HIGH DOSE STATIN THERAPY DAILY Atorvastatin > than or = to 40 mg Rosuvastatin > than or = to 20 mg Amlodipine + Atorvastatin > than or = to 2.5/40 mg Ezetimibe + Simvastatin 10/80 mg Simvastatin 80mg VTE Anticoag overlap given w/in hospital stay or rx'd at dc?: No Pt receive overlap for 5 days?: No Reason overlap not ordered, prescribed, or given for 5 days: Procedure Not Indicated (On DOAC) Discharge Plan Admission Admit Date/Time: 06/08/24 01:06 Primary Reason for Your Visit: Shortness of breath Attending Provider: Skyla Mcknight Primary Care Provider: Hector Roberts Consulting Providers: Gregg Jackson; Tanner Liao Instructions Additional Instructions / Restrictions: 1. We did check your oxygen levels prior to discharge and you do need supplemental oxygen both at rest and while moving around. You need 2 L for both of these activities. With time I do anticipate that you will come off oxygen as your blood clot reabsorbs. 2. Do not stop wearing your oxygen until interested to do so by a physician. 3. Since you are now on full anticoagulation we decreased your aspirin dose from 162 mg daily to 81 mg daily. Discharge Orders/Prescriptions Prescriptions: New aspirin 81 mg Tablet,Delayed Release (Dr/Ec) 81 mg PO DAILYCM Qty: 0 0RF Eliquis 5 mg Tablet 10 mg PO BID Qty: 11 0RF Rx Instructions: Take starting tonight until complete Eliquis 5 mg Tablet 5 mg PO BID Qty: 60 2RF Rx Instructions: Start date is 06/16/2024 Continued multivitamin tablet 1 tab PO QDAY calcium carbonate [Calcium 600] 600 mg calcium (1,500 mg) tablet 600 mg PO QDAY pravastatin 40 mg tablet 40 mg PO QDAY Patient Comments: Pt states not taking anymore. nitroglycerin 0.4 mg tablet, sublingual 0.4 mg SUBLINGUAL Q5M PRN (Reason: chest pain) Qty: 25 1RF Rx Instructions: until response; do not exceed 3 doses per event glipizide 5 mg tablet 5 mg PO DAILY Patient Comments: TAKE ONE TABLET BY MOUTH EVERY DAY metformin 500 mg tablet extended release 24hr 500 mg PO BID Patient Comments: TAKE ONE TABLET BY MOUTH TWICE DAILY lisinopril 5 mg tablet 5 mg PO DAILY Qty: 90 3RF carvedilol 6.25 mg tablet 6.25 mg PO BID Qty: 180 3RF Rx Instructions: must administer with a meal/food Discontinued aspirin 81 mg tablet,delayed release (DR/EC) 162 mg PO QDAY Referrals / Follow Up: Jkae Espinal DO [Med Staff - Active Staff] - Within 3 Months (Pulmonary embolism) Gregg Cade DO [Med Staff - Active Staff] - Within 3 Months (For recurrent blood clots. Call either later today or tomorrow and set up an appointment at Dr. Masci's first availability) Hector Roberts DO [Primary Care Provider] - See Referral Note (Follow-up as scheduled for next week) Disposition Disposition (needs filled in before D/C Order can be placed): Home, Self Care Charges/Coding Visit Charges Inpatient E&M: 37427 Disch Hosp >30min
[2024-06-10 13:06] VITALS: BP 132/73; PULSE 81; RESP 18; TEMP 36.6; O2SAT 95
--- NOTE | 2024-06-10 13:13 | CHAPLAIN ---
Type of Pastoral Visit _x__ Initial Visit ___ Follow-up Visit ___ On-call Visit ___ General Patient Visit ___ Spiritual Assessment ___ Family Conference ___ Bereavement ___ Rapid Response ___ Code Blue ___ Other (describe below) Pastoral Care Referral From _x__ Patient ___ Family ___ Nurse ___ Physician ___ Social Work Job Titles ___ Director Of Student Life ___ Other (describe below) Sacrament/Intervention _x__ Active listening ___ Anointing ___ Religion ___ Bereavement ___ Communion ___ Eleonora exploration ___ ___ Life review ___ Prayer ___ Reconciliation ___ Sacrament of Sick ___ Supportive presence ___ Wedding ___ Other (describe below) Pastoral Comments patient has several family members visiting in the room; pt states that he is doing better now and that the situation has a remedy; pt states his health status and that he is expecting to be better soon; pt declines any further concerns
--- NOTE | 2024-06-10 16:05 | CASEMGMT ---
Patient has order for discharge. Patient qualifies for home oxygen, script received and [place] [facility] [place] [facility] and tank provided from [employer]. REGINALD CARUSO in to discuss needs at discharge with patient. Patient states he would like [facility] and prefers [facility], declined list for [facility]. Patient is discharging on Eliquis, REGINALD CARUSO called patient's pharmacy and copay is $27.49. REGINALD CARUSO provided patient with Eliquis savings card. REGINALD CARUSO called and made referral to [facility] and they are able to accept patient with start of care planned for tomorrow. REGINALD CARUSO updated patient with start of care for tomorrow. Patient denied further questions or concerns. REGINALD CARUSO updated discharge plan.
== END 2024-06-10 16:54 | disposition home health service (06) | DRG 175 ==
LOC: ED 06-08 01:13 → PCU 06-08 01:37
PROVIDERS: Admitting Provider Family Medicine; Emergency Provider Emergency Medicine; Visit Provider Internal Medicine
DX: I26.99 Other pulmonary embolism without acute cor pulmonale (principal); J96.01 Acute respiratory failure with hypoxia; I44.2 Atrioventricular block, complete; I25.810 Atherosclerosis of coronary artery bypass graft(s) without angina pectoris; E11.65 Type 2 diabetes mellitus with hyperglycemia; D75.1 Secondary polycythemia; J44.9 Chronic obstructive pulmonary disease, unspecified; G20.A1 Parkinson's disease without dyskinesia, without mention of fluctuations; I10 Essential (primary) hypertension; E78.00 Pure hypercholesterolemia, unspecified; E83.52 Hypercalcemia; I25.10 Atherosclerotic heart disease of native coronary artery without angina pectoris; Z79.84 Long term (current) use of oral hypoglycemic drugs; Z11.52 Encounter for screening for COVID-19; Z79.899 Other long term (current) drug therapy; Z86.718 Personal history of other venous thrombosis and embolism; Z87.891 Personal history of nicotine dependence; Z95.0 Presence of cardiac pacemaker; Z95.1 Presence of aortocoronary bypass graft; Z95.5 Presence of coronary angioplasty implant and graft
CPT/HCPCS: 36415; 71275; 80048; 80053; 82962; 83735; 83880; 84100; 84484; 85025; 85027; 85610; 85730; 87631; 93005; 93306; 94760; 94762; 97110; 97116; 97162; 97166; 97530; 97802; 99284; Q9967; A4216